=== PATIENT | female | born 1960 | race Caucasian/White ===

== ENCOUNTER → 2018-09-23 06:48 | Outpatient (CLI) | payer OTHER, SELFPAY ==
[2018-09-11 17:25] VITALS: BMI 29.0
[2018-09-23 09:00] LABS: Color, Urine Yellow (Yellow); Glucose, Dipstick Normal (Normal); Ketone-Dipstick Negative (Negative); Leukocyte Esterase-Dipstick 500 /ul (Negative); Nitrite-Dipstick Negative (Negative); Occult Blood-Urine 50 /ul (Negative); Protein-Dipstick Negative (Negative); Specific Gravity, Urine 1.015 (1.002-1.030); Urine Bilirubin Dipstick Negative (Negative); Urine Clarity Sl. Cloudy (Clear); Urine Urobilinogen Normal (Normal)
[2018-09-23 09:04] LABS: Absolute Lymphocyte Count 2.35 X10^3/ul (0.83-4.51); Basophil# 0.03 X10^3/uL; Basophil% 0.5 % (0-1); Eosinophil# 0.17 X10^3/uL; Eosinophils% 2.8 % (0-5); Hematocrit 39.7 % (37-47); Hemoglobin 12.9 g/dl (12.0-15.0); Lymphocyte # 2.35 X10^3/ul (4.0); Mean Corp Hgb Conc 32.5 g/gl (32-36); Mean Corpuscular Hgb 29.5 pg (27.0-32.0); Mean Corpuscular Volume 90.8 fL (81-99); Mean Platelet Vol. 10.6 fl (6.2-12.0); Monocyte# 0.49 X10^3/uL; Monocyte% 8.1 % (0-10); Neutrophil # 2.99 X10^3/uL (2.7-7.7); Neutrophil % 49.6 % (47-70); Platelet Count 258 K/mm3 (150-450); RBC Distribution Width CV 12.7 % (11.6-14.6); RBC Distribution Width SD 42.5 fl (35.1-43.9); Red Blood Count 4.37 M/mm3 (4.2-5.4)
[2018-09-23 09:06] LABS: POSITIVE COUNT NO; POSITIVE DIFFERENTIAL NO; POSITIVE MORPHOLOGY NO
[2018-09-23 09:12] LABS: White Blood Cells 10-25 SEEN /hpf (0-5)
[2018-09-23 09:13] LABS: Red Blood Cells-Urine 0-5 SEEN /hpf (0-5)
[2018-09-23 09:14] LABS: Bacteria 2+ /hpf (None Seen); Mucous, Urine RARE /hpf (<or=2+); Squamous Epithelial Cells - UA 0-5 SEEN /hpf (5-10)
[2018-09-23 09:25] LABS: Anion Gap 9 (5-15); BUN 15 mg/dL (7-18); BUN/Creat Ratio 17.6 RATIO (10-20); Calcium,Total 8.8 mg/dL (8.5-10.1); Chloride 106 mmol/L (98-107); Cholesterol 164 mg/dL (200); Creatinine, Serum 0.85 mg/dL (0.55-1.02); EST Glomerular Filtration Rate 73 mL/min (>60); Est Glom Filt Rate - Afr Amer 89 mL/min (>60); Glucose 83 mg/dL (74-106); High Density Lipoprotein 67 mg/dL; Potassium 4.4 mmol/L (3.5-5.1); Sodium Level 143 mmol/L (136-145); Triglycerides 64 mg/dL; Very Low Density Lipoprotein 13 mg/dL (5-40)
[2018-09-27 11:22] LABS: HPV APTIMA, High Risk Negative (Negative)
== END ==
PROVIDERS: Family Provider Internal Medicine; PCP Internal Medicine; Referring Provider Internal Medicine; Visit Provider Internal Medicine
DX: Z00.00 Encounter for general adult medical examination without abnormal findings (principal); Z12.4 Encounter for screening for malignant neoplasm of cervix; R31.9 Hematuria, unspecified
CPT/HCPCS: 36415; 80048; 80061; 81001; 85025; 87086; 87088; 87186; 87624; 88175; G0145

== ENCOUNTER → 2018-10-11 16:12 | Outpatient (CLI) | payer OTHER, SELFPAY ==
[2018-09-23 08:03] VITALS: BMI 29.2
[2018-10-11 16:16] LABS: Bacteria 0 SEEN /hpf (None Seen); Mucous, Urine 0 SEEN /hpf (<or=2+)
[2018-10-11 17:23] LABS: Color, Urine Yellow (Yellow); Glucose, Dipstick Normal (Normal); Ketone-Dipstick Negative (Negative); Leukocyte Esterase-Dipstick 100 /ul (Negative); Nitrite-Dipstick Negative (Negative); Occult Blood-Urine 25 /ul (Negative); Protein-Dipstick Negative (Negative); Urine Bilirubin Dipstick Negative (Negative); Urine Urobilinogen Normal (Normal)
[2018-10-11 17:36] LABS: Red Blood Cells-Urine 0-5 SEEN /hpf (0-5); Squamous Epithelial Cells - UA 0-5 SEEN /hpf (5-10); Urine Clarity Sl Cldy (Clear); White Blood Cells 5-10 SEEN /hpf (0-5)
== END ==
PROVIDERS: Family Provider Internal Medicine; PCP Internal Medicine; Referring Provider Internal Medicine; Visit Provider Internal Medicine
DX: N39.0 Urinary tract infection, site not specified (principal)
CPT/HCPCS: 81001

== ENCOUNTER → 2018-11-15 13:07 | Outpatient (CLI) | payer OTHER, SELFPAY ==
[2018-09-23 08:03] VITALS: BMI 29.2
[2018-11-15 13:17] LABS: Bacteria 0 SEEN /hpf (None Seen); Mucous, Urine 0 SEEN /hpf (<or=2+); Red Blood Cells-Urine 0 SEEN /hpf (0-5); Squamous Epithelial Cells - UA 0 SEEN /hpf (5-10); White Blood Cells 0 SEEN /hpf (0-5)
[2018-11-15 16:00] LABS: Color, Urine Yellow (Yellow); Glucose, Dipstick Normal (Normal); Ketone-Dipstick Negative (Negative); Leukocyte Esterase-Dipstick 25 /ul (Negative); Nitrite-Dipstick Negative (Negative); Occult Blood-Urine 10 /ul (Negative); Protein-Dipstick Negative (Negative); Specific Gravity, Urine 1.005 (1.002-1.030); Urine Bilirubin Dipstick Negative (Negative); Urine Clarity Clear (Clear); Urine Urobilinogen Normal (Normal)
== END ==
PROVIDERS: Family Provider Internal Medicine; PCP Internal Medicine; Referring Provider Internal Medicine; Visit Provider Internal Medicine
DX: R31.9 Hematuria, unspecified (principal)
CPT/HCPCS: 81001

== ENCOUNTER → 2019-04-12 07:51 | Outpatient (CLI) | payer OTHER, SELFPAY ==
[2018-11-21 17:20] VITALS: BMI 29.2
--- NOTE | 2019-04-12 08:01 | BI_ITS ---
MAMMOGRAPHY - BILATERAL SCREENING REASON FOR EXAM: Female, 58 years old. Routine annual screening examination. PERTINENT HISTORY: Personal history of breast cancer. History of prior left mastectomy with TRAM flap reconstructive surgery. TECHNIQUE: Digital bilateral breast chelle (3D mammographic acquisition) in the CC and MLO projections. 2-D mediolateral oblique (MLO) and craniocaudad (CC) views of both breasts were obtained. CAD: Full Field Digital Mammography with Computer Added Detection was performed. COMPARISON: Comparison is made with prior examination dated March 29, 2018. FINDINGS: Breast Composition: There are scattered areas of fibroglandular density. There are no dominant masses or suspicious calcifications. Surgical clips are seen in the axillary region of the left breast. No other significant abnormalities are identified. There has been no significant change since the prior study. BI/SCREENING MAMM (CAD), BILAT IMPRESSION: Stable bilateral screening mammogram. Yearly follow-up mammogram recommended. (A) ASSESSMENT CATEGORY: BIRADS Category 2: Benign. A letter regarding these results will be sent to the patient by the facility within 30 days. Approximately 10% of breast cancers are not detected by mammography. A normal mammogram should not delay biopsy of a clinically suspicious abnormality. [id number] Electronically Signed: Aba Moralez, at 10:42 EDT , Service support ,
== END ==
PROVIDERS: Family Provider Internal Medicine; PCP Internal Medicine; Referring Provider Obstetrics & Gynecology; Visit Provider Obstetrics & Gynecology
DX: Z12.31 Encounter for screening mammogram for malignant neoplasm of breast (principal)
CPT/HCPCS: 77067

== ENCOUNTER → 2019-05-23 12:25 | Outpatient (CLI) | payer OTHER, SELFPAY ==
[2019-02-28 12:54] VITALS: BMI 29.2
[2019-05-23 12:34] LABS: Mucous, Urine 0 SEEN /hpf (<or=2+); White Blood Cells 0 SEEN /hpf (0-5)
[2019-05-23 13:08] LABS: Color, Urine Yellow (Yellow); Glucose, Dipstick Normal (Normal); Ketone-Dipstick Negative (Negative); Leukocyte Esterase-Dipstick Negative /ul (Negative); Nitrite-Dipstick Negative (Negative); Occult Blood-Urine 25 /ul (Negative); Protein-Dipstick Negative (Negative); Urine Bilirubin Dipstick Negative (Negative); Urine Clarity Sl. Cloudy (Clear); Urine Urobilinogen Normal (Normal)
[2019-05-23 13:18] LABS: Bacteria RARE /hpf (None Seen); Red Blood Cells-Urine 0-5 SEEN /hpf (0-5); Squamous Epithelial Cells - UA 0-5 SEEN /hpf (5-10)
== END ==
PROVIDERS: Family Provider Internal Medicine; PCP Internal Medicine; Referring Provider Internal Medicine; Visit Provider Internal Medicine
DX: N39.0 Urinary tract infection, site not specified (principal)
CPT/HCPCS: 81001

== ENCOUNTER → 2019-12-02 08:54 | Outpatient (CLI) | payer OTHER, SELFPAY ==
[2019-12-02 08:25] VITALS: BMI 27.3
[2019-12-02 12:26] LABS: Absolute Lymphocyte Count 2.08 X10^3/uL (0.83-4.51); Absolute Neutrophil Count 2.9 X10^3/uL (2.0-7.7); Basophil# 0.05 X10^3/uL; Basophil% 0.9 % (0-1); Eosinophil# 0.19 X10^3/uL; Eosinophils% 3.3 % (0-5); Hematocrit 42.4 % (37-47); Hemoglobin 13.6 g/dL (12.0-15.0); Lymphocyte # 2.08 X10^3/ul (4.0); Lymphocyte % 36.5 % (19-41); Mean Corp Hgb Conc 32.1 g/dL (32-36); Mean Corpuscular Hgb 29.8 pg (27.0-32.0); Mean Platelet Vol. 10.8 fl (6.2-12.0); Monocyte# 0.48 X10^3/uL; Monocyte% 8.4 % (0-10); NRBC Flagged by Analyzer 0 % (0-5); Neutrophil # 2.89 X10^3/uL (2.7-7.7); Neutrophil % 50.7 % (47-70); Platelet Count 275 K/mm3 (150-450); RBC Distribution Width CV 12.6 % (11.6-14.6); Red Blood Count 4.56 M/mm3 (4.2-5.4); White Blood Count 5.7 K/mm3 (4.4-11.0)
[2019-12-02 12:42] LABS: ALB/GLOB Ratio 1.2 RATIO (0.9-2.4); AST(SGOT) 24 U/L (15-37); Alanine Aminotransfer ALT/SGPT 32 U/L (13-56); Albumin, Serum 4.1 g/dL (3.2-5.0); Alkaline Phosphatase 98 U/L (45-117); Anion Gap 5 (5-15); BUN 12 mg/dL (7-18); BUN/Creat Ratio 14.5 RATIO (10-20); Calcium,Total 9.5 mg/dL (8.5-10.1); Chloride 107 mmol/L (98-107); Cholesterol 183 mg/dL (200); Creatinine, Serum 0.82 mg/dL (0.55-1.02); EST Glomerular Filtration Rate 76 mL/min (>60); Est Glom Filt Rate - Afr Amer 92 mL/min (>60); Globulin 3.5 g/dL (2.2-4.2); Glucose 87 mg/dL (74-106); High Density Lipoprotein 74 mg/dL; Potassium 4.1 mmol/L (3.5-5.1); Protein, Total 7.6 g/dL (6.4-8.2); Sodium Level 141 mmol/L (136-145); Triglycerides 74 mg/dL; Very Low Density Lipoprotein 15 mg/dL (5-40)
== END ==
PROVIDERS: PCP Internal Medicine; Visit Provider Internal Medicine
DX: Z00.00 Encounter for general adult medical examination without abnormal findings (principal)
CPT/HCPCS: 36415; 80053; 80061; 85025

== ENCOUNTER → 2020-05-06 17:00 | Outpatient (CLI) | payer OTHER, SELFPAY ==
[2019-10-01 09:26] VITALS: BMI 29.2
[2020-03-29 17:12] VITALS: BMI 29.2
--- NOTE | 2020-05-06 16:55 | BI_ITS ---
MAMMOGRAPHY - UNILATERAL SCREENING: RIGHT BREAST REASON FOR EXAM: Female, 59 years old. Routine annual screening examination (unilateral). PERTINENT HISTORY: Personal history of breast cancer with previous left mastectomy. TECHNIQUE: Digital examination. Mediolateral oblique (MLO) and craniocaudad (CC) views of the breast were obtained, along with 3-D tomosynthesis. CAD: CAD was performed on this study. COMPARISON: 04/12/2019 FINDINGS: Breast Composition: There are scattered areas of fibroglandular density. There are no dominant masses or suspicious calcifications. No other significant abnormalities are identified. BI/SCREEN MAMM (CAD) W/JAIMEE UNI R IMPRESSION: Stable bilateral screening mammogram. ASSESSMENT CATEGORY: BIRADS Category 2: Benign. A letter regarding these results will be sent to the patient by the facility within 30 days. FOLLOW UP RECOMMENDATION: Yearly follow up mammogram recommended. (A) [id number] Approximately 10% of breast cancers are not detected by mammography. A normal mammogram should not delay biopsy of a clinically suspicious abnormality. [id number] Electronically Signed: Bradford Henson MD at 8:16 EDT , Service support ,
== END ==
PROVIDERS: Family Provider Internal Medicine; PCP Internal Medicine; Referring Provider Obstetrics & Gynecology; Visit Provider Obstetrics & Gynecology
DX: Z12.31 Encounter for screening mammogram for malignant neoplasm of breast (principal); Z85.3 Personal history of malignant neoplasm of breast; Z90.12 Acquired absence of left breast and nipple
CPT/HCPCS: 77063; 77067

== ENCOUNTER → 2020-07-06 | Outpatient (CLI) | payer OTHER, SELFPAY ==
[2020-07-06 06:21] VITALS: BMI 29.2
[2020-07-06 10:22] LABS: Mucous, Urine 0 SEEN /hpf (<or=2+); Squamous Epithelial Cells - UA 0 SEEN /hpf (5-10)
[2020-07-06 10:27] LABS: Color, Urine Brown (Yellow); Glucose, Dipstick Normal (Normal); Ketone-Dipstick Negative (Negative); Leukocyte Esterase-Dipstick 500 /ul (Negative); Nitrite-Dipstick Positive (Negative); Occult Blood-Urine 250 /ul (Negative); Protein-Dipstick 100 mg/dl (Negative); Specific Gravity, Urine 1.015 (1.002-1.030); Urine Bilirubin Dipstick Negative (Negative); Urine Clarity Cloudy (Clear); Urine Urobilinogen Normal (Normal)
[2020-07-06 10:39] LABS: White Blood Cells >100 SEEN /hpf (0-5)
[2020-07-06 10:40] LABS: Bacteria 4+ /hpf (None Seen); Red Blood Cells-Urine > 100 SEEN /hpf (0-5); Renal Epithelial Cells 0-5 SEEN /hpf (0-5)
== END | disposition home or self-care (01) ==
LOC: LABSPEC 10:14
PROVIDERS: PCP Internal Medicine; Referring Provider Physician Assistant Surgical; Visit Provider Physician Assistant Surgical
DX: R30.0 Dysuria (principal)
CPT/HCPCS: 81001; 87077; 87086; 87088; 87186

== ENCOUNTER → 2020-12-14 08:43 | Outpatient (CLI) | payer OTHER, SELFPAY ==
[2020-12-14 08:17] VITALS: BMI 28.5
[2020-12-14 12:15] LABS: Absolute Lymphocyte Count 1.94 X10^3/uL (0.83-4.51); Absolute Neutrophil Count 2.8 X10^3/uL (2.0-7.7); Basophil# 0.06 X10^3/uL; Basophil% 1.1 % (0-1); Eosinophil# 0.24 X10^3/uL; Eosinophils% 4.4 % (0-5); Hematocrit 42.8 % (37-47); Hemoglobin 13.7 g/dL (12.0-15.0); Lymphocyte # 1.94 X10^3/ul (4.0); Lymphocyte % 35.6 % (19-41); Mean Corpuscular Hgb 29.8 pg (27.0-32.0); Mean Platelet Vol. 10.5 fl (6.2-12.0); Monocyte# 0.45 X10^3/uL; Monocyte% 8.3 % (0-10); NRBC Flagged by Analyzer 0 % (0-5); Neutrophil # 2.75 X10^3/uL (2.7-7.7); Neutrophil % 50.4 % (47-70); Platelet Count 297 K/mm3 (150-450); RBC Distribution Width CV 12.5 % (11.6-14.6); RBC Distribution Width SD 42.7 fl (35.1-43.9); White Blood Count 5.5 K/mm3 (4.4-11.0)
[2020-12-14 12:44] LABS: ALB/GLOB Ratio 1.3 RATIO (0.9-2.4); AST(SGOT) 24 U/L (15-37); Alanine Aminotransfer ALT/SGPT 29 U/L (13-56); Albumin, Serum 4.2 g/dL (3.2-5.0); Alkaline Phosphatase 108 U/L (45-117); Anion Gap 6 (5-15); BUN 13 mg/dL (7-18); Calcium,Total 9.2 mg/dL (8.5-10.1); Chloride 106 mmol/L (98-107); Cholesterol 183 mg/dL (200); Creatinine, Serum 0.81 mg/dL (0.55-1.02); EST Glomerular Filtration Rate 77 mL/min (>60); Est Glom Filt Rate - Afr Amer 93 mL/min (>60); Globulin 3.3 g/dL (2.2-4.2); Glucose 86 mg/dL (74-106); High Density Lipoprotein 82 mg/dL; Potassium 4.1 mmol/L (3.5-5.1); Protein, Total 7.5 g/dL (6.4-8.2); Sodium Level 139 mmol/L (136-145); Triglycerides 48 mg/dL; Very Low Density Lipoprotein 10 mg/dL (5-40)
== END ==
PROVIDERS: PCP Internal Medicine; Visit Provider Internal Medicine
DX: Z00.00 Encounter for general adult medical examination without abnormal findings (principal)
CPT/HCPCS: 36415; 80053; 80061; 85025

== ENCOUNTER → 2021-03-08 12:33 | Outpatient (CLI) | payer OTHER, SELFPAY ==
[2020-12-14 08:17] VITALS: BMI 28.5
--- NOTE | 2021-03-08 12:35 | US_ITS ---
STUDY: ULTRASOUND BREAST - RIGHT REASON FOR EXAM: Female, 60 years old. Palpable lump in the right breast. Prior right breast lift. TECHNIQUE: Axial and longitudinal images of the RIGHT breast were performed with a high resolution ultrasound transducer. # OF IMAGES: 38 COMPARISON: Comparison is made with prior mammogram done earlier today. FINDINGS: RIGHT Breast: The palpable abnormality corresponds to a 4 mm x 4 mm x 3 mm cyst in the retroareolar region of the breast. There is a 6 mm x 5 mm x 14 mm area of shadowing deep to the surgical scar. US/Breast Limited Unilateral IMPRESSION: 4 mm x 4 mm x 3 mm cyst in the retroareolar region of the breast corresponding to the palpable abnormality. 6 mm x 5 mm x 14 mm area of shadowing deep to the surgical scar. ASSESSMENT CATEGORY: BIRADS Category 2: Benign. A letter regarding these results will be sent to the patient by the facility within 30 days. Electronically Signed: Aba Moralez MD at 15:29 EDT , Service support ,
--- NOTE | 2021-03-08 12:36 | BI_ITS ---
MAMMOGRAPHY - UNILATERAL DIAGNOSTIC: RIGHT BREAST REASON FOR EXAM: Female, 60 years old. Right breast lump at the breast lift site. PERTINENT HISTORY: Personal history of breast cancer. Prior left mastectomy and TRAM flap reconstruction. TECHNIQUE: Digital unilateral breast chelle (3D mammographic acquisition) in the CC and MLO projections. 2-D mediolateral oblique (MLO) and craniocaudad (CC) views of both breasts were obtained. CAD: Full Field Digital Mammography with Computer Added Detection was performed. COMPARISON: Comparison is made with prior study dated 05/06/2020 and 04/12/2019. FINDINGS: Breast Composition: There are scattered areas of fibroglandular density. There are no dominant masses or suspicious calcifications. No other significant abnormalities are identified. BI/DIAG MAMM W/CAD, UNILAT IMPRESSION: Stable unilateral diagnostic mammogram. With the patient''s history of a palpable left in the right breast, correlation with ultrasound is recommended. ASSESSMENT CATEGORY: BIRADS Category 0: Incomplete. Need additional imaging evaluation. A letter regarding these results will be sent to the patient by the facility within 30 days. Approximately 10% of breast cancers are not detected by mammography. A normal mammogram should not delay biopsy of a clinically suspicious abnormality. Electronically Signed: Aba Moralez MD at 13:50 EDT , Service support ,
== END ==
PROVIDERS: PCP Internal Medicine; Referring Provider Nurse Practitioner Women's Health; Visit Provider Nurse Practitioner Women's Health
DX: N60.01 Solitary cyst of right breast (principal); Z90.12 Acquired absence of left breast and nipple; Z85.3 Personal history of malignant neoplasm of breast
CPT/HCPCS: 76642; 77061; 77065; G0279

== ENCOUNTER → 2021-09-23 07:55 | Outpatient (CLI) | payer OTHER, SELFPAY ==
--- NOTE | 2021-09-23 07:59 | US_ITS ---
STUDY: ULTRASOUND BREAST - RIGHT REASON FOR EXAM: Female, 61 years old. Palpable lump in the right breast. TECHNIQUE: Axial and longitudinal images of the RIGHT breast were performed with a high resolution ultrasound transducer. # OF IMAGES: 23 COMPARISON: Comparison is made with prior ultrasound of the right breast dated 03/08/2021 as well as the mammogram the same date. FINDINGS: RIGHT Breast: There is a 4 mm x 4 mm x 3 mm cyst at 11 o''clock position of the breast just deep to the areola. US/Breast Limited Unilateral IMPRESSION: 4 mm x 4 mm x 3 mm cyst at the 11 o''clock position of the breast just deep to the skin surface. ASSESSMENT CATEGORY: BIRADS Category 2: Benign. A letter regarding these results will be sent to the patient by the facility within 30 days. Electronically Signed: Aba Moralez MD at 9:49 EST , Service support ,
== END ==
PROVIDERS: PCP Internal Medicine; Visit Provider Surgery
DX: N60.01 Solitary cyst of right breast (principal)
CPT/HCPCS: 76642

== ENCOUNTER 2022-01-02 08:52 | Outpatient (CLI) | payer OTHER, SELFPAY ==
[2022-01-02 12:09] LABS: ALB/GLOB Ratio 1.2 RATIO (0.9-2.4); AST(SGOT) 21 U/L (15-37); Alanine Aminotransfer ALT/SGPT 27 U/L (13-56); Albumin, Serum 3.8 g/dL (3.2-5.0); Alkaline Phosphatase 87 U/L (45-117); Anion Gap 3 (5-15); BUN 11 mg/dL (7-18); BUN/Creat Ratio 13.6 RATIO (10-20); Calcium,Total 8.5 mg/dL (8.5-10.1); Chloride 106 mmol/L (98-107); Cholesterol 171 mg/dL (200); Creatinine, Serum 0.81 mg/dL (0.55-1.02); EST Glomerular Filtration Rate 77 mL/min (>60); Est Glom Filt Rate - Afr Amer 93 mL/min (>60); Globulin 3.2 g/dL (2.2-4.2); Glucose 89 mg/dL (74-106); High Density Lipoprotein 67 mg/dL; Sodium Level 139 mmol/L (136-145); Triglycerides 64 mg/dL; Very Low Density Lipoprotein 13 mg/dL (5-40)
[2022-01-02 12:10] LABS: Absolute Lymphocyte Count 1.72 X10^3/uL (0.83-4.51); Absolute Neutrophil Count 1.7 X10^3/uL (2.0-7.7); Basophil# 0.05 X10^3/uL; Basophil% 1.2 % (0-1); Eosinophil# 0.28 X10^3/uL; Eosinophils% 6.6 % (0-5); Hematocrit 38.4 % (37-47); Hemoglobin 12.7 g/dL (12.0-15.0); Lymphocyte # 1.72 X10^3/ul (0.83-4.51); Lymphocyte % 40.7 % (19-41); Mean Corp Hgb Conc 33.1 g/dL (32-36); Mean Corpuscular Hgb 30.5 pg (27.0-32.0); Mean Corpuscular Volume 92.3 fL (81-99); Mean Platelet Vol. 10.5 fl (6.2-12.0); Monocyte# 0.44 X10^3/uL; Monocyte% 10.4 % (0-10); NRBC Flagged by Analyzer 0 % (0-5); Neutrophil # 1.73 X10^3/uL (2.7-7.7); Neutrophil % 40.9 % (47-70); Platelet Count 258 K/mm3 (150-450); RBC Distribution Width SD 44.2 fl (35.1-43.9); Red Blood Count 4.16 M/mm3 (4.2-5.4); White Blood Count 4.2 K/mm3 (4.4-11.0)
== END 2022-01-02 23:59 | disposition home or self-care (01) ==
LOC: BIMLAB 08:53
PROVIDERS: PCP Internal Medicine; Referring Provider Physician Assistant; Visit Provider Physician Assistant
DX: Z00.00 Encounter for general adult medical examination without abnormal findings (principal); Z13.220 Encounter for screening for lipoid disorders
CPT/HCPCS: 36415; 80053; 80061; 85025

== ENCOUNTER → 2022-03-15 | Outpatient (CLI) | payer OTHER, SELFPAY ==
--- NOTE | 2022-03-15 07:15 | BI_ITS ---
MAMMOGRAPHY - UNILATERAL SCREENING: RIGHT BREAST REASON FOR EXAM: Female, 61 years old. Routine annual screening examination (unilateral). PERTINENT HISTORY: Personal history of breast cancer. Prior left mastectomy with TRAM flap reconstruction. TECHNIQUE: Digital unilateral breast jaimee (3D mammographic acquisition) in the CC and MLO projections. 2-D mediolateral oblique (MLO) and craniocaudad (CC) views of both breasts were obtained. CAD: Full Field Digital Mammography with Computer Added Detection was performed. COMPARISON: Comparison is made with prior study dated 03/08/2021. FINDINGS: Breast Composition: There are scattered areas of fibroglandular density. There are no dominant masses or suspicious calcifications. No other significant abnormalities are identified. There has been no significant change since the prior study. BI/SCREEN MAMM (CAD) W/JAIMEE UNI R IMPRESSION: Stable unilateral screening mammogram. Yearly follow-up mammogram recommended. (A) ASSESSMENT CATEGORY: BIRADS Category 1: Negative. A letter regarding these results will be sent to the patient by the facility within 30 days. Approximately 10% of breast cancers are not detected by mammography. A normal mammogram should not delay biopsy of a clinically suspicious abnormality. [id number] Electronically Signed: Aba Moralez MD at 9:36 EDT ,
== END | disposition home or self-care (01) ==
LOC: OPBI 07:13
PROVIDERS: PCP Internal Medicine; Visit Provider Surgery
DX: Z12.31 Encounter for screening mammogram for malignant neoplasm of breast (principal); Z90.12 Acquired absence of left breast and nipple; Z85.3 Personal history of malignant neoplasm of breast
CPT/HCPCS: 77063; 77067

== ENCOUNTER → 2022-07-19 | Outpatient (CLI) | payer OTHER, SELFPAY ==
--- NOTE | 2022-07-19 | BRBX_PTH ---
PATIENT: PATSY VASQUEZ LOC: [facility] U#:[id number] AGE/SX: 61/F ROOM: RE07/19/[address]: Dr. Med Cole MD : 1960 BED: DIS: 07/19/2022 SPEC #: [id number] RECD: 07/19/22 16:02 STATUS: BRAYAN SEPULVEDA #: [id number] ANGELY: 07/19/22 00:[address]: Med Cole DEPT: SURGICAL PATHOLOGY RECD BY: Vicente Santana ENTERED: 07/20/22 08:52 SP TYPE: BREAST BX OTHR DR: Dr. Tiana Raymundo MD Tissues: Right breast, NOS Procedures: Surgery Specimen Level IV HEADER OPERATION: Right breast excision PRE-OP DIAGNOSIS: Right breast granuloma TISSUE SUBMITTED: Right breast tissue MICROSCOPIC DIAGNOSIS Right breast lesion, excision: Consistent hidrocystoma. Negative for atypia or malignancy. See comment. SJ:ravi 07/21/2022 COMMENT The specimen consists of pieces of skin with underlying adipose tissue containing eccrine and apocrine sweat glands. Breast glandular or ductal tissue are not identified. Case has been reviewed in consultation with Dr. Appiah who concurs with the above diagnosis. IDC:AM MICROSCOPIC DESCRIPTION Slides are reviewed. GROSS DESCRIPTION Received in fixative is one container labeled with the patient's name and designated right breast tissue. The specimen consists of a piece of skin with underlying tissue and three pieces of adipose tissue. The entire specimen measures in aggregate 1.5 x 1.5 x 0.2 cm. The entire specimen is submitted in one cassette. / RAZ:ravi 07/20/2022 TC:5 [facility]: [id number]
== END | disposition home or self-care (01) ==
LOC: LABSPEC 16:07
PROVIDERS: PCP Internal Medicine; Referring Provider Surgery; Visit Provider Surgery
DX: L92.8 Other granulomatous disorders of the skin and subcutaneous tissue (principal)
CPT/HCPCS: 88305

== ENCOUNTER → 2022-11-24 | Outpatient (CLI) | payer OTHER, SELFPAY ==
[2022-12-03 22:04] LABS: HPV APTIMA, High Risk Negative (Negative)
== END | disposition home or self-care (01) ==
PROVIDERS: PCP Internal Medicine; Visit Provider Obstetrics & Gynecology
DX: Z12.4 Encounter for screening for malignant neoplasm of cervix (principal)
CPT/HCPCS: 87624; 88175; G0145

== ENCOUNTER → 2023-01-03 | Outpatient (CLI) | payer OTHER, SELFPAY ==
[2023-01-03 12:26] LABS: Absolute Neutrophil Count 1.8 X10^3/uL (2.0-7.7); Basophil# 0.06 X10^3/uL; Basophil% 1.2 % (0-1); Eosinophil# 0.31 X10^3/uL; Eosinophils% 6.2 % (0-5); Hematocrit 41.4 % (37-47); Hemoglobin 13.4 g/dL (12.0-15.0); Lymphocyte % 46.3 % (19-41); Mean Corp Hgb Conc 32.4 g/dL (32-36); Mean Corpuscular Hgb 29.8 pg (27.0-32.0); Mean Corpuscular Volume 92.2 fL (81-99); Mean Platelet Vol. 10.4 fl (6.2-12.0); Monocyte# 0.51 X10^3/uL; Monocyte% 10.3 % (0-10); NRBC Flagged by Analyzer 0 % (0-5); Neutrophil # 1.78 X10^3/uL (2.7-7.7); Neutrophil % 35.8 % (47-70); Platelet Count 253 K/mm3 (150-450); RBC Distribution Width CV 12.6 % (11.6-14.6); RBC Distribution Width SD 42.9 fl (35.1-43.9); Red Blood Count 4.49 M/mm3 (4.2-5.4)
[2023-01-03 13:11] LABS: ALB/GLOB Ratio 1.3 RATIO (0.9-2.4); AST(SGOT) 25 U/L (15-37); Alanine Aminotransfer ALT/SGPT 32 U/L (13-56); Albumin, Serum 4.2 g/dL (3.2-5.0); Alkaline Phosphatase 84 U/L (45-117); Anion Gap 5 (5-15); BUN 12 mg/dL (7-18); BUN/Creat Ratio 15.9 RATIO (10-20); Calcium,Total 9.6 mg/dL (8.5-10.1); Chloride 107 mmol/L (98-107); Cholesterol 164 mg/dL (200); Creatinine, Serum 0.76 mg/dL (0.55-1.02); EST Glomerular Filtration Rate 83 mL/min (>60); Est Glom Filt Rate - Afr Amer 100 mL/min (>60); Globulin 3.2 g/dL (2.2-4.2); Glucose 95 mg/dL (74-106); High Density Lipoprotein 69 mg/dL; Potassium 4.3 mmol/L (3.5-5.1); Protein, Total 7.4 g/dL (6.4-8.2); Sodium Level 140 mmol/L (136-145); Thyroid Stim Hormone (TSH) 4.56 uIU/mL (0.358-3.74); Triglycerides 60 mg/dL; Very Low Density Lipoprotein 12 mg/dL (5-40)
[2023-01-03 14:29] LABS: T4 Free Direct 0.88 ng/dL (0.76-1.46)
== END | disposition home or self-care (01) ==
LOC: BIMLAB 08:46
PROVIDERS: PCP Internal Medicine; Referring Provider Nurse Practitioner Family; Visit Provider Nurse Practitioner Family
DX: Z00.00 Encounter for general adult medical examination without abnormal findings (principal)
CPT/HCPCS: 36415; 80053; 80061; 84439; 84443; 85025

== ENCOUNTER → 2023-03-23 | Outpatient (CLI) | payer OTHER, SELFPAY ==
--- NOTE | 2023-03-23 13:49 | BI_ITS ---
MAMMOGRAPHY - UNILATERAL SCREENING: RIGHT BREAST REASON FOR EXAM: Female, 62 years old. Routine annual screening examination (unilateral). PERTINENT HISTORY: Personal history of breast cancer. History of left mastectomy with TRAM flap reconstruction. TECHNIQUE: Digital unilateral breast jaimee (3D mammographic acquisition) in the CC and MLO projections. 2-D mediolateral oblique (MLO) and craniocaudad (CC) views of both breasts were obtained. CAD: Full Field Digital Mammography with Computer Added Detection was performed. COMPARISON: Comparison is made with prior study dated March 15, 2022 and March 08, 2021. FINDINGS: Breast Composition: There are scattered areas of fibroglandular density. There are no dominant masses or suspicious calcifications. No other significant abnormalities are identified. There has been no significant change since the prior study. BI/SCREEN MAMM (CAD) W/JAIMEE UNI R IMPRESSION: Stable unilateral screening mammogram. Yearly follow-up mammogram recommended. (A) ASSESSMENT CATEGORY: BIRADS Category 1: Negative. A letter regarding these results will be sent to the patient by the facility within 30 days. Approximately 10% of breast cancers are not detected by mammography. A normal mammogram should not delay biopsy of a clinically suspicious abnormality. [id number] Electronically Signed: Aba Moralez MD at 8:36 EDT ,
== END | disposition home or self-care (01) ==
LOC: OPBI 13:48
PROVIDERS: PCP Internal Medicine; Referring Provider Obstetrics & Gynecology; Visit Provider Obstetrics & Gynecology
DX: Z12.31 Encounter for screening mammogram for malignant neoplasm of breast (principal); Z85.3 Personal history of malignant neoplasm of breast; Z90.12 Acquired absence of left breast and nipple
CPT/HCPCS: 77063; 77067

== ENCOUNTER → 2023-11-30 | Outpatient (CLI) | payer OTHER, SELFPAY ==
--- NOTE | 2023-11-30 | LES_PTH ---
PATHOLOGY RESULTS PATIENT: PATSY VASQUEZ LOC: [facility] U#:[id number] AGE/SX: 63/F ROOM: RE11/30/[address]: Dr. Cheryl Rivera MD : 1960 BED: DIS: 11/30/2023 SPEC #: [id number] RECD: 11/30/23 16:42 STATUS: BRAYAN SEPULVEDA #: [id number] ANGELY: 11/30/23 00:[address]: Cheryl Rivera DEPT: SURGICAL PATHOLOGY RECD BY: Vicente Santana ENTERED: 12/03/23 08:14 SP TYPE: Lesion OTHR DR: Dr. Tiana Raymundo MD Tissues: Skin appendage, NOS Procedures: Surgery Specimen Level IV HEADER OPERATION: Umbilical lesion removal PRE-OP DIAGNOSIS: Umbilical lesion TISSUE SUBMITTED: Umbilical lesion MICROSCOPIC DIAGNOSIS Umbilical lesion, biopsy: Cutaneous horn with extensive hyperkeratosis and superficial bacterial colonization. Negative for malignancy. See comment. SJ:ravi 12/04/2023 COMMENT The specimen consists of only superficial portion of the lesion. If there is high suspicion of malignancy, rebiopsy is suggested if clinically indicated. Clinical correlation and appropriate follow up are necessary. Case has been reviewed in consultation with Dr. Appiah who concurs with the above diagnosis. IDC:AM MICROSCOPIC DESCRIPTION Slides are reviewed. GROSS DESCRIPTION Received is one container labeled with the patient's name and not further designated. The specimen consists of a polypoid piece of eli-brown skin measuring 1.5 x 0.5 x 0.4 cm. The specimen is inked, bisected and submitted entirely in one cassette. / RAZ:ravi 12/03/2023 TC:5 CPT: 73944
== END | disposition home or self-care (01) ==
LOC: LABSPEC 16:47
PROVIDERS: PCP Internal Medicine; Referring Provider Obstetrics & Gynecology; Visit Provider Obstetrics & Gynecology
DX: L85.8 Other specified epidermal thickening (principal); L57.0 Actinic keratosis
CPT/HCPCS: 88305

== ENCOUNTER → 2024-01-15 | Outpatient (CLI) | payer OTHER, SELFPAY ==
[2024-01-15 10:03] LABS: Absolute Lymphocyte Count 2.12 X10^3/uL (0.83-4.51); Absolute Neutrophil Count 1.6 X10^3/uL (2.0-7.7); Basophil# 0.05 X10^3/uL; Basophil% 1.1 % (0-1); Eosinophil# 0.25 X10^3/uL; Eosinophils% 5.5 % (0-5); Hematocrit 40.9 % (37-47); Hemoglobin 13.5 g/dL (12.0-15.0); Lymphocyte # 2.12 X10^3/ul (0.83-4.51); Lymphocyte % 46.7 % (19-41); Mean Corpuscular Volume 90.9 fL (81-99); Mean Platelet Vol. 10.4 fl (6.2-12.0); Monocyte# 0.53 X10^3/uL; Monocyte% 11.7 % (0-10); NRBC Flagged by Analyzer 0 % (0-5); Neutrophil # 1.59 X10^3/uL (2.7-7.7); Platelet Count 267 K/mm3 (150-450); RBC Distribution Width CV 12.2 % (11.6-14.6); RBC Distribution Width SD 40.5 fl (35.1-43.9); White Blood Count 4.5 K/mm3 (4.4-11.0)
[2024-01-15 10:47] LABS: ALB/GLOB Ratio 1.2 RATIO (0.9-2.4); AST(SGOT) 25 U/L (15-37); Alanine Aminotransfer ALT/SGPT 32 U/L (13-56); Alkaline Phosphatase 101 U/L (45-117); Anion Gap 5 (5-15); BUN 13 mg/dL (7-18); BUN/Creat Ratio 15.7 RATIO (10-20); Calcium,Total 9.4 mg/dL (8.5-10.1); Chloride 106 mmol/L (98-107); Cholesterol 175 mg/dL (200); Creatinine, Serum 0.83 mg/dL (0.55-1.02); EST Glomerular Filtration Rate 75 mL/min (>60); Est Glom Filt Rate - Afr Amer 90 mL/min (>60); Globulin 3.4 g/dL (2.2-4.2); Glucose 87 mg/dL (74-106); High Density Lipoprotein 68 mg/dL; Magnesium 2.5 mg/dL (1.6-2.6); Protein, Total 7.4 g/dL (6.4-8.2); Sodium Level 139 mmol/L (136-145); Triglycerides 73 mg/dL; Very Low Density Lipoprotein 15 mg/dL (5-40)
[2024-01-15 11:03] LABS: Vitamin B12 674 pg/mL (211-911); Vitamin D,25 Hydroxy 46.6 ng/mL
[2024-01-15 12:17] LABS: Hemoglobin A1c 5.3 % (3.8-5.6)
== END | disposition home or self-care (01) ==
LOC: MTLAB 07:04
PROVIDERS: PCP Family Medicine; Referring Provider Family Medicine; Visit Provider Family Medicine
DX: Z13.0 Encounter for screening for diseases of the blood and blood-forming organs and certain disorders involving the immune mechanism (principal); Z13.220 Encounter for screening for lipoid disorders; Z13.228 Encounter for screening for other metabolic disorders; Z13.29 Encounter for screening for other suspected endocrine disorder; R25.2 Cramp and spasm
CPT/HCPCS: 36415; 80053; 80061; 82306; 82607; 83036; 83735; 84443; 85025

== ENCOUNTER → 2024-01-18 | Outpatient (CLI) | payer OTHER, SELFPAY ==
--- NOTE | 2024-01-18 13:47 | US_ITS ---
STUDY: ULTRASOUND OF THE FEMALE PELVIS - COMPLETE REASON FOR EXAM: Female, 63 years old. Pelvic bloating LMP: Unknown. TECHNIQUE: Transabdominal and Transvaginal TECHNICAL QUALITY: Adequate. COMPARISON: None. FINDINGS: The uterus is anteverted and is in a midline position. The uterus measures 6.2 x 4.9 x 3.3 cm. There is a Nabothian cyst of the cervix. The endometrium measures 4 mm in thickness, and is hyperechoic. There is no demonstrated endometrial mass. There is 1.3 cm hypoechoic mass compatible with fibroid. I.U.D. - The patient does not have an I.U.D. The right ovary is non-visualized. The left ovary is visualized. The left ovary measures 2.7 x 1.7 x 1.0 cm. There is no left ovarian cyst or ovarian mass. There is no visualized left adnexal mass or complex lesion. There is normal arterial and normal venous vascularity. There is no fluid in the cul-de-sac. The visualized bladder is unremarkable. US/Pelvic (Non ) IMPRESSION: Small uterine fibroid. Nonvisualized right ovary. Electronically Signed: George Oliveira MD at 20:09 EDT ,
== END | disposition home or self-care (01) ==
PROVIDERS: PCP Family Medicine; Referring Provider Obstetrics & Gynecology; Visit Provider Obstetrics & Gynecology
DX: R14.0 Abdominal distension (gaseous) (principal)
CPT/HCPCS: 76830; 76856

== ENCOUNTER → 2024-01-25 | Outpatient (CLI) | payer OTHER, SELFPAY ==
[2024-01-25 15:43] LABS: Absolute Lymphocyte Count 2.32 X10^3/uL (0.83-4.51); Absolute Neutrophil Count 2.2 X10^3/uL (2.0-7.7); Basophil# 0.06 X10^3/uL; Basophil% 1.1 % (0-1); Eosinophil# 0.26 X10^3/uL; Eosinophils% 4.8 % (0-5); Hematocrit 37.6 % (37-47); Hemoglobin 12.1 g/dL (12.0-15.0); Lymphocyte # 2.32 X10^3/ul (0.83-4.51); Lymphocyte % 42.8 % (19-41); Mean Corp Hgb Conc 32.2 g/dL (32-36); Mean Corpuscular Hgb 29.3 pg (27.0-32.0); Mean Platelet Vol. 10.7 fl (6.2-12.0); Monocyte% 11.1 % (0-10); NRBC Flagged by Analyzer 0 % (0-5); Neutrophil # 2.17 X10^3/uL (2.7-7.7); Platelet Count 291 K/mm3 (150-450); RBC Distribution Width CV 12.5 % (11.6-14.6); RBC Distribution Width SD 41.3 fl (35.1-43.9); Red Blood Count 4.13 M/mm3 (4.2-5.4); White Blood Count 5.4 K/mm3 (4.4-11.0)
[2024-01-25 17:31] LABS: Free T3 2.4 pg/mL (2.18-3.98); T4 Free Direct 0.89 ng/dL (0.76-1.46); Thyroid Stim Hormone (TSH) 4.88 uIU/mL (0.358-3.74)
[2024-01-29 17:07] LABS: Anti-Thyroglobulin AB < 1.0 IU/mL (0.0-0.9); Thyroglobulin, Serum Qt. 10.4 ng/mL (1.5-38.5); Thyroid Peroxidase AB 62 IU/mL (0-34); Thyroid Stim Immunoglob <0.10 IU/L (0.00-0.55)
== END | disposition home or self-care (01) ==
LOC: MTLAB 11:31
PROVIDERS: PCP Family Medicine; Referring Provider Nurse Practitioner Family; Visit Provider Nurse Practitioner Family
DX: Z00.00 Encounter for general adult medical examination without abnormal findings (principal)
CPT/HCPCS: 36415; 84432; 84439; 84443; 84445; 84481; 85025; 86376; 86800

== ENCOUNTER → 2024-01-31 | Outpatient (CLI) | payer OTHER, SELFPAY ==
--- NOTE | 2024-01-31 16:19 | US_ITS ---
STUDY: THYROID ULTRASOUND REASON FOR EXAM: Female, 63 years old. ENLARGED THYROID TECHNIQUE: Ultrasound evaluation of the thyroid was performed with real-time and static parmar-scale imaging. COMPARISON: None. FINDINGS: RIGHT LOBE: The right lobe of the thyroid gland measures 4.1 x 1.3 x 1.4 cm. There is a heterogeneous echotexture. There are no demonstrated solid, cystic or complex lesions. LEFT LOBE: The left lobe of the thyroid gland measures 3.5 x 1.0 x 1.1 cm. There is a heterogeneous echotexture. There are no demonstrated solid, cystic or complex lesions. ISTHMUS: The isthmus measures 2 mm thick. . The regional lymph nodes are normal. US/Head/Neck Soft Tissue IMPRESSION: Thyroiditis but no dominant nodule. Electronically Signed: Yehuda Weaver MD at 23:54 EDT ,
== END | disposition home or self-care (01) ==
LOC: US 16:16
PROVIDERS: PCP Nurse Practitioner Family; Referring Provider Nurse Practitioner Family; Visit Provider Nurse Practitioner Family
DX: E04.9 Nontoxic goiter, unspecified (principal)
CPT/HCPCS: 76536

== ENCOUNTER → 2024-02-28 | Outpatient (CLI) | payer OTHER, SELFPAY ==
--- NOTE | 2024-02-28 09:19 | RAD_ITS ---
STUDY: X-RAY - ESOPHAGUS (BARIUM SWALLOW) WITH FLUOROSCOPY REASON FOR EXAM: Female, 63 years old. Dysphasia. TECHNIQUE: 17 view(s) of the esophagus were obtained following swallowing of barium. FLUOROSCOPY TIME (if supplied): (34 seconds) minutes/seconds. 6.51 mGy. COMPARISON: None. FINDINGS: There is no demonstrated esophageal foreign body. There is no demonstrated stricture or mucosal abnormality. Normal gastroesophageal junction, without a demonstrated hiatal hernia. The patient ingested a 12 mm tablet of barium. The tablet is trapped at the gastroesophageal junction. Normal visualized aortic arch and descending thoracic aorta. Normal visualized pulmonary parenchyma. Normal visualized osseous structures of the thorax. RAD/Esophagus Dual Contrast IMPRESSION: The 12 mm tablet of barium is trapped at the gastroesophageal junction. Endoscopic correlation recommended. Electronically Signed: Aba Moralez MD at 9:49 EDT ,
== END | disposition home or self-care (01) ==
LOC: RAD 09:05
PROVIDERS: PCP Nurse Practitioner Family; Referring Provider Nurse Practitioner Family; Visit Provider Nurse Practitioner Family
DX: R13.10 Dysphagia, unspecified (principal)
CPT/HCPCS: 74221

== ENCOUNTER → 2024-03-24 | Outpatient (CLI) | payer OTHER, SELFPAY ==
--- NOTE | 2024-03-24 07:07 | BI_ITS ---
MAMMOGRAPHY - UNILATERAL SCREENING: RIGHT BREAST REASON FOR EXAM: Female, 63 years old. Routine annual screening examination (unilateral). PERTINENT HISTORY: Personal history of breast cancer. Prior left mastectomy with a TRAM flap reconstructive surgery. Right breast reduction. TECHNIQUE: Digital unilateral breast jaimee (3D mammographic acquisition) in the CC and MLO projections. 2-D mediolateral oblique (MLO) and craniocaudad (CC) views of both breasts were obtained. CAD: Full Field Digital Mammography with Computer Added Detection was performed. COMPARISON: Comparison is made with prior study dated March 23, 2023 and March 15, 2020. FINDINGS: Breast Composition: There are scattered areas of fibroglandular density. There are no dominant masses or suspicious calcifications. No other significant abnormalities are identified. There has been no significant change since the prior study. BI/SCREEN MAMM (CAD) W/JAIMEE UNI R IMPRESSION: Stable unilateral screening mammogram. Yearly follow-up mammogram recommended. (A) ASSESSMENT CATEGORY: BIRADS Category 1: Negative. A letter regarding these results will be sent to the patient by the facility within 30 days. Approximately 10% of breast cancers are not detected by mammography. A normal mammogram should not delay biopsy of a clinically suspicious abnormality. [id number] Electronically Signed: Aba Moralez MD at 8:23 EDT ,
== END | disposition home or self-care (01) ==
LOC: OPBI 07:07
PROVIDERS: PCP Nurse Practitioner Family; Referring Provider Obstetrics & Gynecology; Visit Provider Obstetrics & Gynecology
DX: Z12.31 Encounter for screening mammogram for malignant neoplasm of breast (principal); Z85.3 Personal history of malignant neoplasm of breast; Z90.12 Acquired absence of left breast and nipple
CPT/HCPCS: 77063; 77067

== ENCOUNTER → 2024-05-08 | Outpatient (CLI) | payer OTHER, SELFPAY ==
[2024-05-08 18:24] LABS: T4 Free Direct 0.86 ng/dL (0.76-1.46)
[2024-05-11 16:07] LABS: Thyroid Stim Immunoglob <0.10 IU/L (0.00-0.55)
== END | disposition home or self-care (01) ==
PROVIDERS: PCP Nurse Practitioner Family; Referring Provider Nurse Practitioner Family; Visit Provider Nurse Practitioner Family
DX: R79.89 Other specified abnormal findings of blood chemistry (principal); E06.3 Autoimmune thyroiditis
CPT/HCPCS: 36415; 84439; 84443; 84445

== ENCOUNTER → 2024-10-23 | Outpatient (CLI) | payer OTHER, SELFPAY ==
--- NOTE | 2024-10-23 13:41 | SP.MBSS_ITS ---
Modified Barium Swallow Patient Information Study Date: 10/23/24 Study Time: 13:00 Direct Billable Minutes: 73 Total Minutes procedure & reportin Diagnosis: Dysphagia R13.10; GERD K21.9 Referring Physician: Deven Noel Reason for Referral: Objectively assess swallow function, assess risk for aspiration, and determine recommendations for least restrictive diet textures and compensatory strategies to improve safety of swallow. 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 Pt follows w/ tool and cutter grinder, Dr. Noel, for management of dysphagia and GERD. Currently, she is not having difficulty swallowing foods/drinks; however, pills have been feeling in her throat. Dr. Noel referred her for MBSS. Current Diet Ordered: Regular textures / Thin liquids Dentition: WNL and Natural Teeth Mental Status: WNL Respiratory Status: Oxygenating on Room Air Penetration-Aspiration Scale Penetration-Aspiration Scale: OBJECTIVE ASSESSMENT OF SWALLOW FUNCTION (QUANTITATIVE ? PER TRIAL): PENETRATION / ASPIRATION SCALE (CHANEL): 1 = does not enter airway 2 = enters airway/above vocal folds/ejected 3 = enters airway/above vocal folds/not ejected 4 = enters airway/contacts vocal folds/ejected 5 = enters airway/contacts vocal folds/not ejected 6 = enters airway/below vocal folds/ejected 7 = enters airway/below vocal folds/not ejected despite effort 8 = enters airway/below vocal folds/no effort VIDEOFLOROSCOPIC SCALE SCORE (CHANEL): Grade I = aspiration of material that has penetrated into the laryngeal vestibule, intact cough reflex Grade II = aspiration < 10 % of the bolus, intact cough reflex Grade III = aspiration of < 10 % of the bolus, reduced cough reflex or aspiration of > 10 % of the bolus, intact cough reflex Grade IV = aspiration of > 10 % of the bolus, reduced cough reflex Penetration-Aspiration Scale Score Thin Liquid via teaspoon: Result: 1= does not enter airway Thin Liquid via teaspoon Trial 2: Result: 1= does not enter airway Thin Liquid via small single sip: cup: Result: 1= does not enter airway [place] Thick Liquid via small single sip: cup: Result: 1= does not enter airway Pudding via teaspoon: Result: 1= does not enter airway Comment: Esophageal screen - Retention in the middle and lower esophagus. Thin Liquid via single sip: straw: Result: 1= does not enter airway Comment: Esophageal screen - Liquid wash mostly cleared retention of pudding in the lower esophagus. Persistent mild retention of barium in middle esophagus. Minimal retention of barium liquid in the lower esophagus w/ min retrograde flow. 1/2 Cookie: Result: 1= does not enter airway Comment: Esophageal screen - Minimal retention in upper esophagus, mild retention in middle esophagus, majority of cookie remained in lower esophagus. Liquid wash was provided, which mostly cleared cookie residues from the esophagus; however, pt had remaining retention of thin liquid barium in the lower esophagus w retrograde flow. Oral Phase Labial Seal: No Labial Escape Tongue Control During Bolus Hold: Posterior escape of less than half of bolus Bolus Preparation/Mastication: Timely and efficient chewing and mashing Bolus Transport/Lingual Motion: Brisk tongue motion Oral Residue: Trace residue lining oral structures Pharyngeal Phase Initiation of Pharyngeal Swallow: Bolus head at posterior laryngeal surgace of epiglottis Soft Palate Elevation: Trace column of contrast/air between soft palate and ph aryngeal wall Laryngeal Elevation: Comp. Superior move thyroid cart w/comp. apprx arytenoid cart-epig pet Anterior Hyoid Excursion: Partial anterior movement Epiglottic Movement: Complete inversion Laryngeal Vestibule Closure at Height of Swallow: Complete; no air/contrast in laryngeal vestibule Pharyngeal Stripping Wave: Present - complete Pharyngoesophageal Segment Opening: Complete distension and complete duration; no obstruction of flow Tongue Base Retraction: Narrow column of contrast between tongue base & post. pharyngeal wall (cookie) Pharyngeal Residue: Collection of residue within or on pharyngeal structures (cookie) Esophageal Phase Esophageal Clearance: Esophageal retention w/ retrograde flow below pharyngoesophageal seg. Treatment Strategies Effects of treatment strategies attemped:: Liquid wash = effective. Diagnosis/Impression Diagnosis: Oropharyngeal swallow function grossly WNL; Esophageal dysphagia R13.14 Impression: Oropharyngeal swallow function is grossly WNL. The patient did have mildly decreased TB retraction and minimal pharyngeal residue w/ cookie; however, this minimal residue fully cleared w/ liquid wash. Otherwise, trace pharyngeal residues. The patient has good airway closure during the swallow and demonstrated no laryngeal penetration or aspiration during the MBSS. Noteworthy, pt sensed pharyngeal retention after consuming barium tablet w/ water. Barium tablet had fully cleared through the pharynx and esophagus. AIRPORT OPERATIONS COORDINATOR suspects pt may be experiencing globus sensation. The esophageal phase is marked by... -Retention of pudding and cookie in the middle and lower esophagus, as well as minimal retention of cookie in the upper esophagus. Liquid washes mostly cleared esophageal retention; however, mild retention of liquids remained in the lower esophagus w/ min retrograde flow. Recommendations Diet: Regular Textures and Thin Liquids Compensatory Strategies: Small Bites, Small Sips, Slow Rate, Alternate bites/solids and sips/liquids, Sitting upright and Remain sitting upright for 30 minutes after PO intake Recommend Repeat Modified Barium Swallow: No Need for Skilled Speech Therapy Services: No Recommended Referrals: GI Consult (Continue to follow w/ Dr. Noel for management of dysphagia) Education Completed: 1. Described result of evaluation. Status Active ST Patient: Active Contact Information [facility] Speech Therapy:: Shannon Erickson M.A. [facility] OPERATIONS COORDINATOR? Speech-Language Pathologist?? [facility] [address] [place] [address]? [email or web address]?? [phone]
== END | disposition home or self-care (01) ==
PROVIDERS: PCP Family Medicine; Referring Provider Internal Medicine Gastroenterology; Visit Provider Internal Medicine Gastroenterology
DX: R13.10 Dysphagia, unspecified (principal)
CPT/HCPCS: 74230; 92611

== ENCOUNTER → 2024-10-24 | Outpatient (CLI) | payer OTHER, SELFPAY ==
[2024-10-24 17:58] LABS: Free T3 2.4 pg/mL (2.18-3.98); T4 Free Direct 0.86 ng/dL (0.76-1.46)
== END | disposition home or self-care (01) ==
PROVIDERS: PCP Family Medicine; Referring Provider Family Medicine; Visit Provider Family Medicine
DX: E04.9 Nontoxic goiter, unspecified (principal)
CPT/HCPCS: 36415; 84439; 84443; 84481

== ENCOUNTER → 2025-01-15 | Outpatient (CLI) | payer OTHER, SELFPAY ==
[2025-01-15 11:37] LABS: Cholesterol 150 mg/dL (<=200); High Density Lipoprotein 54 mg/dL; Low Density Lipoprotein Calc. 85 mg/dL; Triglycerides 56 mg/dL; Very Low Density Lipoprotein 11 mg/dL (5-40)
[2025-01-15 16:22] LABS: Hemoglobin A1c 5.7 % (<=5.6)
== END | disposition home or self-care (01) ==
LOC: MTLAB 08:48
PROVIDERS: PCP Family Medicine; Referring Provider Nurse Practitioner Family; Visit Provider Nurse Practitioner Family
DX: Z13.1 Encounter for screening for diabetes mellitus (principal); Z13.220 Encounter for screening for lipoid disorders
CPT/HCPCS: 36415; 80061; 83036

== ENCOUNTER → 2025-01-16 | Outpatient (CLI) | payer OTHER, SELFPAY ==
--- NOTE | 2025-01-16 14:30 | BI_ITS ---
PROCEDURE: DIAG MAMM W/CAD, UNILAT; RT BRST UNILAT JAIMEE ADD-ON; BREAST LIMITED UNILATERAL REASON FOR EXAM: F, Age 64 y/o , BREAST PAIN, LUMP OF RIGHT BREAST; LUMP; RIGHT BREAST PAIN Personal history of left breast cancer in 2012 status post mastectomy with trans flap reconstruction. COMPARISON: 03/24/2024, 03/23/2023. TECHNIQUE: Right diagnostic digital breast tomosynthesis with 2D and 3D images. Computer aided detection. Also, targeted right breast ultrasound was performed. FINDINGS: TISSUE DENSITY: There are scattered areas of fibroglandular density. MAMMOGRAM: The patient presents with area of concern in the lateral right breast. There are no suspicious mammographic findings in the lateral right breast. There are no suspicious masses, grouped calcifications or architectural distortions. ULTRASOUND: Targeted right breast ultrasound performed as the area of interest in the lateral right breast. The ultrasound demonstrates no suspicious masses, abnormal cystic elements or other suspicious findings in the lateral right breast. BI/Rt Brst Unilat Jaimee Add-On IMPRESSION: There are no suspicious mammographic or sonographic findings in the area of pat ient's concern in the lateral right breast. There is no evidence of malignancy in the right breast. BI-RADS 1: NEGATIVE. RECOMMEND ANNUAL MAMMOGRAPHIC SCREENING. Reading Location: [id number]
--- NOTE | 2025-01-16 14:30 | BI_ITS ---
PROCEDURE: DIAG MAMM W/CAD, UNILAT; RT BRST UNILAT JAIMEE ADD-ON; BREAST LIMITED UNILATERAL REASON FOR EXAM: F, Age 64 y/o , BREAST PAIN, LUMP OF RIGHT BREAST; LUMP; RIGHT BREAST PAIN Personal history of left breast cancer in 2012 status post mastectomy with trans flap reconstruction. COMPARISON: 03/24/2024, 03/23/2023. TECHNIQUE: Right diagnostic digital breast tomosynthesis with 2D and 3D images. Computer aided detection. Also, targeted right breast ultrasound was performed. FINDINGS: TISSUE DENSITY: There are scattered areas of fibroglandular density. MAMMOGRAM: The patient presents with area of concern in the lateral right breast. There are no suspicious mammographic findings in the lateral right breast. There are no suspicious masses, grouped calcifications or architectural distortions. ULTRASOUND: Targeted right breast ultrasound performed as the area of interest in the lateral right breast. The ultrasound demonstrates no suspicious masses, abnormal cystic elements or other suspicious findings in the lateral right breast. BI/DIAG MAMM W/CAD, UNILAT IMPRESSION: There are no suspicious mammographic or sonographic findings in the area of pat ient's concern in the lateral right breast. There is no evidence of malignancy in the right breast. BI-RADS 1: NEGATIVE. RECOMMEND ANNUAL MAMMOGRAPHIC SCREENING. Reading Location: [id number]
--- NOTE | 2025-01-16 15:40 | US_ITS ---
PROCEDURE: DIAG MAMM W/CAD, UNILAT; RT BRST UNILAT JAIMEE ADD-ON; BREAST LIMITED UNILATERAL REASON FOR EXAM: F, Age 64 y/o , BREAST PAIN, LUMP OF RIGHT BREAST; LUMP; RIGHT BREAST PAIN Personal history of left breast cancer in 2011 status post mastectomy with trans flap reconstruction. COMPARISON: 03/24/2024, 03/23/2023. TECHNIQUE: Right diagnostic digital breast tomosynthesis with 2D and 3D images. Computer aided detection. Also, targeted right breast ultrasound was performed. FINDINGS: TISSUE DENSITY: There are scattered areas of fibroglandular density. MAMMOGRAM: The patient presents with area of concern in the lateral right breast. There are no suspicious mammographic findings in the lateral right breast. There are no suspicious masses, grouped calcifications or architectural distortions. ULTRASOUND: Targeted right breast ultrasound performed as the area of interest in the lateral right breast. The ultrasound demonstrates no suspicious masses, abnormal cystic elements or other suspicious findings in the lateral right breast. US/Breast Limited Unilateral IMPRESSION: There are no suspicious mammographic or sonographic findings in the area of pat ient's concern in the lateral right breast. There is no evidence of malignancy in the right breast. BI-RADS 1: NEGATIVE. RECOMMEND ANNUAL MAMMOGRAPHIC SCREENING. Reading Location: [id number]
== END | disposition home or self-care (01) ==
LOC: OPBI 14:25
PROVIDERS: PCP Family Medicine; Referring Provider Obstetrics & Gynecology; Visit Provider Obstetrics & Gynecology
DX: N63.10 Unspecified lump in the right breast, unspecified quadrant (principal); N64.4 Mastodynia
CPT/HCPCS: 76642; 77061; 77065; G0279

== ENCOUNTER → 2025-04-06 | Outpatient (CLI) | payer OTHER, SELFPAY ==
--- NOTE | 2025-04-06 16:56 | US_ITS ---
PROCEDURE: THYROID 04/06/2025 REASON FOR EXAM: NONTOXIC GOITER, UNSPECIFIED TECHNIQUE: THYROID COMPARISON: Thyroid ultrasound on 01/31/2024 FINDINGS: Right thyroid lobe size: 3.9 x 1.1 x 1.4 cm Left thyroid lobe size: 3.5 x 1.0 x 1.2 cm Isthmus: 0.1 cm Background parenchymal echotexture is heterogeneous Nodules: 1. Lobe: Left, Location: Mid, Size: 0.6 x 0.3 x 0.4 cm, Stability: New Composition: Solid or almost completely solid (+2) Echogenicity: Very hypoechoic (+3) Margin: Smooth (+0) Shape: Wider than tall (+0) Echogenic Foci: None (+0) TI-RADS: 4 US/Thyroid IMPRESSION: 1. Solitary nodule in the left thyroid lobe, which does not require follow-up or FNA per ACR TI-RADS guidelines. 2. Heterogeneous thyroid parenchyma, suggestive of underlying thyroid disease. Reading Location: [id number]
== END | disposition home or self-care (01) ==
PROVIDERS: PCP Family Medicine; Referring Provider Family Medicine; Visit Provider Family Medicine
DX: E04.9 Nontoxic goiter, unspecified (principal)
CPT/HCPCS: 76536

== ENCOUNTER → 2025-05-01 | Outpatient (CLI) | payer OTHER, SELFPAY ==
--- OUTSIDE RECORDS SUMMARY | 2025-05-01 09:20 | XMS RPT_ITS | CCD ---
Author Organization [facility] Care Team Providers Care Global Project Manager Name Role Phone Deanne Alvarez PA-C Unavailable Tiana Raymundo MD Unavailable [phone] Cheryl Rivera MD Unavailable [phone] Julieth Townsend Unavailable Julieth Townsend Unavailable Kinsey Darling Unavailable Unavailab Leda Quesada Unavailable Unavailable Leda Navarro Unavailable Unavailable Kinsey Darling Unavailable Unavailab Kinsey Bradley Unavailable Unavailab Deanne Staples PA-C Unavailable [phone] EBONIE NAVARRO Admitting Unavailable [place] Consulting Unavailable EBONIE NAVARRO Attending Unavailable EBONIE NAVARRO Primary Care Unavailable PROVIDER, UNKNOWN Consulting Unavailable PROVIDER, UNKNOWN Consulting Unavailable Dr. Tiana Raymundo Primary Care Provider [phone] Dr. Tiana Raymundo Referring Provider [phone] Dr. Med Cole Attending Provider [phone] Dr. Cheryl Rivera Attending Provider [phone] GAEL Demarco Attending Provider Unavailab Dr. Tiana Do Primary Care Provider [phone] Dr. Tiana Raymundo Referring Provider [phone] GAEL Demarco Attending Provider Unavailab Dr. Tiana Do Primary Care Provider [phone] Dr. Tiana Raymundo Referring Provider [phone] Dr. Med Cole Attending Provider Tiana Raymundo MD Primary Care Provider [phone] Breanne, Dr. Montiel Primary Care Provider [phone] Breanne, Dr. Montiel Referring Provider [phone] Douglas MARKETING TECHNOLOGIST, MARKETING TECHNOLOGIST-C Steve Attending Provider [phone] Breanne, Dr. Montiel Primary Care Provider [phone] Breanne, Dr. Montiel Referring Provider [phone] Dr. Cheryl Rivera Attending Provider [phone] Breanne, Dr. Montiel Primary Care Provider [phone] Breanne, Dr. Montiel Referring Provider [phone] Dr. Cheryl Rivera Attending Provider [phone] Galen PIERSON, Dr. Kenney Primary Care Provider Galen PIERSON, Dr. Kenney Referring Provider Sadie ALRKIN, Dr. Carvalho Attending Provider Sadie LARKIN, Dr. Carvalho Referring Provider Galen PIERSON, Dr. Kenney Attending Provider Referred, Self Attending Provider Unavailable Referred, Self Referring Provider Unavailable Nicole PIERSON, Dr. Luna Attending Provider Yajaira MARKETING TECHNOLOGIST-CMeme Attending Provider Claritza MARKETING TECHNOLOGIST-C, Latricia Attending Provider Claritza MARKETING TECHNOLOGIST-C, Latricia Referring Provider Dr. Cheryl Rivera MD Referring Provider Galen PIERSON, Dr. Kenney Primary Care Provider Galen PIERSON, Dr. Kenney Referring Provider Galen PIERSON, Dr. Kenney Attending Provider Pablito Aaron Primary Care Unavailable Galen, Pablito Referring Unavailable Aaron, Pablito Attending Unavailable Aaron, Pablito Primary Care Unavailable Aaron, Pablito Attending Unavailable Aaron, Pablito Referring Unavailable Friend, Deven Attending Unavailable Aaron, Pablito Primary Care Unavailable Referred, Self Referring Unavailable Referred, Self Attending Unavailable Aaron, Pablito Primary Care Unavailable Marcanthony, Cheryl Referring Unavailable Marcanthony, Cheryl Attending Unavailable Aaron, Pablito Primary Care Unavailable Friend, Deven Attending Unavailable Aaron, Pablito Primary Care Unavailable Aaron, Pablito Referring Unavailable Cheryl Rivera Attending Unavailable Aaron, Pablito Primary Care Unavailable Aaron, Pablito Referring Unavailable Aaron, Pablito Primary Care Unavailable Aaron, Pablito Referring Unavailable Meme Gates Attending Unavailable Steph, Ben Attending Unavailable Aaron, Pablito Primary Care Unavailable Aaron, Pablito Referring Unavailable Claritza MARKETING TECHNOLOGIST, Latricia Referring Unavailable Yuriy Flores Attending Unavailable Claritza MARKETING TECHNOLOGIST, Latricia Primary Care Unavailable Claritza MARKETING TECHNOLOGIST, Latricia Primary Care Unavailable Claritza MARKETING TECHNOLOGIST, Latricia Referring Unavailable Krystal Huynh Attending Unavailable Claritza MARKETING TECHNOLOGIST, Latricia Referring Unavailable Claritza MARKETING TECHNOLOGIST, Latricia Attending Unavailable Aaron, Pablito Primary Care Unavailable Claritza MARKETING TECHNOLOGIST, Latricia Referring Unavailable Claritza MARKETING TECHNOLOGIST, Latricia Attending Unavailable Claritza MARKETING TECHNOLOGIST, Latricia Primary Care Unavailable Aaron, Pablito Primary Care Unavailable Aaron, Pablito Attending Unavailable Aaron, Pablito Referring Unavailable Friend, Deven Referring Unavailable Friend, Deven Attending Unavailable Aaron, Pablito Primary Care Unavailable Allergies Allergy Classification Reported Allergen(s) Allergy Type Date of Onset Reaction(s) Facility (14 sources) EQL ADHESIVE 1X5YDS drug allergy 7 [facility] Work Phone: (2 sources) Adhesive Tape Propensity to adverse reactions to substance 2 Rash [facility] Medications Current Medications Medication Drug Class(es) Dates Sig (Normalized) Sig (Original) ascorbic acid 500 mg oral capsule (11 sources) Vitamin C Start: 01-03-2023 take 1 capsule by mouth twice daily Ascorbic Acid (Vitamin C) 500 mg capsule Active 500 mg PO TWICE A DAY January 03, 2023 12:00am take 1 tablet by mouth once aminta y Ascorbic Acid (VITAMIN C) 100 mg tablet Take 100 mg by mouth once daily. 0 Active Comment on above: Take 100 mg by mouth once daily. B-Complex With Vitamin C (5 sources) Start: 11-30-2023 take 1 tablet by mouth once daily B-Complex With Vitamin C Active 1 TABLET PO DAILY November 30, 2023 1:00am Start: 11-30-2023 take 1 tablet by hayden th once daily B-Complex With Vitamin C Active 1 TABLET PO DAILY November 30, 2023 12:00am B-Complex With Vitamin C tablet (3 sources) Start: 11-30-2023 B-Complex With Vitamin C tablet Active 1 {tbl} PO DAILY November 30, 2023 1:00am calcium carbonate 1500 mg oral tablet (9 sources) Start: 01-03-2023 take 1 tablet by mouth twice daily Calcium Carbonate (Calcium 600) 600 mg calcium (1,500 mg) tablet Active 600 mg PO TWICE A DAY January 03, 2023 12:00am cholecalciferol 0.05 mg oral capsule (9 sources) Vitamin D Start: 01-03-2023 take 1 capsule by mouth once daily Cholecalciferol (Vitamin D3) 50 mcg (2,000 unit) capsule Active 50 ug PO DAILY January 03, 2023 12:00am magnesium oxide 500 mg oral tablet (8 sources) Start: 11-30-2023 take 1 tablet by mouth once daily Magnesium Oxide 500 mg magnesium tablet Active 500 mg PO DAILY November 30, 2023 1:00am zinc acetate 50 mg oral capsule (9 sources) Start: 01-03-2023 take 1 capsule by mouth once daily Zinc Acetate 50 mg (zinc) capsule Active 50 mg PO DAILY January 03, 2023 12:00am Completed/Discontinued Medications Medication Drug Class(es) Dates Sig (Normalized) Sig (Original) amoxicillin 875 mg / clavulanate 125 mg oral tablet (15 sources) Penicillin-class Antibacterial Start: 10-19-2017 End: 10-29-2017 Amoxicillin-Pot Clavulanate (Augmentin) 875-125 mg tablet Discontinued 1 {tbl} PO Q12H 20 10 October 19, 2017 1:00am October 28, 2017 1:00am October 29, 2017 1:06am Start: 09-10-2017 AUGMENTIN 875- 125 MG TABS 1 tab Q12 AMOXICILLIN- POT CLAVULANATE [id number] Tiana Raymundo MD aspirin 81 mg delayed release oral tablet (12 sources) Platelet Aggregation Inhibitor, Nonsteroidal Anti-inflammatory Drug Start: 12-02-2019 End: 12-14-2020 Aspirin (Adult Low Dose Aspirin) 81 mg tablet,delayed release (DR/EC) Discontinued 81 mg PO DAILY December 02, 2019 1:00am December 14, 2020 9:16am Calcium Carbonate / vitamin D3 (2 sources) CALCIUM CARBONATE/VITAMIN D3 (CALCIUM 500 WITH VITAMIN D ORAL) Calcium 600mg/ Vitamin D3 500mg: Take one(1) tablet two(2) times daily. . 0 Active Comment on above: Calcium 600mg/ Vitam in D3 500mg: Take one(1) tablet two(2) times daily. . ciprofloxacin 500 mg oral tablet (12 sources) Quinolone Antimicrobial Start: 09-27-2018 End: 11-21-2018 take 1 tablet by mouth twice daily Ciprofloxacin Hcl 500 mg tablet Discontinued 500 mg PO TWICE A DAY September 27, 2018 1:00am November 21, 2018 6:19pm clobetasol propionate 0.0005 mg/mg topical ointment (20 sources) Corticosteroid Start: 10-11-2021 End: 01-02-2025 Clobetasol 0.05 % ointment Discontinued 1 g TOPICAL AT BEDTIME December 14, 2023 11:15am January 02, 2025 6:01pm apply thin layer; massage gently into affected area nightly x 6 weeks then 1-2x weekly Start: 10-11-2021 End: 12-14-2023 Clobetasol Discontinued 1 GM TOPICAL AT BEDTIME November 24, 2022 4:00pm December 14, 2023 11:15am apply thin layer; massage gently into affected area nightly x 6 weeks then 1-2x weekly Start: 11-03-2020 End: 11-24-2022 Clobetasol 0.05 % cream Disc ontinued 1 NMA TOPICAL .COMPLEX as needed for itching November 03, 2020 1:00am November 24, 2022 3:36pm 1 applic topical PRN; Start: 11-03-2020 End: 11-24-2022 Clobetasol Discontinued 1 AP PLIC TOPICAL .COMPLEX November 03, 2020 1:00am November 24, 2022 3:36pm 1 applic topical PRN; Start: 03-29-2020 End: 04-12-2020 Clobetasol 0.05 % cream Disc ontinued 1 NMA TOPICAL TWICE A DAY 15 March 29, 2020 12:00am April 11, 2020 12:00am April 12, 2020 12:02am Start: 10-01-2019 End: 12-02-2019 Clobetasol 0.05 % ointment D iscontinued 1 NMA TOPICAL AT BEDTIME October 01, 2019 1:00am December 02, 2019 9:24am apply thin layer; massage gently into affected area nightly x 6 weeks then 1-2x weekly cyclobenzaprine hydrochloride 10 mg oral tablet (15 sources) Muscle Relaxant Start: 06-13-2024 End: 06-18-2024 take 1 tablet by mouth three times daily as needed for muscle spasms Cyclobenzaprine 10 mg tablet Discontinued 10 mg PO THREE TIMES A DAY as needed for muscle spasm 03 03June 13, 2024 12:00am June 17, 2024 12:00am June 18, 2024 12:03am Start: 10-24-2021 End: 01-02-2022 take 1 tablet by mouth three times daily as needed for muscle spasms Cyclobenzaprine 5 mg tablet Discontinued 5 mg PO THREE TIMES A DAY as needed for muscle spasm October 24, 2021 1:00am January 02, 2022 8:29am ELDERBERRY FRUIT (2 sources) elderberry fruit (ELDERBERRY ORAL) Take by mouth once daily. 0 Active Comment on above: Take by mouth once d aily. Obwlcmoh-Xxivckffkpt-Zkp ro, Wh (CETAPHIL) cream (2 sources) Glycerin-Dimethi cone-Pe tro, Wh (CETAPHIL) cream Apply 1 application to affected area twice daily. 0 Active Comment on above: Apply 1 application to affected area twice daily. methylPREDNISolone 4 mg oral tablet (20 sources) Corticosteroid Start: 2023 End: 2023 take 1 tablet by mouth once Methylprednisolone (Medrol (Benito)) 4 mg tablets,dose pack Discontinued 4 mg PO per package directions 04 04June 13, 2024 12:00am June 18, 2024 12:00am June 19, 2024 12:04am Start: 10-17-2021 End: 10-24-2021 take 1 tablet by mouth once Methylprednisolone (Medrol (Benito)) 4 mg tablets,dose pack Discontinued 0 PO per package directions October 17, 2021 1:00am October 24, 2021 9:17am PO PER PKG DIR Start: 10-19-2017 End: 10-24-2017 take 1 tablet by mouth once Methylprednisolone (Medrol (Benito)) 4 mg tablets,dose pack Discontinued 4 mg PO per package directions 04 03October 19, 2017 1:00am October 23, 2017 1:00am October 24, 2017 1:05am MULTIPLE VITAMINS-MINERALS (1 source) Start: 06-14-2017 take 1 tablet by mouth once daily DAILY MULTIVITAMIN CAPS One tablet by mouth daily MULTIPLE VITAMINS-MINERALS [id number] Deanne Alvarez PA-C MULTIPLE VITAMINS-MINERALS (13 sources) Start: 06-14-2017 take 1 tablet by mouth once daily DAILY MULTIVITAMIN CAPS One tablet by mouth daily MULTIPLE VITAMINS-MINERALS [id number] Deanne Alvarez PA-C Start: 06-14-2017 take 1 tablet by hayden th once daily DAILY MULTIVITAMIN CAPS One tablet by mouth daily MULTIPLE VITAMINS-MINERALS [id number] Deanne Alvarez PA-C multivitamin capsule (9 sources) Start: 10-19-2017 End: 10-11-2021 take 1 capsule by mouth once daily in the morning multivitamin capsule Discontinued 1 CAP PO EVERY MORNING October 19, 2017 2:44pm October 11, 2021 2:02pm Start: 10-19-2017 End: 10-11-2021 take 1 capsule by mouth once daily in the morning multivitamin capsule Discontinued 1 CAP PO EVERY MORNING October 19, 2017 12:00am October 11, 2021 1:02pm Start: 10-19-2017 End: 10-11-2021 take 1 capsule by mouth once daily in the morning multivitamin capsule Discontinued 1 CAP PO EVERY MORNING October 19, 2017 1:00am October 11, 2021 2:02pm Multivitamin capsule (3 sources) Start: 10-19-2017 End: 10-11-2021 Multivitamin capsule Discontinued 1 NMA PO EVERY MORNING October 19, 2017 1:00am October 11, 2021 2:02pm nitrofurantoin, macrocrystals 100 mg oral capsule (12 sources) Nitrofuran Antibacterial Start: 09-04-2021 End: 10-11-2021 take 1 capsule by mouth twice daily at mealtime Nitrofurantoin Macrocrystal 100 mg capsule Discontinued 100 mg PO TWICE A DAY 14 September 04, 2021 1:00am October 11, 2021 2:02pm must administer with a meal/food nitrofurantoin, macrocrystals 25 mg / nitrofurantoin, monohydrate 75 mg oral capsule (20 sources) Nitrofuran Antibacterial Start: 11-24-2022 End: 12-01-2022 take 1 capsule by mouth every twelve hours at mealtime Nitrofurantoin Monohyd/M-Cryst (Macrobid) 100 mg capsule Discontinued 100 mg PO Q12H 14 November 24, 2022 1:00am November 30, 2022 1:00am December 01, 2022 1:05am administer with a meal/food; swallow whole; do not open, crush, dissolve , or chew Start: 10-11-2021 End: 10-18-2021 take 1 capsule by mouth every twelve hours at mealtime Nitrofurantoin Monohyd/M-Cryst (Macrobid) 100 mg capsule Discontinued 100 mg PO Q12H 14 October 11, 2021 1:00am October 17, 2021 1:00am October 18, 2021 1:01am administer with a meal/food; swallow whole; do not open, crush, dissolve , or chew Start: 07-06-2020 End: 07-13-2020 take 1 capsule by mouth every twelve hours at mealtime Nitrofurantoin Monohyd/M-Cryst 100 mg capsule Discontinued 1 NMA PO Q12H 14 July 06, 2020 12:00am July 12, 2020 12:00am July 13, 2020 12:02am administer with a meal/food; swallow whole; do not open, crush, dissolve , or chew predniSONE 10 mg oral tablet (20 sources) Start: 03-29-2020 End: 04-10-2020 Prednisone 10 mg tablet Discontinued 10 mg PO daily 30 March 29, 2020 12:00am April 09, 2020 12:00am April 10, 2020 12:02am Take 4 tabs once daily days 1-3 3 tabs once daily days 4-6 2 tabs once daily days 7-9 and 1 tab once daily days 10-12. RABEprazole sodium 20 mg delayed release oral tablet (9 sources) Proton Pump Inhibitor Start: 08-04-2024 End: 10-03-2024 take 1 tablet by mouth once daily as needed Rabeprazole 20 mg tablet,delayed release (DR/EC) Discontinued 20 mg PO daily as needed September 26, 2024 11:07am October 03, 2024 6:45pm Zinc (12 sources) Start: 12-02-2019 End: 10-11-2021 take 1 tablet by mouth once daily Zinc (Chelated Zinc) 50 mg tablet Discontinued 50 MG PO DAILY December 02, 2019 9:24am October 11, 2021 2:02pm Start: 12-02-2019 End: 10-11-2021 take 1 tablet by mouth once daily Zinc (Chelated Zinc) 50 mg tablet Discontinued 50 mg PO DAILY December 02, 2019 1:00am October 11, 2021 2:02pm Start: 12-02-2019 End: 10-11-2021 take 1 tablet by mouth once daily Zinc (Chelated Zinc) 50 mg tablet Discontinued 50 MG PO DAILY December 02, 2019 12:00am October 11, 2021 1:02pm Start: 12-02-2019 End: 10-11-2021 take 1 tablet by mouth once daily Zinc (Chelated Zinc) 50 mg tablet Discontinued 50 MG PO DAILY December 02, 2019 1:00am October 11, 2021 2:02pm Zinc Sulfate (2 sources) zinc sulfate (ZI NC-15 ORAL) Take by mouth. 0 Active Comment on above: Take by mouth. Problems Active Problems Problem Classification Problem Date Documented Da te Episodic/Chronic Allergic reactions (12 sources) Irritant contact dermatitis due to plant; Translations: [Irritant contact dermatitis due to plants, except food] 10-11-2021 Episodic Cancer of breast (15 sources) Malignant tumor of breast ; Translations: [Malignant neoplasm of unspecified site of unspecified female breast] Onset: 2 12-14-2011 Chronic Comment on above: 2011 left mastectomy . NO radiation or chemo. 5 years of tamoxifen. neg BRCA screen. Esophageal disorders (5 sources) Gastroesophageal reflux disease; Translations: [Gastro-esophageal reflux disease without esophagitis] 08-07-2024 Chronic Menopausal disorders (2 sources) Atrophic vaginitis; Translations: [Postmenopausal atrophic vaginitis] Onset: 2 03-01-2012 Chronic Nonmalignant breast conditions (20 sources) Breast lump; Translations: [Unspecified lump in the right breast, unspecified quadrant] Onset: Episodic Comment on above: likely post reductio n pain, recommend further evaluation due to history and persistence, recommend imaging and surgery consult after calabret[place] Other and unspecified benign neoplasm (1 source) Multiple benign melanocytic nevi ; Translations: [Melanocytic nevi, unspecified] Episodic Other and unspecified benign neoplasm (1 source) Senile angioma; Translations: [Hemangioma of skin and subcutaneous tissue] Episodic Other gastrointestinal disorders (8 sources) Abdominal bloating; Translations: [Abdominal distension (gaseous)] 11-30-2023 Episodic Comment on above: pelvic ultrasound Other gastrointestinal disorders (5 sources) Abdominal distension (gaseous); Translations: [Flatulence, eructation, and gas pain] 11-30-2023 Episodic Other gastrointestinal disorders (5 sources) Dysphagia; Translations: [Dysphagia, unspecified] 08-07-2024 Episodic Other skin disorders (16 sources) Lichen sclerosus et atrophicus; Translations: [Lichen sclerosus et atrophicus] Chronic Comment on above: clobetasol. Other skin disorders (10 sources) Skin lesion; Translations: [Disorder of the skin and subcutaneous tissue, unspecified] 07-25-2022 Episodic Comment on above: Hidrocystoma Other skin disorders (1 source) Disorder of the skin and subcutaneous tissue, unspecified; Translations: [Unspecified disorder of skin and subcutaneous tissue] Episodic Other skin disorders (1 source) Trichilemmal cyst; Translations: [Pilar cyst] Episodic Other skin disorders (1 source) Milia; Translations: [Epidermal cyst] Episodic Other skin disorders (1 source) Seborrheic keratosis; Translations: [Other seborrheic keratosis] Episodic Other upper respiratory disease (6 sources) Nasal discharge; Translations: [Other specified disorders of nose and nasal sinuses] 01-03-2025 Episodic Other upper respiratory disease (6 sources) Nasal congestion; Translations: [Nasal congestion] 01-03-2025 Episodic Other upper respiratory infections (20 sources) Acute sinusitis; Translations: [Acute sinusitis, unspecified] Onset: 7 09-10-2017 Episodic Spondylosis; intervertebral disc disorders; other back problems (13 sources) Sciatica; Translations: [Sciatica, right side] Episodic Thyroid disorders (10 sources) Subclinical hypothyroidism; Translations: [Other specified hypothyroidism] Onset: 5 03-13-2023 Chronic Unclassified (19 sources) Encounter for screening for lipoid disorders; Translations: [Encounter for screening for diseases of the blood and blood-forming organs and certain disorders involving the immune mechanism] Onset: 2 08-02-2017 Episodic Unclassified (4 sources) Gynecologic examination ; Translations: [Encounter for gynecological examination (general) (routine) without abnormal findings] Onset: 7 08-23-2017 Unclassified (11 sources) Screening - health check; Translations: [Encounter for general adult medical examination without abnormal findings] Onset: 7 08-02-2017 Unclassified (13 sources) Breast reconstruction with transverse rectus abdominis myocutaneous flap; Translations: [Acquired absence of unspecified breast and nipple] Onset: 7 06-19-2017 Unclassified (8 sources) Procedure carried out on subject; Translations: [Encounter for screening for lipoid disorders] Onset: 7 08-02-2017 Unclassified (3 sources) N64.4 - Mastodynia,N63.10 - Unspecified lump in the right breast, unspecified quadrant Urinary tract infections (20 sources) Urinary tract infectious disease; Translations: [Urinary tract infection, site not specified] Episodic Comment on above: 2 this year, 1 scrip t given to keep on hand for travel if another UTI recommend urogyn evaluation. Past or Other Problems Problem Classification Problem Date Documented Da te Episodic/Chronic Cancer of breast (2 sources) History of malignant neoplasm of breast; Translations: [Personal history of malignant neoplasm of breast] Onset: 03-22-2015 03-22-2015 Episodic Cardiac dysrhythmias (2 sources) Tachycardia; Translations: [Tachycardia, unspecified] Onset: 09-10-2017 09-10-2017 Episodic Complications of surgical procedures or medical care (2 sources) Skin reaction to suture material; Translations: [Disruption of wound, unspecified, initial encounter] Onset: 04-28-2014 04-28-2014 Episodic Mycoses (2 sources) Steroid-modified tinea infection; Translations: [Other specified superficial mycoses] Onset: 10-22-2015 10-22-2015 Episodic Other gastrointestinal disorders (1 source) Dysphagia, unspecified; Translations: [Dysphagia, unspecified] Onset: 11-12-2024 Episodic Sprains and strains (4 sources) Strain of right trapezius muscle; Translations: [Strain of muscle, fascia and tendon at neck level, initial encounter] Onset: 06-13-2024 06-13-2024 Episodic Unclassified (1 source) Acquired absence of unspecified breast and nipple; Translations: [Acquired absence of unspecified breast and nipple] Onset: 06-14-2017 06-19-2017 Episodic Results Test Name Value Interpretation Reference Range Facility Thyroidon 04-06-2025 Thyroid [facility] [address] [place] [id number] Thyroid MR#: [id number] Acct: [id number] Name: LEAH VASQUEZ Rep #: [id number] : 1960 F 64 From: Jordan Farah MD PCP: Dr. Pablito Aaron MD Status: REG CLI Study: Thyroid Date of Exam: 04/06/25 Exam# [id number] Ordering Dr: Pablito Aaron MD PROCEDURE: THYROID 04/06/2025 REASON FOR EXAM: NONTOXIC GOITER, UNSPECIFIED TECHNIQUE: THYROID COMPARISON: Thyroid ultrasound on 01/31/2024 FINDINGS: Right thyroid lobe size: 3.9 x 1.1 x 1.4 cm Left thyroid lobe size: 3.5 x 1.0 x 1.2 cm Isthmus: 0.1 cm Background parenchymal echotexture is heterogeneous Nodules: 1. Lobe: Left, Location: Mid, Size: 0.6 x 0.3 x 0.4 cm, Stability: New Composition: Solid or almost completely solid (+2) Echogenicity: Very hypoechoic (+3) Margin: Smooth (+0) Shape: Wider than tall (+0) Echogenic Foci: None (+0) TI-RADS: 4 US/Thyroid IMPRESSION: 1. Solitary nodule in the left thyroid lobe, which does not require follow-up or FNA per ACR TI- RADS guidelines. 2. Heterogeneous thyroid parenchyma, suggestive of underlying thyroid disease. Reading Location: [facility] CC: Dr. Pablito Aaron MD Vocational Instructor: Signed Normal [facility] Breast Limited Unilateralon 01-16-2025 Breast Limited Unilateral [facility] [address] [place] [address] Breast Limited Unilateral MR#: [id number] Acct: [id number] Name: LEAH VASQUEZ Rep #: [id number] : 1960 F 64 From: May Bond MD PCP: Dr. Pablito Aaron MD Status: REG CLI Study: Breast Limited Unilateral Date of Exam: Exam# [id number] Ordering Dr: Cheryl Rivera PROCEDURE: DIAG MAMM W/CAD, UNILAT; RT BRST UNILAT TAVON ADD-ON; BREAST LIMITED UNILATERAL REASON FOR EXAM: F, Age 64 y/o , BREAST PAIN, LUMP OF RIGHT BREAST; LUMP; RIGHT BREAST PAIN Personal history of left breast cancer in 2011 status post mastectomy with trans flap reconstruction. COMPARISON: 03/24/2024, 03/23/2023. TECHNIQUE: Right diagnostic digital breast tomosynthesis with 2D and 3D images. Computer aided detection. Also, targeted right breast ultrasound was performed. FINDINGS: TISSUE DENSITY: There are scattered areas of fibroglandular density. MAMMOGRAM: The patient presents with area of concern in the lateral right breast. There are no suspicious mammographic findings in the lateral right breast. There are no suspicious masses, grouped calcifications or architectural distortions. ULTRASOUND: Targeted right breast ultrasound performed as the area of interest in the lateral right breast. The ultrasound demonstrates no suspicious masses, abnormal cystic elements or other suspicious findings in the lateral right breast. US/Breast Limited Unilateral IMPRESSION: There are no suspicious mammographic or sonographic findings in the area of patient's concern in the lateral right breast. There is no evidence of malignancy in the right breast. BI-RADS 1: NEGATIVE. RECOMMEND ANNUAL MAMMOGRAPHIC SCREENING. Reading Location: [id number] CC: Dr. Pablito Aaron MD; Dr. Cheryl Rivera MD Vocational Instructor: Signed Normal [facility] Breast imaging reportOrdered By: May Bond on 01-16-2025 Study report [facility] Imaging Services [address] [place], [place] [address] DIAG MAMM W/CAD, UNILAT MR#: [id number] Acct: [id number] Name: LEAH VASQUEZ Rep #: [id number] : 1960 F 64 From: Holli Bond MD PCP: Dr. Pablito Aaron MD Status: REG C LI Study:DIAG MAMM W/CAD, UNILAT Date of Exam: 01/16/25 Exam# [id number] Ordering Dr: Cheryl Chen MD PROCEDURE: DIAG MAMM W/CAD, UNILAT; RT BRST UNILAT TAVON ADD-ON; BREAST LIMITED UNILATERAL REASON FOR EXAM: F, Age 64 y/o , BREAST PAIN, LUMP OF RIGHT BREAST; LUMP; RIGHT BREAST PAIN Personal history of left breast cancer in 2011 status post mastectomy with transflap reconstruction. COMPARISON: 03/24/2024, 03/23/2023. TECHNIQUE: Right diagnostic digital breast tomosynthesis with 2D and 3D images. Computer aided detection. Also, targeted right breast ultrasound was performed. FINDINGS: TISSUE DENSITY: There are scattered areas of fibroglandular density. MAMMOGRAM: The patient presents with area of concern in the lateral right breast. There are no suspicious mammographic findings in the lateral right breast. There are no suspicious masses, grouped calcifications or architectural distortions. ULTRASOUND: Targeted right breast ultrasound performed as the area of interest in the lateral right breast. The ultrasound demonstrates no suspicious masses, abnormal cystic elements or other suspicious findings in the lateral right breast. BI/DIAG MAMM W/CAD, UNILAT IMPRESSION: There are no suspicious mammographic or sonographic findings in the area of patient's concern in the lateral right breast. There is no evidence of malignancy in the right breast. BI-RADS 1: NEGATIVE. RECOMMEND ANNUAL MAMMOGRAPHIC SCREENING. Reading Location: [facility] CC: Dr. Pablito Aaron MD; Dr. Cheryl Rivera MD ~ Vocational Instructor: Signed [facility] Study report [facility] Imaging Services [address] [place], [place] [id number] Rt Brst Unilat Tavon Add-On MR#: [id number] Acct: [id number] Name: LEAH VASQUEZ Rep #: [id number] : 1960 F 64 From: Holli Bond MD PCP: Dr. Pablito Aaron MD Status: REG C MARTHA Study:Rt Brst Unilat Tavon Add-On Date of Exam : 01/16/25 Exam# [id number] Ordering Dr: Cheryl Chen MD PROCEDURE: DIAG MAMM W/CAD, UNILAT; RT BRST UNILAT TAVON ADD-ON; BREAST LIMITED UNILATERAL REASON FOR EXAM: F, Age 64 y/o , BREAST PAIN, LUMP OF RIGHT BREAST; LUMP; RIGHT BREAST PAIN Personal history of left breast cancer in 2011 status post mastectomy with transflap reconstruction. COMPARISON: 03/24/2024, 03/23/2023. TECHNIQUE: Right diagnostic digital breast tomosynthesis with 2D and 3D images. Computer aided detection. Also, targeted right breast ultrasound was performed. FINDINGS: TISSUE DENSITY: There are scattered areas of fibroglandular density. MAMMOGRAM: The patient presents with area of concern in the lateral right breast. There are no suspicious mammographic findings in the lateral right breast. There are no suspicious masses, grouped calcifications or architectural distortions. ULTRASOUND: Targeted right breast ultrasound performed as the area of interest in the lateral right breast. The ultrasound demonstrates no suspicious masses, abnormal cystic elements or other suspicious findings in the lateral right breast. BI/Rt Brst Unilat Tavon Add-On IMPRESSION: There are no suspicious mammographic or sonographic findings in the area of patient's concern in the lateral right breast. There is no evidence of malignancy in the right breast. BI-RADS 1: NEGATIVE. RECOMMEND ANNUAL MAMMOGRAPHIC SCREENING. Reading Location: [facility] CC: Dr. Pablito Aaron MD; Dr. Cheryl Rivera MD ~ Vocational Instructor: Signed [facility] DIAG MAMM W/CAD, UNILATon DIAG MAMM W/CAD, UNILAT [facility] Imaging Services [address] [place] [address] DIAG MAMM W/CAD, UNILAT MR#: [id number] Acct: [id number] Name: LEAH VASQUEZ Rep #: [id number] : 1960 F 64 From: May Bond MD PCP: Dr. Pablito Aaron MD Status: REG CLI Study: DIAG MAMM W/CAD, UNILAT Date of Exam: 01/16/25 Exam# [id number] Ordering Dr: Cheryl Rivera PROCEDURE: DIAG MAMM W/CAD, UNILAT; RT BRST UNILAT TAVON ADD-ON; BREAST LIMITED UNILATERAL REASON FOR EXAM: F, Age 64 y/o , BREAST PAIN, LUMP OF RIGHT BREAST; LUMP; RIGHT BREAST PAIN Personal history of left breast cancer in 2011 status post mastectomy with trans flap reconstruction. COMPARISON: 03/24/2024, 03/23/2023. TECHNIQUE: Right diagnostic digital breast tomosynthesis with 2D and 3D images. Computer aided detection. Also, targeted right breast ultrasound was performed. FINDINGS: TISSUE DENSITY: There are scattered areas of fibroglandular density. MAMMOGRAM: The patient presents with area of concern in the lateral right breast. There are no suspicious mammographic findings in the lateral right breast. There are no suspicious masses, grouped calcifications or architectural distortions. ULTRASOUND: Targeted right breast ultrasound performed as the area of interest in the lateral right breast. The ultrasound demonstrates no suspicious masses, abnormal cystic elements or other suspicious findings in the lateral right breast. BI/DIAG MAMM W/CAD, UNILAT IMPRESSION: There are no suspicious mammographic or sonographic findings in the area of patient's concern in the lateral right breast. There is no evidence of malignancy in the right breast. BI-RADS 1: NEGATIVE. RECOMMEND ANNUAL MAMMOGRAPHIC SCREENING. Reading Location: [facility] CC: Dr. Pablito Aaron MD; Dr. Cheryl Rivera MD Vocational Instructor: Signed Normal [facility] Rt Brst Unilat Tavon Add-Onon 01-16-2025 Rt Brst Unilat Tavon Add-On [facility] Imaging Services [address] [place] [address] Rt Brst Unilat Tavon Add-On MR#: [id number] Acct: [id number] Name: LEAH VASQUEZ Rep #: [id number] : 1960 F 64 From: May Bond MD PCP: Dr. Pablito Aaron MD Status: REG CLI Study: Rt Brst Unilat Tavon Add-On Date of Exam: 01/16 Exam# [id number] Ordering Dr: Cheryl Rivera PROCEDURE: DIAG MAMM W/CAD, UNILAT; RT BRST UNILAT TAVON ADD-ON; BREAST LIMITED UNILATERAL REASON FOR EXAM: F, Age 64 y/o , BREAST PAIN, LUMP OF RIGHT BREAST; LUMP; RIGHT BREAST PAIN Personal history of left breast cancer in 2011 status post mastectomy with trans flap reconstruction. COMPARISON: 03/24/2024, 03/23/2023. TECHNIQUE: Right diagnostic digital breast tomosynthesis with 2D and 3D images. Computer aided detection. Also, targeted right breast ultrasound was performed. FINDINGS: TISSUE DENSITY: There are scattered areas of fibroglandular density. MAMMOGRAM: The patient presents with area of concern in the lateral right breast. There are no suspicious mammographic findings in the lateral right breast. There are no suspicious masses, grouped calcifications or architectural distortions. ULTRASOUND: Targeted right breast ultrasound performed as the area of interest in the lateral right breast. The ultrasound demonstrates no suspicious masses, abnormal cystic elements or other suspicious findings in the lateral right breast. BI/Rt Brst Unilat Tavon Add-On IMPRESSION: There are no suspicious mammographic or sonographic findings in the area of patient's concern in the lateral right breast. There is no evidence of malignancy in the right breast. BI-RADS 1: NEGATIVE. RECOMMEND ANNUAL MAMMOGRAPHIC SCREENING. Reading Location: [id number] CC: Dr. Pablito Aaron MD; Dr. Cheryl Rivera MD Vocational Instructor: Signed Normal [facility] Calculated very low density lipoprotein (VLDL) cholesterol measurementOrdered By: Latricia Jerry on 01-15-2025 Calculated very low density lipoprotein (VLDL) cholesterol measurement 11 mg/dL 5-40 [facility] VLDL Cholesterol 11 mg/dL 5-40 [facility] Hemoglobin A1con 01-15-2025 HbA1c (Bld) [Mass fraction] 5.7 % Normal <=5.6 [facility] Comment on above: Order Comment: Order Date: 11/19/24Order Info: [id number] - A1C Performed By: #### L 501.9985, L500.4100 ####[facility] [address] [facility], [address] Hemoglobin A1c percentageOrd ered By: Latricia Jerry on 01-15-2025 HbA1c (Bld) [Mass fraction] 5.7 % >5.7 [facility] LDL calc ser/plasOrdered By: Latricia Jerry on 01-15-2025 Cholesterol in LDL [Mass/Vol] 85 mg/dL [facility] Comment on above: Qbnsemnddz=050-344 m g/dL & Higher Wmcf=665 mg/dL or greater LDL Cholesterol, Calculated 85 mg/dL [facility] Comment on above: Ywkfvmnwof=624-109 m g/dL & Higher Lowl=122 mg/dL or greater Lipid Profileon 01-15-2025 CHOL:HDL 2.80 Normal [facility] Comment on above: Order Comment: Order Date: 11/19/24Order Info: [id number] - LIPID Performed By: #### L 501.9985, L500.4100 ####[facility] [address] [place], [address] Cholesterol [Mass/Vol] 150 mg/dL Normal <=200 [facility] Comment on above: Order Comment: Order Date: 11/19/24Order Info: [id number] - LIPID Result Comment: Chol esterol level, Desirable <200 mg/dL Borderline high cholesterol 200-239 mg/dL High cholesterol >=240 mg/dL Recommendations of the NCEP Adult Treatment Panel for the following risk-cutoff thresholds for the [place] population. Performed By: #### L 501.9985, L500.4100 ####[facility] [address] [place], [address] Cholesterol in HDL [Mass/Vol] 54 mg/dL Normal [facility] Comment on above: Order Comment: Order Date: 11/19/24Order Info: [id number] - LIPID Result Comment: Evelia onal Cholesterol Education Program (NCEP) guidelines: <40 mg/dL: Low HDL-cholesterol (major risk factor for CHD) >= 60 mg/dL: High HDL-cholesterol (negative risk factor for CHD) HDL-cholesterol is affected by a number of factors, e.g. smoking, exercise, hormones, sex and age. Performed By: #### L 501.9985, L500.4100 ####[facility] [address] [place], [address] Cholesterol in LDL [Mass/Vol] 85 mg/dL Normal [facility] Comment on above: Order Comment: Order Date: 11/19/24Order Info: [id number] - LIPID Result Comment: Bord ezbcpj=071-946 mg/dL Higher Fsgk=672 mg/dL or greater Performed By: #### L 501.9985, L500.4100 ####[facility] [address] [place], [address] Cholesterol in VLDL [Mass/Vol] 11 mg/dL Normal 5-40 [facility] Comment on above: Order Comment: Order Date: 11/19/24Order Info: [id number] - LIPID Performed By: #### L 501.9985, L500.4100 ####[facility] [address] [place], [address] Triglyceride [Mass/Vol] 56 mg/dL Normal [facility] Comment on above: Order Comment: Order Date: 11/19/24Order Info: [id number] - LIPID Result Comment: The drugs N-Acetylcysteine and Metamizole may falsely depress this assay. Normal range: <150 mg/dL Borderline High: 150-199 mg/dL High: 200-499 mg/dL Very High: >500 mg/dL Performed By: #### L 501.9985, L500.4100 ####[facility] [address] [place], [address] Screening total cholesterol/ high density lipoprotein (HDL) cholesterol ratioOrdered By: Latricia Jerry on 01-15-2025 Cholesterol.total/Ch olesterol in HDL [Mass ratio] 2.80 {ratio} [facility] Serum or plasma cholesterol in HDL measurement (mass/volume)Ordered By: Latricia Jerry on 01-15-2025 Cholesterol in HDL [Mass/Vol] 54 mg/dL >40 [facility] Comment on above: National Cholesterol Education Program (NCEP) guidelines:<40 mg/dL: Low HDL-cholesterol (major risk factor for CHD)>= 60 mg/dL: High HDL-cholesterol (negative risk factor for CHD)HDL-cholesterol is affected by a number of factors, e.g. smoking, exercise, hormones, sex and age. Serum or plasma cholesterol measurement (mass/volume)Ordered By: Latricia Jerry on 01-15-2025 Cholesterol [Mass/Vol] 150 mg/dL <201 [facility] Comment on above: Cholesterol level, D esirable <200 mg/dLBorderline high cholesterol 200-239 mg/dLHigh cholesterol >=240 mg/dLRecommendations of the NCEP Adult Treatment Panel for the following risk-cutoff thresholds for the [place] population. Triglycerides measurementOrd ered By: Latricia Jerry on 01-15-2025 Triglyceride [Mass/Vol] 56 mg/dL <199 [facility] Comment on above: The drugs N-Acetylcy steine and Metamizole may falsely depress this assay. Normal range: <150 mg/dLBorderline High: 150-199 mg/dLHigh: 200-499 mg/dLVery High: >500 mg/dL Urgent Care Visit Reporton 0 01-03-2025 Urgent Care Visit Report [facility] [address] , [address] [place], [place] [address] OFFICE VISIT Date of Service: 01/03/25 MR#: [id number] Acct: [id number] Name: LEAH VASQUEZ Rep #: [id number] : 1960 Provider: KEVEN Gates Age/Sex: 64/F Location: [facility] Status: Signed Intake Vital Signs 12/26/24 11:09 01/03/25 09:45 Height 5 ft 6 in Weight: 176 lb 2 oz BMI 28.4 BP 121/78 H 122/72 H Position Sitting Pulse 111 H Temp 98.5 F Temp Source Oral Pulse Oximetry (%) 96 Oxygen Delivery Method room air Intake Visit Reasons: cough Accompanied by: Self Allergies No Known Allergies Allergy (Verified 01/03/25 10:20) Medications ???Medication ???Instructions ???Recorded ???Confirmed ???Type ascorbic acid (vitamin C) 500 mg 500 mg PO BID 01/03/23 12/26/24 Hi story capsule calcium carbonate (Calcium 600) 600 mg PO BID 01/03/23 12/26/24 Hi story cholecalciferol (vitamin D3) 50 50 mcg PO DAILY 01/03/23 12/26/24 History mcg (2,000 unit) capsule zinc acetate 50 mg (zinc) capsule 50 mg PO DAILY 01/03/23 12/26/24 History B-complex with vitamin C 1 tab PO DAILY 11/30/23 12/26/24 H istory magnesium oxide 500 mg PO DAILY 11/30/23 12/26/24 History rabeprazole 20 mg tablet,delayed 20 mg PO QDAY 3 months #90 tabs 12/26/24 Rx release clobetasol 0.05 % topical ointment 1 g topical QHS #30 grams Rx Nurse's Note: 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 Patient states this has been going on for 5 days. Patient chest hurts from coughing. PFSH Medical History GERD (gastroesophageal reflux disease) Dysphagia Subclinical hypothyroidism Encounter for preventative adult health care examination Hx of headache Breast cancer Surgical History History of breast reconstruction H/O LEEP H/O mastectomy H/O elbow surgery Hx of section Family History Mother Cancer lyphoma Father Hypertension Cancer lung COPD (chronic obstructive pulmonary disease) Uncle Heart disease Grandmother Diabetes Social History number of children: 2 Smoking Status: Never smoker alcohol intake: never substance use type: does not use caffeine: Yes what type of physical activity do you participate in: none seatbelt use: always do you feel safe at home: Yes additional social history: Iv[place] 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 [facility] HPI Details: LEAH VASQUEZ, is a 64 F who presents to the office today for cold sx -sx started on Sunday -sx cough- hurts to cough- wet- sputum is clear -+ runny nose and congestion -no fever or chills, denies ST, ear pain -+ headache no facial pain -+ myalgias no sob -no hx of asthma, copd or smoking -tried so far NyQuil, Excedrin migraine, cough drops ROS Const Constitutional: Positive for other (ROS negative x6 except what was placed in HPI) Exam Const General: cooperative, comfortable and no acute distress Orientation: alert, awake and oriented x3 HENMT Head: normal to inspection and normocephalic Ears: hearing grossly normal bilaterally, external ears normal and TM's normal bilaterally Nose: external nose normal and other (+ congestion and rhinorrhea-moderate- no swelling or redness ) Face and sinus: normal facial exam, sinuses nontender and face symmetric Mouth: oral mucosae normal, lip normal, tongue normal, oropharynx normal and moist mucous membranes Throat: posterior oropharynx normal, tonsils normal, uvula midline and postnasal drainage Neck Neck: normal visual inspection, full ROM and no lymphadenopathy Resp Effort Inspection: normal respiratory effort, able to speak in complete sentences and symmetric chest movement Auscultation: Bilateral: Clear to Auscultation, Left: Clear to Auscultation and Right: Clear to Auscultation Cardio Rate: regular rate Rhythm: regular rhythm Heart Sounds: S1 normal and S2 normal GI Auscultation: normal bowel sounds Palpation: soft Skin General: no rashes or lesions noted and turgor normal Neuro General: patient alert, patient awake and patient oriented x3 Cognition: normal cognition Speech: speech normal Psych Appearance: grossly normal Mental Status: mental status grossly normal Attitude: cooperative Thought Process: normal Thought Content: normal Coding Level of Care Code Off vis,est,level 3 Diagnoses Viral URI with cough J06.9 Rhinorrhea J34.89 Nasal congestion R09.81 Assessment and Plan Assessment and Plan (1) Viral URI with cough: Status: Acute Plan: -Mucinex twice a day. Warm salt water gargles, warm tea with honey, increase fluids, yuly (more content not included)... Normal [facility] Pressure Controller Office Visit Reporton 12-26-2024 Pressure Controller Office Visit Report [facility] [address], [address] [place] [address] OFFICE VISIT Date of Service: 12/26/24 MR#: [id number] Acct: [id number] Name: LEAH VASQUEZ Rep #: [id number] : 1960 Provider: Dr. 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 Required: No Is patient in pain?: No Feel stressed/tense/nervous/an xious/difficulty sleeping: not at all Allergies No Known Allergies Allergy (Verified 12/26/24 11:10) Medications ???Medication ???Instructions ???Recorded ???Confirmed ???Type ascorbic acid (vitamin C) 500 mg 500 mg PO BID 01/03/23 12/26/24 Hi story capsule calcium carbonate (Calcium 600) 600 mg PO BID 01/03/23 12/26/24 Hi story cholecalciferol (vitamin D3) 50 50 mcg PO DAILY 01/03/23 12/26/24 History mcg (2,000 unit) capsule zinc acetate 50 mg (zinc) capsule 50 mg PO DAILY 01/03/23 12/26/24 History B-complex with vitamin C 1 tab PO DAILY 11/30/23 12/26/24 H istory magnesium oxide 500 mg PO DAILY 11/30/23 12/26/24 History clobetasol 0.05 % topical ointment 1 g topical QHS #30 grams 12/26/24 Rx rabeprazole 20 mg tablet,delayed 20 mg PO QDAY 3 months #90 tabs 12/26/24 Rx release Is last menstrual period known: No Post menopausal: Yes Patient : No : No PFSH Medical History GERD (gastroesophageal reflux disease) Dysphagia Subclinical hypothyroidism Encounter for preventative adult health care examination Hx of headache Breast cancer Surgical History History of breast reconstruction H/O LEEP H/O mastectomy H/O elbow surgery Hx of section Family History Mother Cancer lyphoma Father Hypertension Cancer lung COPD (chronic obstructive pulmonary disease) Uncle Heart disease Grandmother Diabetes Social History number of children: 2 Smoking Status: Never smoker alcohol intake: never substance use type: does not use caffeine: Yes what type of physical activity do you participate in: none seatbelt use: always do you feel safe at home: Yes additional social history: [employer] Techn[employer] 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 Date Name GA/Weeks Outcome Route Bth Weight Infant Gen Labor Lgth Anesthesia Del [facility] Provider FOB Unknown 1982 Porsche Unknown 1986 Jose Luis HPI Encounter for routine gynecological examination Details: LEAH VASQUEZ is a 64 year old who presents for annual exam. Last PAP: 11/24/2022 - normal History of abnormal PAP: no severe Last mammogram: 03/24/2024 - normal History of abnormal mammogram: yes CA 2011 Colon cancer screening: last year Other preventative health care screenings: PCP [place] - PCP does routine labs Female Reproductive History Menopausal Symptoms: No hot flashes, No night sweats, No difficulty concentrating and No change in libido ROS Const Constitutional: Reports as per HPI and weight gain; Denies fatigue, increased appetite, poor appetite, night sweats or weight loss Cardio Card: Denies chest pain Resp Resp: Denies cough or dyspnea GI GI: Reports as per HPI and bloating; Denies abdominal pain, constipation, nausea or vomiting : Reports as per HPI and other; Denies difficulty voiding, dysuria, hematuria, hot flashes, nipple discharge, pelvic pain, prolapse symptoms, urinary frequency, urinary incontinence, urinary urgency, vaginal discharge, vaginal dryness, vaginal odor or vaginal pruritus Skin Skin/Breast: Reports changing lesions (right tenderness over denisty of lower breast) and breast pain (change in sensation); Denies breast mass, breast skin changes or nipple discharge Psych Psych: Denies anxiety, change in libido, depression or difficulty concentrating Exam Const General: cooperative, healthy appearing, comfortable, no acute distress, well developed and well groomed HENPA Head: normal to inspection and normocephalic Ears: hearing grossly normal bilaterally and external ears normal Nose: external nose normal Face and sinus: normal facial exam Neck Neck: normal visual inspection, full ROM and no lymphadenopathy Thyroid: thyroid normal Chest Chest palpation inspection: normal inspection of the chest (more content not included)... Normal [facility] Direct serum free thyroxine (FT4) measurementOrdered By: Pablito Aaron on 10-24-2024 Free T4 [Mass/Vol] 0.86 ng/dL 0.76-1.46 [facility] Free T3on 10-24-2024 Free T3 [Mass/Vol] 2.4 pg/mL Normal 2.18-3.98 [facility] Comment on above: Order Comment: N Performed By: #### L 506.0400, L501.9520, L501.14630 #### [facility] [address] [place], [address] Free [id number] By: Pablito argueta on 10-24-2024 Free Triiodothyronine (T3) pg/dL 2.4 pg/mL 2.18-3.98 [facility] T4 Free Directon 10-24-2024 T4 FREE DIRECT 0.86 ng/dL Normal 0.76-1.46 [facility] Comment on above: Order Comment: N Performed By: #### L 506.0400, L501.9520, L501.28133 #### [facility] [address] [facility] [place], [address] TSH QnOrdered By: Pablito alexandre on 10-24-2024 Thyroid Stimulating Hormone (TSH) 5.910 uIU/mL High 0.358-3.740 [facility] Thyroid Stim Hormone (TSH)on 10-24-2024 TSH 5.910 uIU/mL High 0.358-3.740 [facility] Comment on above: Order Comment: N Performed By: #### L 506.0400, L501.9520, L501.17507 #### [facility] [address] [facility] [address] [place], [place], [address] Modified Barium Swallow Stud yon 10-23-2024 Modified Barium Swallow Study [facility] Speech Pathology [address] [place] [address] Modified Barium Swallow Study MR#: [id number] Acct: [id number] Name: LEAH VASQUEZ Rep #: [id number] : 1960 64 From: Shannon Erickson M.A., [facility] UTILIZATION MANAGEMENT [facility] Modified Barium Swallow Patient Information Study Date: 10/23/24 Study Time: 13:00 Direct Billable Minutes: 73 Total Minutes procedure reportin Diagnosis: Dysphagia R13.10; GERD K21.9 Referring Physician: Deven Noel Reason for Referral: Objectively assess swallow function, assess risk for aspiration, and determine recommendations for least restrictive diet textures and compensatory strategies to improve safety of swallow. 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 Pt follows w/ radio station manager, Dr. Noel, for management of dysphagia and GERD. Currently, she is not having difficulty swallowing foods/drinks; however, pills have been feeling in her throat. Dr. Noel referred her for MBSS. Current Diet Ordered: Regular textures / Thin liquids Dentition: WNL and Natural Teeth Mental Status: WNL Respiratory Status: Oxygenating on Room Air Penetration-Aspiration Scale Penetration-Aspiration Scale: OBJECTIVE ASSESSMENT OF SWALLOW FUNCTION (QUANTITATIVE ??? PER TRIAL): PENETRATION / ASPIRATION SCALE (CHANEL): 1 = does not enter airway 2 = enters airway/above vocal folds/ejected 3 = enters airway/above vocal folds/not ejected 4 = enters airway/contacts vocal folds/ejected 5 = enters airway/contacts vocal folds/not ejected 6 = enters airway/below vocal folds/ejected 7 = enters airway/below vocal folds/not ejected despite effort 8 = enters airway/below vocal folds/no effort VIDEOFLOROSCOPIC SCALE SCORE (CHANEL): Grade I = aspiration of material that has penetrated into the laryngeal vestibule, intact cough reflex Grade II = aspiration < 10 % of the bolus, intact cough reflex Grade III = aspiration of < 10 % of the bolus, reduced cough reflex or aspiration of > 10 % of the bolus, intact cough reflex Grade IV = aspiration of > 10 % of the bolus, reduced cough reflex Penetration-Aspiration Scale Score Thin Liquid via teaspoon: Result: 1= does not enter airway Thin Liquid via teaspoon Trial 2: Result: 1= does not enter airway Thin Liquid via small single sip: cup: Result: 1= does not enter airway [place] Thick Liquid via small single sip: cup: Result: 1= does not enter airway Pudding via teaspoon: Result: 1= does not enter airway Comment: Esophageal screen - Retention in the middle and lower esophagus. Thin Liquid via single sip: straw: Result: 1= does not enter airway Comment: Esophageal screen - Liquid wash mostly cleared retention of pudding in the lower esophagus. Persistent mild retention of barium in middle esophagus. Minimal retention of barium liquid in the lower esophagus w/ min retrograde flow. 1/2 Cookie: Result: 1= does not enter airway Comment: Esophageal screen - Minimal retention in upper esophagus, mild retention in middle esophagus, majority of cookie remained in lower esophagus. Liquid wash was provided, which mostly cleared cookie residues from the esophagus; however, pt had remaining retention of thin liquid barium in the lower esophagus w retrograde flow. Oral Phase Labial Seal: No Labial Escape Tongue Control During Bolus Hold: Posterior escape of less than half of bolus Bolus Preparation/Mastication: Timely and efficient chewing and mashing Bolus Transport/Lingual Motion: Brisk tongue motion Oral Residue: Trace residue lining oral structures Pharyngeal Phase Initiation of Pharyngeal Swallow: Bolus head at posterior laryngeal surgace of epiglottis Soft Palate Elevation: Trace column of contrast/air between soft palate and pharyngeal wall Laryngeal Elevation: Comp. Superior move thyroid cart w/comp. apprx arytenoid cart-epig pet Anterior Hyoid Excursion: Partial anterior movement Epiglottic Movement: Complete inversion Laryngeal Vestibule Closure at Height of Swallow: Complete; no air/contrast in laryngeal vestibule Pharyngeal Stripping Wave: Present - complete Pharyngoesophageal Segment Opening: Complete distension and complete duration; no obstruction of flow Tongue Base Retraction: Narrow column of contrast between tongue base post. pharyngeal wall (cookie) Pharyngeal Residue: Collection of residue within or on pharyngeal structures (cookie) Esophageal Phase Esophageal Clearance: Esophageal retention w/ retrograde flow below pharyngoesophageal seg. Treatment Strategies Effects of treatment strategies attemped:: Liquid wash = effective. Diagnosis/Impression Diagnosis: Oropharyngeal swallow function grossly WNL; Esophageal dysphagia R13.14 Impression: Oropharyngeal swallow function is gross (more content not included)... Normal [facility] Gastroenterology Visit Repor ton 09-26-2024 Gastroenterology Visit Report [facility] [address] [place] [address] OFFICE VISIT Date of Service: 09/26/24 MR#: [id number] Acct: [id number] Name: LEAH VASQUEZ Rep #: [id number] : 1960 Provider: Deven Noel DO Age/Sex: 64/F [place] [facility] [place]: [place] Intake Vital Signs 11/30/23 13:48 Height 5 ft 6 in Intake Visit Reasons: Test Result Allergies No Known Allergies Allergy (Verified 08/07/24 07:46) Medications ???Medication ???Instructions ???Recorded ???Confirmed ???Type ascorbic acid (vitamin C) 500 mg 500 mg PO BID 01/03/23 09/26/24 History capsule calcium carbonate (Calcium 600) 600 mg PO BID 01/03/23 09/26/24 History cholecalciferol (vitamin D3) 50 50 mcg PO DAILY 01/03/23 09/26/24 History mcg (2,000 unit) capsule zinc acetate 50 mg (zinc) capsule 50 mg PO DAILY 01/03/23 09/26/24 History B-complex with vitamin C 1 tab PO DAILY 11/30/23 09/26/24 History magnesium oxide 500 mg PO DAILY 11/30/23 09/26/24 History clobetasol 0.05 % topical ointment 1 g topical QHS #30 grams 12/14/23 09/26/24 Rx rabeprazole 20 mg tablet,delayed 20 mg PO QDAY PRN 09/26/24 09/26/24 History release PFSH Medical History (Updated 08/07/24 @ 08:27 by GAEL Khan) GERD (gastroesophageal reflux disease) Dysphagia Subclinical hypothyroidism Encounter for preventative adult health care examination Hx of headache Breast cancer Surgical History History of breast reconstruction H/O LEEP H/O mastectomy H/O elbow surgery Hx of section Family History Mother Cancer lyphoma Father Hypertension Cancer lung COPD (chronic obstructive pulmonary disease) Uncle Heart disease Grandmother Diabetes Social History (Updated 11/30/23 @ 13:52 by Marsha Nguyen) Smoking Status: Never smoker alcohol intake: never substance use type: does not use caffeine: Yes what type of physical activity do you participate in: none seatbelt use: always do you feel safe at home: Yes additional social history: [employer] 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 Barium Swallow X-Ray 02.28.24 The 12 mm tablet of barium is trapped at the gastroesophageal junction. Endoscopic correlation recommended. EGD w/ dilation with Dr Whitley 04.29.24 Small fixed hiatal hernia. No definitive stricture noted. Biopsy with no pathologic changes. *BGI established 08.07.24 About five months ago pt developed difficulty swallowing her pills with feelings of it getting stuck in her esophagus. She had an esophagram which showed the capsule getting stuck at the gastroesophageal junction. She underwent EGD in April 2024 with dilation although no stricture was appreciated during the procedure. She has had no improvements in her swallowing since then. OV 09.26.24 pt reports that she is here to discuss whether or not it is necessary to have and EGD w/ dilation again since she just recently had it done and reported it was not effective Pt reports that she does not have difficulty swallowing foods or liquids, she just feels like pills are getting stuck in her throat. Pt reports she has high thyroid levels and wonders if this could be causing the difficulty with pills. ROS Const Constitutional: No fatigue, fever(s) or weight change ENT ENT: No difficulty swallowing Gastro GI: No abdominal pain, belching, bloating, change in bowel habits, change in stool character, coffee ground emesis, constipation, cramping, diarrhea, heartburn, difficulty swallowing, feeling full early, excessive flatus, incontinent of stools, Vomiting blood/hematemesis, Blood in stool, loose stools, Black,tarry stools, nausea/dyspepsia, pain with swallowing, vomiting or other Musc Musculoskeletal: No joint pain Skin Skin: No yellowing of the eye or itchy eyes Psych Psychiatric: No anxiety and No depression Endo Endocrine: No fatigue or weight change Aller/Imm Allergy/Immunologic: No itchy eyes Steven/Lymp Hematologic/Lymphatic: No easy bleeding or easy bruising Exam Const General: cooperative and comfortable Nutritional Appearance: average body habitus and well nourished GI Inspection: normal to inspection Palpation: no hepatosplenomegaly Skin General: no rashes or lesions noted Neuro General: patient alert Psych Affect: normal affect Assessment and Plan Assessment and Plan (1) Dysphagia: Status: Acute Plan: This is a new pt here today for establishment with [facility]. She has been having issues with swallowing her pills for 5 months now. She had an esophagram which showed the tablet getting stuck at GEJ. SHe underwent EGD with dilation in April 2024, w (more content not included)... Normal [facility] Gastroenterology Visit Repor ton 08-07-2024 Gastroenterology Visit Report [facility] [address] [place] [address] OFFICE VISIT Date of Service: 08/07/24 MR#: [id number] Acct: [id number] Name: LEAH VASQUEZ Rep #: [id number] : 1960 Provider: GAEL Khan Age/Sex: 63/F [place] [facility] [place] Status: Signed Intake Vital Signs 11/30/23 13:48 Height 5 ft 6 in Intake Visit Reasons: EST CARE Chief Complaint: dysphagia to pills [employer] Member Required: No Accompanied by: Self Allergies No Known Allergies Allergy (Verified 08/07/24 07:46) Medications ???Medication ???Instructions ???Recorded ???Confirmed ???Type ascorbic acid (vitamin C) 500 mg 500 mg PO BID 01/03/23 08/07/24 History capsule calcium carbonate (Calcium 600) 600 mg PO BID 01/03/23 08/07/24 History cholecalciferol (vitamin D3) 50 50 mcg PO DAILY 01/03/23 08/07/24 History mcg (2,000 unit) capsule zinc acetate 50 mg (zinc) capsule 50 mg PO DAILY 01/03/23 08/07/24 History B-complex with vitamin C 1 tab PO DAILY 11/30/23 08/07/24 History magnesium oxide 500 mg PO DAILY 11/30/23 08/07/24 History clobetasol 0.05 % topical ointment 1 g topical QHS #30 grams 12/14/23 08/07/24 Rx rabeprazole 20 mg tablet,delayed 20 mg PO QDAY 08/04/24 08/04/24 History release Have you fallen in the past year?: No Nurse's Note: Dr. Fletcher stretched her esophagus April 29, 2024 and it didn't help at all. Barium swallow in February of this year. [facility] Medical History (Updated 08/07/24 @ 08:27 by GAEL Khan) GERD (gastroesophageal reflux disease) Dysphagia Subclinical hypothyroidism Encounter for preventative adult health care examination Hx of headache Breast cancer Surgical History History of breast reconstruction H/O LEEP H/O mastectomy H/O elbow surgery Hx of section Family History Mother Cancer lyphoma Father Hypertension Cancer lung COPD (chronic obstructive pulmonary disease) Uncle Heart disease Grandmother Diabetes Social History (Updated 11/30/23 @ 13:52 by Marsha Nguyen) Smoking Status: Never smoker alcohol intake: never substance use type: does not use caffeine: Yes what type of physical activity do you participate in: none seatbelt use: always do you feel safe at home: Yes additional social history: [employer] 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 About five months ago pt developed difficulty swallowing her pills with feelings of it getting stuck in her esophagus. She had an esophagram which showed the capsule getting stuck at the gastroesophageal junction. She underwent EGD in April 2024 with dilation although no stricture was appreciated during the procedure. She has had no improvements in her swallowing since then. EGD w/ dilation 7.6.24; Small fixed hiatal hernia. No definitive stricture noted. Biopsy with no pathologic changes. ROS Const Constitutional: No anorexia, fatigue, fever(s), weight change or sleep problems Eyes Eyes: No change in vision ENT ENT: Positive for difficulty swallowing; No abnormal hearing, mouth lesions, tongue swelling or throat swelling Resp Respiratory: No cough or shortness of breath Cardio Cardiology: No chest pain at rest, chest pain with exertion, shortness of breath or dyspnea on exertion Gastro GI: Positive for difficulty swallowing Genitourinary-Female: No difficulty urinating or burning urination Musc Musculoskeletal: No joint pain, joint swelling, muscle weakness or decreased muscle mass Skin Skin: No hair loss in leg, yellowing of the eye, itchy eyes, rash, skin ulcer or skin swelling Neuro Neurology: No abnormal hearing, abnormal movements, confusion, unsteady gait/balance or memory loss Psych Psychiatric: No anxiety, No confusion and No memory loss Endo Endocrine: No fatigue or weight change Aller/Imm Allergy/Immunologic: No itchy eyes, throat swelling or tongue swelling Steven/Lymp Hematologic/Lymphatic: No easy bleeding, easy bruising or enlarged lymph nodes Exam Const General: cooperative and comfortable Nutritional Appearance: average body habitus and well nourished [facility] Head: normal to inspection Ears: hearing grossly normal bilaterally Nose: external nose normal Face and sinus: normal facial exam Eyes General: appearance normal, both eyes and all related structures Neck Neck: normal visual inspection Chest Chest palpation inspection: normal inspection of the chest Resp Effort Inspection: normal respiratory effort GI Inspection: normal to inspection Palpation: no hepatosplenomegaly Skin General: no rashes or lesions not (more content not included)... Normal [facility] Urgent Care Visit Reporton 0 06-13-2024 Urgent Care Visit Report [facility] [address] , [address] [place] [address] OFFICE VISIT Date of Service: 06/13/24 MR#: [id number] Acct: [id number] Name: LEAH VASQUEZ Rep #: [id number] : 1960 Provider: GAEL Bhagat Age/Sex: 63/F Location[place] [facility] [place] Status: Signed Intake Vital Signs 11/30/23 13:48 06/13/24 12:59 Height 5 ft 6 in BP 118/76 Blood Pressure Location Lt brachial Position Sitting Respiration 12 Pulse 112 H Pulse Source Monitor Temp 97.8 F Temp Source Temporal Pulse Oximetry (%) 98 Oxygen Delivery Method room air Intake Visit Reasons: NECK SHOULDER PAIN Chief Complaint: Right-sided neck and shoulder pain Allergies No Known Allergies Allergy (Verified 06/13/24 13:00) PFSH Medical History Breast cancer Encounter for preventative adult health care examination Hx of headache Subclinical hypothyroidism Surgical History H/O elbow surgery H/O LEEP H/O mastectomy History of breast reconstruction Hx of section Family History Mother Cancer lyphoma Father Hypertension Cancer lung COPD (chronic obstructive pulmonary disease) Uncle Heart disease Grandmother Diabetes Social History (Updated 11/30/23 @ 13:52 by Marsha Nguyen) Smoking Status: Never smoker alcohol intake: never substance use type: does not use caffeine: Yes what type of physical activity do you participate in: none seatbelt use: always do you feel safe at home: Yes additional social history: [employer] 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 Patient states she awoke 1 morning about 1 month ago with right- sided neck discomfort and states that now travels down to her right upper arm at times. She does state trying multiple home remedies including heat, ice and a TENS unit along with ibuprofen and Tylenol with no relief. Patient denies any previous injuries to the neck with no known incident that could have caused this pain other than sleeping on her neck wrong 1 month ago. She denies numbness, tingling or loss of range of motion. No other associated symptoms or alleviating/aggravating factors. ROS Const Constitutional: No other (6 system ROS completed with pertinent findings in the HPI otherwise normal.) Exam Const General: cooperative and healthy appearing [facility] Head: normocephalic and atraumatic Ears: hearing grossly normal bilaterally Nose: external nose normal Face and sinus: normal facial exam and face symmetric Mouth: oral mucosae normal Throat: posterior oropharynx normal Musc Cervical Spine: pain with cervical ROM and cervical ROM abnormal; No step off deformity Skin General: no rashes or lesions noted Neuro General: patient alert and CN's II-XI intact bilaterally Psych Appearance: grossly normal Mental Status: mental status grossly normal Coding Level of Care Code Off vis,new,level 3 Diagnoses Strain of cervical portion of right trapezius muscle S16.1XXA Assessment and Plan Assessment and Plan (1) Strain of cervical portion of right trapezius muscle: Status: Acute Orders: Referrals PT Referral S16.1XXA - Strain of muscle, fascia and tendon at neck level, initial encounter Medications: New methylprednisolone (Medrol ([place])) 4 mg PO PER PKG DIR 21 tabs 0RF 6 days cyclobenzaprine 10 mg PO TID PRN 20 tabs 0RF muscle spasm 5 days Plan Medrol Dosepak and cyclobenzaprine as prescribed today. Patient also given referral to PT. Encouraged to get plenty of rest, drink lots of clear liquids, and use Tylenol or Ibuprofen (unless contraindicated) for comfort. Patient also educated on other symptomatic management techniques. To be seen in 7-10 days if no improvement; sooner if worsening of symptoms. Patient advised of potential red flags and when appropriate to report to the ED. Patient verbalized understanding and agreement with all the above. 06/13/24 1423 Date Yuriy MAYO Cosignyong Signature: Date (if applicable) CC: Normal [facility] Thyroid Stim Immunoglobon THY STIM IMMUNO <0.10 Normal 0.00-0.55 [facility] Comment on above: Result Comment: Perf ormed at: BN - [facility] [address] [id number] Refrigerator Car Icer: Lonnie Thorpe MD, Phone: [phone] Performed By: #### L [id number] #### [facility] [address] [place], [address] T4 Free Directon 05-08-2024 T4 FREE DIRECT 0.86 ng/dL Normal 0.76-1.46 [facility] Comment on above: Order Comment: Order Date: 02/05/24 Order Info: 3016-3 - TSH Order Info: 3024-7 - T4F Performed By: #### L [id number], [id number] #### [facility] [address] [place], [address] Thyroid Stim Hormone (TSH)on 05-08-2024 TSH 5.60 uIU/mL High 0.358-3.74 [facility] Comment on above: Order Comment: Order Date: 02/05/24 Order Info: [id number] - TSH Order Info: [id number] - T4F Performed By: #### L [id number], [id number] #### [facility] [address] [place], [address] Absolute lymphocyte countOrd ered By: Latricia Jerry on 01-25-2024 Lymphocytes Auto (Unsp spec) [#/Vol] 2.32 10*3/uL 0.83-4.51 [facility] Automated lymphocyte count a s percentage of total leukocytesOrdered By: Latricia Jerry on 01-25-2024 Lymphocytes/100 WBC Auto (Unsp spec) 42.8 % 19-41 [facility] Basophil percentageOrdered B y: Latricia Jerry on 01-25-2024 Basophils/100 WBC (Bld) 1.1 % 0-1 [facility] Eosinophils/100 WBC (Bld) 4.8 % 0-5 [facility] Hemoglobin (Bld) [Mass/Vol] 12.1 g/dL 12.0-15.0 [facility] Monocytes/100 WBC (Bld) 11.1 % 0-10 [facility] Neutrophils (Bld) [#/Vol] 2.2 10*3/uL 2.0-7.7 [facility] Neutrophils/100 WBC (Bld) 40.0 % 47-70 [facility] WBC (Bld) [#/Vol] 5.4 10*3/uL 4.4-11.0 [facility] Determination of erythrocyte mean corpuscular volume (MCV)Ordered By: Latricia Jerry on 01-25-2024 MCV (RBC) [Entitic vol] 91.0 fL 81-99 [facility] Erythrocyte distribution wid th ratioOrdered By: [facility] on 01-25-2024 Erythrocyte distribution width (RBC) [Ratio] 12.5 % 11.6-14.6 [facility] Erythrocyte distribution wid th standard deviationOrdered By: [facility] on 01-25-2024 Erythrocyte distribution width (RBC) [Entitic vol] 41.3 fL 35.1-43.9 [facility] Hematocrit Auto (Bld) [Volum e fraction]Ordered By: Latriciasvetlana Jerry on 01-25-2024 Hematocrit (Bld) [Volume fraction] 37.6 % 37-47 [facility] Immature granulocytes/100 WB C Auto (Bld)Ordered By: Latriciasvetlana Jerry on 01-25-2024 Immature granulocytes/100 WBC (Bld) 0.200 % 0.0-0.9 [facility] Comment on above: IG% - Immature Granu locytes (promyelocytes, myelocytes and metamyelocytes) > 1% indicates that a LEFT SHIFT is Present. Laboratory - Hematology and Cell countsOrdered By: Latriciasvetlana Jerry on 01-25-2024 MCH (RBC) [Entitic mass] 29.3 pg 27.0-32.0 [facility] MCHC (RBC) [Mass/Vol] 32.2 g/dL 32-36 [facility] Nucleated RBC/100 WBC (Bld) [Ratio] 0 % 0-5 [facility] Platelet mean volume (Bld) [Entitic vol] 10.7 fL 6.2-12.0 [facility] Platelets (Bld) [#/Vol] 291 10*3/uL 150-450 [facility] No Panel InformationOrdered By: Latricia Jerry on 01-25-2024 Free Triiodothyronine (T3) pg/dL 2.4 pg/mL 2.18-3.98 [facility] Thyroglobulin Antibody < 1.0 IU/mL 0.0-0.9 [facility] Comment on above: Thyroglobulin Antibo dy measured by Jasper CoulterMethodologyIt should be noted that the presence of thyroglobulinantibodies may not be pathogenic nor diagnostic, especiallyat very low levels. The assay marine tower operator has found thatfour percent of individuals without evidence of thyroiddisease or autoimmunity will have positive TgAb levels upto 4 IU/mL. Thyroglobulin Level 10.4 ng/mL 1.5-38.5 [facility] Comment on above: According to the [facility] [employer],the reference interval for Thyroglobulin (TG) should berelated to euthyroid patients and not for patients whounderwent thyroidectomy. TG reference intervals for thesepatients depend on the residual mass of the thyroid tissueleft after surgery. Establishing a post-operative baselineis recommended. The assay limit of quantitation is 0.1ng/mLThyroglobulin measured by Jasper [place] ImmunometricAssay RBC Auto (Bld) [#/Vol]Ordere d By: Latricia Jerry on 01-25-2024 RBC (Bld) [#/Vol] 4.13 10*6/uL 4.2-5.4 [facility] Serum or plasma thyroid stim ulating hormone (TSH) measurement (units/volume)Ordered By: Latricia Jerry on 01-25-2024 TSH Qn 4.88 uIU/mL 0.358-3.74 [facility] Serum or plasma thyroperoxid ase antibody assay (units/volume)Ordered By: Latricia Jerry on 01-25-2024 TPO Ab Qn 62 [IU]/mL 0-34 [facility] Comment on above: Performed at: [address] [id number] Director: Lonnie Thorpe MD, Phone: [phone] at: - [facility] [id number] [place], [place] [id number] Director: Dejan Velazquez PhD, Phone: [phone] Thin prep Papanicolaou smear with manual screeningOrdered By: Latricia Jerry on 01-25-2024 Thin prep Papanicolaou smear with manual screening 0.89 ng/dL 0.76-1.46 [facility] Thyroid stimulating immunogl obulins detectionOrdered By: Latricia Jerry on 01-25-2024 Thyroid stimulating immunoglobulins Ql (S) <0.10 IU/L 0.00-0.55 [facility] Absolute lymphocyte countOrd ered By: Tiff López on 01-15-2024 Lymphocytes Auto (Unsp spec) [#/Vol] 2.12 10*3/uL 0.83-4.51 [facility] Automated lymphocyte count a s percentage of total leukocytesOrdered By: Tiff López on 01-15-2024 Lymphocytes/100 WBC Auto (Unsp spec) 46.7 % 19-41 [facility] Basophil percentageOrdered B y: Tiff López on 01-15-2024 Basophils/100 WBC (Bld) 1.1 % 0-1 [facility] Bilirubin [Mass/Vol] 0.40 mg/dL 0.20-1.00 [facility] Comment on above: For patients on eltr ombopag therapy, use of Dimension [place] TBIL is not recommended. Chloride [Moles/Vol] 106 mmol/L 98-107 [facility] Cholesterol [Mass/Vol] 175 mg/dL <200 [facility] Comment on above: <200 mg/dL Desirable 200-240 mg/dL Borderline >240 mg/dL High Risk Eosinophils/100 WBC (Bld) 5.5 % 0-5 [facility] Glucose [Mass/Vol] 87 mg/dL 74-106 [facility] Hemoglobin (Bld) [Mass/Vol] 13.5 g/dL 12.0-15.0 [facility] Monocytes/100 WBC (Bld) 11.7 % 0-10 [facility] Neutrophils (Bld) [#/Vol] 1.6 10*3/uL 2.0-7.7 [facility] Neutrophils/100 WBC (Bld) 35.0 % 47-70 [facility] Potassium [Moles/Vol] 4.0 mmol/L 3.5-5.1 [facility] Protein [Mass/Vol] 7.4 g/dL 6.4-8.2 [facility] Sodium [Moles/Vol] 139 mmol/L 136-145 [facility] Triglyceride [Mass/Vol] 73 mg/dL <199 [facility] Comment on above: The drugs N-Acetylcy steine and Metamizole may falsely depress this assay.Serum Triglycerides Reference Interval Normal <150 mg/dL Borderline high 150 - 199 mg/dL High 200 - 499 mg/dL Very High > or = 500 mg/dL WBC (Bld) [#/Vol] 4.5 10*3/uL 4.4-11.0 [facility] Determination of erythrocyte mean corpuscular volume (MCV)Ordered By: Tiff López on 01-15-2024 MCV (RBC) [Entitic vol] 90.9 fL 81-99 [facility] Erythrocyte distribution wid th ratioOrdered By: Tiff López on 01-15-2024 Erythrocyte distribution width (RBC) [Ratio] 12.2 % 11.6-14.6 [facility] Erythrocyte distribution wid th standard deviationOrdered By: Tiff López on 01-15-2024 Erythrocyte distribution width (RBC) [Entitic vol] 40.5 fL 35.1-43.9 [facility] Hematocrit Auto (Bld) [Volum e fraction]Ordered By: Tiff López on 01-15-2024 Hematocrit (Bld) [Volume fraction] 40.9 % 37-47 [facility] Immature granulocytes/100 WB C Auto (Bld)Ordered By: Tiff López on 01-15-2024 Immature granulocytes/100 WBC (Bld) 0.000 % 0.0-0.9 [facility] Comment on above: IG% - Immature Granu locytes (promyelocytes, myelocytes and metamyelocytes) > 1% indicates that a LEFT SHIFT is Present. Laboratory - Chemistry and C hemistry - challengeOrdered By: Tiff López on 01-15-2024 Albumin/Globulin [Mass ratio] 1.2 {ratio} 0.9-2.4 [facility] ALP [Catalytic activity/Vol] 101 U/L 45-117 [facility] ALT [Catalytic activity/Vol] 32 U/L 13-56 [facility] Cholesterol in HDL [Mass/Vol] 68 mg/dL >40 [facility] Comment on above: The drugs N-Acetylcy steine and Metamizole may falsely depress this assay. Reference Range HDL <40 mg/dL Low HDL Cholesterol HDL >or= 60 mg/dL High HDL Cholesterol Cholesterol in LDL [Mass/Vol] 92 mg/dL 0-130 [facility] CO2 [Moles/Vol] 28.0 mmol/L 21.0-32.0 [facility] Cobalamin (Vitamin B12) [Mass/Vol] 674 pg/mL 211-911 [facility] Globulin (S) [Mass/Vol] 3.4 g/dL 2.2-4.2 [facility] Magnesium [Mass/Vol] 2.5 mg/dL 1.6-2.6 [facility] Urea nitrogen/Creatinine [Mass ratio] 15.7 mg/mg 10-20 [facility] Laboratory - Hematology and Cell countsOrdered By: Tiff López on 01-15-2024 MCH (RBC) [Entitic mass] 30.0 pg 27.0-32.0 [facility] MCHC (RBC) [Mass/Vol] 33.0 g/dL 32-36 [facility] Nucleated RBC/100 WBC (Bld) [Ratio] 0 % 0-5 [facility] Platelet mean volume (Bld) [Entitic vol] 10.4 fL 6.2-12.0 [facility] Platelets (Bld) [#/Vol] 267 10*3/uL 150-450 [facility] No Panel InformationOrdered By: Tiff López on 01-15-2024 Estimated GFR (MDRD) Amer 90 mL/min >60 [facility] Comment on above: GFR Calc Estimated GFR (MDRD) Non-Af Amer 75 mL/min >60 [facility] Comment on above: Non- GFR Calc Vitamin D 25-Hydroxy 46.6 ng/mL [facility] Comment on above: Vitamin D 25(OH) Sta tus Range Deficiency <20 ng/mL (50nmol/L) Insufficiency 20 - 30 ng/mL (50 - 75 nmol/L) Sufficiency 30 - 100 ng/mL (75 - 250 nmol/L) Toxicity >100 ng/mL (>250 nmol/L) VLDL Cholesterol 15 mg/dL 5-40 [facility] RBC Auto (Bld) [#/Vol]Ordere d By: Tiff López on 01-15-2024 RBC (Bld) [#/Vol] 4.50 10*6/uL 4.2-5.4 [facility] Serum or plasma calcium giacomo urement (mass/volume)Ordered By: Tiff López on 01-15-2024 Calcium [Mass/Vol] 9.4 mg/dL 8.5-10.1 [facility] Serum or plasma creatinine m easurement (mass/volume)Ordered By: Tiff López on 01-15-2024 Creatinine [Mass/Vol] 0.83 mg/dL 0.55-1.02 [facility] Comment on above: The validity of the calculated GFR & GFRAA in patients over 70 years has not been determined. Clinical correlation is essential. Serum or plasma thyroid stim ulating hormone (TSH) measurement (units/volume)Ordered By: Tiff López on 01-15-2024 TSH Qn 11.30 uIU/mL 0.358-3.74 [facility] Serum or plasma urea nitroge n measurement (mass/volume)Ordered By: Tfif López on 01-15-2024 Urea nitrogen [Mass/Vol] 13 mg/dL 7-18 [facility] Thin prep Papanicolaou smear with manual screeningOrdered By: Tiff López on 01-15-2024 Thin prep Papanicolaou smear with manual screening 4.0 g/dL 3.2-5.0 [facility] Thin prep Papanicolaou smear with manual screening 25 U/L 15-37 [facility] Thin prep Papanicolaou smear with manual screening 5 5-15 [facility] Whole blood hemoglobin A1c/t otal hemoglobin ratio (mass fraction)Ordered By: Tiff López on 01-15-2024 HbA1c (Bld) [Mass fraction] 5.3 % 3.8-5.6 [facility] Comment on above: Normal < 5.7 % Predi abetic 5.7 - 6.4 % Diabetic >or= 6.5 % Please note range changes. Obdulia 12-05-2023 DOUGLAS Telephone (DERMST) ----- PEDROLEAH Cedillo ([id number]) 1960 F Date Time Provider Department 12/05/23 LILIAM CONTRERAS During your visit today, we recorded the following information about you: Mary Albert RN 12/05/2023 11:18 AM Signed [facility]. Records placed on Liliam Contreras CNP desk for review. Liliam Contreras APRN.JOSE 12/06/2023 11:03 AM Signed Records reviewed. Of note, pathology report from 11/30/2023 shows she had a cutaneous horn removed from the umbilicus, negative for malignancy. Please scan into EMR. Handed to nursing staff. Liliam Contreras APRN.Mary Hunter RN 12/06/2023 11:59 AM Signed Records sent to medical records for scanning. Allergies As of Date: 12/05/2023 Noted Allergy Reaction TAPE (ADHESIVE TAPE (ROSINS)) 09/02/2012 2 - Rash Comments: Paper tape Date Reviewed: 12/04/2022 Reviewed by: Yvonne Peterson LPN - Fully Assessed Reason for Visit: Received Outside Medical Records [[id number]] Prescriptions as of 12/06/2023 - zinc sulfate (ZINC-15 ORAL) Take by mouth. - Ascorbic Acid (VITAMIN C) 100 mg tablet Take 100 mg by mouth once daily. - elderberry fruit (ELDERBERRY ORAL) Take by mouth once daily. - Ebhjlwuv-Ilftvfhymqq-Bojf o, Wh (CETAPHIL) cream Apply 1 application to affected area twice daily. - CALCIUM CARBONATE/VITAMIN D3 (CALCIUM 500 WITH VITAMIN D ORAL) Calcium 600mg/ Vitamin D3 500mg: Take one(1) tablet two(2) times daily. . Problem List As Of Date 12/05/2023 Noted Resolved Abnormal mammogram, unspecified [R92.8] 07/23/2006 11/22/2011 Abnormal mammogram, unspecified [R92.8] 12/05/2011 Breast cancer [C50.919] 12/14/2011 Atrophic vaginitis [N95.2] 03/01/2012 Spitting suture (HCC) [T81.30XA] 04/28/2014 Personal history of malignant neoplasm of breas*03/22/2015 Tinea incognito [B36.8] 10/22/2015 Encounter Status:Closed by MARY ALBERT on 12/06/23 Normal [facility] Absolute lymphocyte countOrd ered By: Steve Douglas on 01-03-2023 Lymphocytes Auto (Unsp spec) [#/Vol] 2.30 10*3/uL 0.83-4.51 [facility] Basophil percentageOrdered B y: Steve Maxder on 01-03-2023 Basophils/100 WBC (Bld) 1.2 % 0-1 [facility] Bilirubin [Mass/Vol] 0.40 mg/dL 0.20-1.00 [facility] Comment on above: For patients on eltr ombopag therapy, use of Dimension [place] TBIL is not recommended. Chloride [Moles/Vol] 107 mmol/L 98-107 [facility] Cholesterol [Mass/Vol] 164 mg/dL <200 [facility] Comment on above: <200 mg/dL Desirable 200-240 mg/dL Borderline >240 mg/dL High Risk Eosinophils/100 WBC (Bld) 6.2 % 0-5 [facility] Glucose [Mass/Vol] 95 mg/dL 74-106 [facility] Neutrophils (Bld) [#/Vol] 1.8 10*3/uL 2.0-7.7 [facility] Neutrophils/100 WBC (Bld) 35.8 % 47-70 [facility] Potassium [Moles/Vol] 4.3 mmol/L 3.5-5.1 [facility] Protein [Mass/Vol] 7.4 g/dL 6.4-8.2 [facility] Sodium [Moles/Vol] 140 mmol/L 136-145 [facility] Triglyceride [Mass/Vol] 60 mg/dL <199 [facility] Comment on above: The drugs N-Acetylcy steine and Metamizole may falsely depress this assay.Serum Triglycerides Reference Interval Normal <150 mg/dL Borderline high 150 - 199 mg/dL High 200 - 499 mg/dL Very High > or = 500 mg/dL WBC (Bld) [#/Vol] 5.0 10*3/uL 4.4-11.0 [facility] Blood erythrocytes count (nu mber/volume)Ordered By: Steve Cole on 01-03-2023 RBC (Bld) [#/Vol] 4.49 10*6/uL 4.2-5.4 [facility] Blood hemoglobin measurement (mass/volume)Ordered By: Steve Cole on 01-03-2023 Hemoglobin (Bld) [Mass/Vol] 13.4 g/dL 12.0-15.0 [facility] Blood lymphocytes/100 leukoc ytesOrdered By: Steve Cole on 01-03-2023 Lymphocytes/100 WBC (Bld) 46.3 % 19-41 [facility] Blood monocytes/100 leukocyt esOrdered By: Steve Cole on 01-03-2023 Monocytes/100 WBC (Bld) 10.3 % 0-10 [facility] Blood platelet mean volumeOr dered By: Steve Cole on 01-03-2023 Platelet mean volume (Bld) [Entitic vol] 10.4 fL 6.2-12.0 [facility] Determination of erythrocyte mean corpuscular volume (MCV)Ordered By: Steve Cole on 01-03-2023 MCV (RBC) [Entitic vol] 92.2 fL 81-99 [facility] Hematocrit Auto (Bld) [Volum e fraction]Ordered By: Steve Cole on 01-03-2023 Hematocrit (Bld) [Volume fraction] 41.4 % 37-47 [facility] Laboratory - Chemistry and C hemistry - challengeOrdered By: Steve Cole on 01-03-2023 Free T4 [Mass/Vol] 0.88 ng/dL 0.76-1.46 [facility] ALP [Catalytic activity/Vol] 84 U/L 45-117 [facility] ALT [Catalytic activity/Vol] 32 U/L 13-56 [facility] CO2 [Moles/Vol] 28.0 mmol/L 21.0-32.0 [facility] Globulin (S) [Mass/Vol] 3.2 g/dL 2.2-4.2 [facility] Urea nitrogen/Creatinine [Mass ratio] 15.9 mg/mg 10-20 [facility] Laboratory - Hematology and Cell countsOrdered By: Steve Cole on 01-03-2023 Erythrocyte distribution width (RBC) [Entitic vol] 42.9 fL 35.1-43.9 [facility] Erythrocyte distribution width (RBC) [Ratio] 12.6 % 11.6-14.6 [facility] Immature granulocytes/100 WBC (Bld) 0.200 % 0.0-0.9 [facility] Comment on above: IG% - Immature Granu locytes (promyelocytes, myelocytes and metamyelocytes) > 1% indicates that a LEFT SHIFT is Present. MCH (RBC) [Entitic mass] 29.8 pg 27.0-32.0 [facility] Nucleated RBC/100 WBC (Bld) [Ratio] 0 % 0-5 [facility] MCHC Auto (RBC) [Mass/Vol]Or dered By: Steve Cole on 01-03-2023 MCHC (RBC) [Mass/Vol] 32.4 g/dL 32-36 [facility] No Panel InformationOrdered By: Steve Cole on 01-03-2023 Estimated GFR (MDRD) Amer 100 mL/min >60 [facility] Comment on above: GFR Calc Estimated GFR (MDRD) Non-Af Amer 83 mL/min >60 [facility] Comment on above: Non- GFR Calc Thyroid Stimulating Hormone (TSH) 4.56 uIU/mL 0.358-3.74 [facility] Platelets bldOrdered By: Lisa Cole on 01-03-2023 Platelets (Bld) [#/Vol] 253 10*3/uL 150-450 [facility] Serum or plasma albumin giacomo urement (mass/volume)Ordered By: Steve Cloe on 01-03-2023 Albumin [Mass/Vol] 4.2 g/dL 3.2-5.0 [facility] Serum or plasma albumin/glob ulin mass ratioOrdered By: Steve Cole on 01-03-2023 Albumin/Globulin [Mass ratio] 1.3 {ratio} 0.9-2.4 [facility] Serum or plasma calcium giacomo urement (mass/volume)Ordered By: Steve Cole on 01-03-2023 Calcium [Mass/Vol] 9.6 mg/dL 8.5-10.1 [facility] Serum or plasma cholesterol in HDL measurement (mass/volume)Ordered By: Steve Cole on 01-03-2023 Cholesterol in HDL [Mass/Vol] 69 mg/dL >40 [facility] Comment on above: The drugs N-Acetylcy steine and Metamizole may falsely depress this assay. Reference Range HDL <40 mg/dL Low HDL Cholesterol HDL >or= 60 mg/dL High HDL Cholesterol Serum or plasma cholesterol in VLDL measurement (mass/volume)Ordered By: Steve Cole on 01-03-2023 Cholesterol in VLDL [Mass/Vol] 12 mg/dL 5-40 [facility] Serum or plasma creatinine m easurement (mass/volume)Ordered By: Steve Cole on 01-03-2023 Creatinine [Mass/Vol] 0.76 mg/dL 0.55-1.02 [facility] Comment on above: The validity of the calculated GFR & GFRAA in patients over 70 years has not been determined. Clinical correlation is essential. Serum or plasma low density lipoprotein (LDL) cholesterol measurement (mass/volume)Ordered By: Steve Cole on 01-03-2023 Cholesterol in LDL [Mass/Vol] 83 mg/dL 0-130 [facility] Serum or plasma urea nitroge n measurement (mass/volume)Ordered By: Steve Cole on 01-03-2023 Urea nitrogen [Mass/Vol] 12 mg/dL 7-18 [facility] Thin prep Papanicolaou smear with manual screeningOrdered By: Steve Cole on 01-03-2023 Thin prep Papanicolaou smear with manual screening 25 U/L 15-37 [facility] Thin prep Papanicolaou smear with manual screening 5 5-15 [facility] Absolute lymphocyte counton 01-02-2022 Lymphocytes Auto (Unsp spec) [#/Vol] 1.72 10*3/uL 0.83-4.51 [facility] Work Phone: [phone] Basophil percentageon 2021 Basophils/100 WBC (Bld) 1.2 % 0-1 [facility] Work Phone: [phone] Bilirubin [Mass/Vol] 0.30 mg/dL 0.20-1.00 [facility] Work Phone: Comment on above: For patients on eltr ombopag therapy, use of Dimension [place] TBIL is not recommended. Chloride [Moles/Vol] 106 mmol/L 98-107 [facility] Work Phone: Cholesterol [Mass/Vol] 171 mg/dL <200 [facility] Work Phone: Comment on above: <200 mg/dL Desirable 200-240 mg/dL Borderline >240 mg/dL High Risk Eosinophils/100 WBC (Bld) 6.6 % 0-5 [facility] Work Phone: Glucose [Mass/Vol] 89 mg/dL 74-106 [facility] Work Phone: Neutrophils (Bld) [#/Vol] 1.7 10*3/uL 2.0-7.7 [facility] Work Phone: Neutrophils/100 WBC (Bld) 40.9 % 47-70 [facility] Work Phone: Potassium [Moles/Vol] 4.0 mmol/L 3.5-5.1 [facility] Work Phone: Protein [Mass/Vol] 7.0 g/dL 6.4-8.2 [facility] Work Phone: [phone] Sodium [Moles/Vol] 139 mmol/L 136-145 [facility] Work Phone: [phone] Triglyceride [Mass/Vol] 64 mg/dL [facility] Work Phone: [phone] Comment on above: The drugs N-Acetylcy steine and Metamizole may falsely depress this assay.Serum Triglycerides Reference Interval Normal <150 mg/dL Borderline high 150 - 199 mg/dL High 200 - 499 mg/dL Very High > or = 500 mg/dL WBC (Bld) [#/Vol] 4.2 10*3/uL 4.4-11.0 [facility] Work Phone: Blood erythrocytes count (nu mber/volume)on 01-02-2022 RBC (Bld) [#/Vol] 4.16 10*6/uL 4.2-5.4 [facility]: Blood hemoglobin measurement (mass/volume)on 01-02-2022 Hemoglobin (Bld) [Mass/Vol] 12.7 g/dL 12.0-15.0 [facility] Work Phone: Blood lymphocytes/100 leukoc yteson 01-02-2022 Lymphocytes/100 WBC (Bld) 40.7 % 19-41 [facility] Work Phone: Blood monocytes/100 leukocyt eson 01-02-2022 Monocytes/100 WBC (Bld) 10.4 % 0-10 [facility] Work Phone: Blood platelet mean volumeon 01-02-2022 Platelet mean volume (Bld) [Entitic vol] 10.5 fL 6.2-12.0 [facility] Work Phone: Determination of erythrocyte mean corpuscular volume (MCV)on 01-02-2022 MCV (RBC) [Entitic vol] 92.3 fL 81-99 [facility] Work Phone: Hematocrit Auto (Bld) [Volum e fraction]on 01-02-2022 Hematocrit (Bld) [Volume fraction] 38.4 % 37-47 [facility] Work Phone: Laboratory - Chemistry and C hemistry - challengeon 01-02-2022 ALP [Catalytic activity/Vol] 87 U/L 45-117 [facility] Work Phone: ALT [Catalytic activity/Vol] 27 U/L 13-56 [facility] Work Phone: CO2 [Moles/Vol] 30.0 mmol/L 21.0-32.0 [facility] Work Phone: Globulin (S) [Mass/Vol] 3.2 g/dL 2.2-4.2 [facility] Work Phone: Urea nitrogen/Creatinine [Mass ratio] 13.6 mg/mg 10-20 [facility] Work Phone: Laboratory - Hematology and Cell countson 01-02-2022 Erythrocyte distribution width (RBC) [Entitic vol] 44.2 fL 35.1-43.9 [facility] Work Phone: Erythrocyte distribution width (RBC) [Ratio] 13.0 % 11.6-14.6 [facility] Work Phone: Immature granulocytes/100 WBC (Bld) 0.200 % 0.0-0.9 [facility] Work Phone: Comment on above: IG% - Immature Granu locytes (promyelocytes, myelocytes and metamyelocytes) > 1% indicates that a LEFT SHIFT is Present. MCH (RBC) [Entitic mass] 30.5 pg 27.0-32.0 [facility] Work Phone: Nucleated RBC/100 WBC (Bld) [Ratio] 0 % 0-5 [facility] Work Phone: MCHC Auto (RBC) [Mass/Vol]on 01-02-2022 MCHC (RBC) [Mass/Vol] 33.1 g/dL 32-36 [facility] Work Phone: No Panel Informationon 01-02 Estimated GFR (MDRD) Amer 93 mL/min >60 [facility] Work Phone: Comment on above: GFR Calc Estimated GFR (MDRD) Non-Af Amer 77 mL/min >60 [facility] Work Phone: Comment on above: Non- GFR Calc Platelets bldon 01-02-2022 Platelets (Bld) [#/Vol] 258 10*3/uL 150-450 [facility] Work Phone: Serum or plasma albumin giacomo urement (mass/volume)on 01-02-2022 Albumin [Mass/Vol] 3.8 g/dL 3.2-5.0 [facility] Work Phone: Serum or plasma albumin/glob ulin mass ratioon 01-02-2022 Albumin/Globulin [Mass ratio] 1.2 {ratio} 0.9-2.4 [facility] Work Phone: Serum or plasma calcium giacomo urement (mass/volume)on 01-02-2022 Calcium [Mass/Vol] 8.5 mg/dL 8.5-10.1 [facility] Work Phone: Serum or plasma cholesterol in HDL measurement (mass/volume)on 01-02-2022 Cholesterol in HDL [Mass/Vol] 67 mg/dL [facility] Work Phone: Comment on above: The drugs N-Acetylcy steine and Metamizole may falsely depress this assay. Reference Range HDL <40 mg/dL Low HDL Cholesterol HDL >or= 60 mg/dL High HDL Cholesterol Serum or plasma cholesterol in VLDL measurement (mass/volume)on 01-02-2022 Cholesterol in VLDL [Mass/Vol] 13 mg/dL 5-40 [facility] Work Phone: Serum or plasma creatinine m easurement (mass/volume)on 01-02-2022 Creatinine [Mass/Vol] 0.81 mg/dL 0.55-1.02 [facility] Work Phone: Comment on above: The validity of the calculated GFR & GFRAA in patients over 70 years has not been determined. Clinical correlation is essential. Serum or plasma low density lipoprotein (LDL) cholesterol measurement (mass/volume)on 01-02-2022 Cholesterol in LDL [Mass/Vol] 91 mg/dL 0-130 [facility] Work Phone: Serum or plasma urea nitroge n measurement (mass/volume)on 01-02-2022 Urea nitrogen [Mass/Vol] 11 mg/dL 7-18 [facility] Work Phone: Thin prep Papanicolaou smear with manual screeningon 01-02-2022 Thin prep Papanicolaou smear with manual screening 21 U/L 15-37 [facility] Work Phone: Thin prep Papanicolaou smear with manual screening 3 5-15 [facility] Work Phone: Office Visit: Acute Visiton 09-10-2017 Documentation of current medications (procedure) Done Invalid Interpretation Code [facility] Work Phone: Tobacco smoking status NHIS Tobacco smoking status NHIS Invalid Interpretation Code [facility] Work Phone: Tobacco smoking status ORIS Never Invalid Interpretation Code [facility] Work Phone: Tobacco use [facility] Never smoker Invalid Interpretation Code [facility] Work Phone: Office Visit: est annualon 1 10-23-2016 Documentation of current medications (procedure) Done Invalid Interpretation Code [facility] Fall risk assessment No Invalid Interpretation Code [facility] External Other: Preferred Me thod of Contacton 08-10-2017 methcontact secmsg Invalid Interpretation Code [facility] [place] [employer] Work Phone: Clinical Lists Update: Prelo vice president biostatistics 08-06-2017 Tobacco smoking status NHIS Never Invalid Interpretation Code [facility] Tobacco smoking status NH Never smoker Invalid Interpretation Code [facility] Tobacco use [facility] Never smoker Invalid Interpretation Code [facility] Lab Report: Basic Metabolic Profile (BMP)on 08-03-2017 Anion gap 7 mmol/L Invalid Interpretation Code 5-15 [facility] Anion gap 4 molar conc 7 Invalid Interpretation Code 15 [facility] Work Phone: Calcium mass conc 9.0 mg/dL Invalid Interpretation Code 8.5-10.1 [facility] Work Phone: Chloride molar conc 107 mmol/L Invalid Interpretation Code 98-107 [facility] Work Phone: CO2 27.0 mmol/L Invalid Interpretation Code 21.0-32.0 [facility] CO2 ppres (BldV) 27.0 mmol/L Invalid Interpretation Code 21.0-32.0 [facility] Work Phone: [phone] Creatinine mass conc 0.72 mg/dL Invalid Interpretation Code 0.55-1.02 [facility] Work Phone: [phone] eGFR (non-black) 109 mL/min/{1.73_m2} Invalid Interpretation Code >60 [facility] EST GFR - AA 109 mL/min Invalid Interpretation Code >60 [facility] Work Phone: [phone] GFR/1.73 sq M predicted among non-blacks MDRD vol rate/area (S/P/Bld) 90 mL/min/{1.73_m2} Invalid Interpretation Code >60 [facility] Work Phone: [phone] Glucose mass conc 89 mg/dL Invalid Interpretation Code 70-110 [facility] Work Phone: [phone] Potassium molar conc 4.2 mmol/L Invalid Interpretation Code 3.5-5.1 [facility] Work Phone: [phone] Sodium molar conc 141 mmol/L Invalid Interpretation Code 136-145 [facility] Work Phone: [phone] Urea nitrogen mass conc 10 mg/dL Invalid Interpretation Code 7-18 [facility] Work Phone: [phone] Urea nitrogen/Creatinine mass ratio 13.9 RATIO Invalid Interpretation Code 08-03 [facility] Work Phone: [phone] Lab Report: CBC W/Diff, Auto matedon 08-03-2017 Absolute Neut 2.1 X10 3/UL Invalid Interpretation Code 2.0-7.7 [facility] Basophils/100 WBC Auto (Bld) 0.6 % Invalid Interpretation Code 0-1 [facility] Work Phone: [phone] Eosinophils/100 WBC Auto (Bld) 3.5 % Invalid Interpretation Code 0-5 [facility] Work Phone: [phone] Erythrocyte distribution width Auto Ratio (RBC) 12.9 % Invalid Interpretation Code 11.6-14.6 [facility] Work Phone: [phone] Erythrocyte distribution width Auto Ratio (RBC) 41.8 fL Invalid Interpretation Code 35.1-43.9 [facility] Work Phone: [phone] Hematocrit Auto Volume Fraction (Bld) 39.6 % Invalid Interpretation Code 37-47 [facility] Work Phone: [phone] Hemoglobin mass conc (Bld) 13.3 g/dL Invalid Interpretation Code 12.0-15.0 [facility] Work Phone: [phone] Immature granulocytes #/vol (Bld) 0.000 % Invalid Interpretation Code 0.0-0.9 [facility] Work Phone: [phone] Immature granulocytes/100 WBC (Bld) 0.000 % Invalid Interpretation Code 0.0-0.9 [facility] Lymphocytes Auto #/vol (Bld) 2.00 X10 3/UL Invalid Interpretation Code 0.83-4.51 [facility] Work Phone: [phone] Lymphocytes/100 WBC Auto (Bld) 41.3 % High 19-41 [facility] Work Phone: [phone] MCH Auto Entitic mass (RBC) 30.0 pg Invalid Interpretation Code 27.0-32.0 [facility] Work Phone: [phone] MCHC Auto mass conc (RBC) 33.6 G/GL Invalid Interpretation Code 32-36 [facility] Work Phone: [phone] MCV Auto Entitic volume (RBC) 89.2 fL Invalid Interpretation Code 81-99 [facility] Work Phone: [phone] Monocytes/100 WBC Auto (Bld) 11.4 % High 0-10 [facility] Work Phone: [phone] Neutrophils Auto #/vol (Bld) 2.1 X10 3/UL Invalid Interpretation Code 2.0-7.7 [facility] Work Phone: [phone] Neutrophils/100 WBC Auto (Bld) 43.2 % Low 47-70 [facility] Work Phone: [phone] Platelet mean volume Presley-Amy Entitic volume (Bld) 10.4 fL Invalid Interpretation Code 6.2-12.0 [facility] Work Phone: [phone] Platelets Auto #/vol (Bld) 276 10*3/mm3 Invalid Interpretation Code 150-450 [facility] Work Phone: RBC Auto #/vol (Bld) 4.44 10*6/uL Invalid Interpretation Code 4.2-5.4 [facility] Work Phone: RDW SD 41.8 fL Invalid Interpretation Code 35.1-43.9 [facility] WBC Auto #/vol (Bld) 4.8 10*3/uL Invalid Interpretation Code 4.4-11.0 [facility] Work Phone: Lab Report: Lipid Profileon 08-03-2017 Cholesterol 155 mg/dL Invalid Interpretation Code 200 [facility] HDL Cholesterol 72 mg/dL Invalid Interpretation Code [facility] LDL Cholesterol 69 mg/dL Invalid Interpretation Code 0-130 [facility] Triglyceride 71 mg/dL Invalid Interpretation Code [facility] very low density lipoproteins 14 mg/dL Invalid Interpretation Code 5-40 [facility] Office Visit: New Pt. Visito n 08-02-2017 Documentation of current medications (procedure) Done Invalid Interpretation Code [facility] Fall risk assessment No Invalid Interpretation Code [facility] Work Phone: Protein mass conc Done Invalid Interpretation Code [facility] Work Phone: Tobacco smoking status NHIS Never Invalid Interpretation Code [facility] Work Phone: Tobacco smoking status ORIS Never smoker Invalid Interpretation Code [facility] Work Phone: Office Visit: leigh ann rousseau tcholelo 06-14-2017 Documentation of current medications (procedure) Done Invalid Interpretation Code [facility] Work Phone: Fall risk assessment No Invalid Interpretation Code [facility] Work Phone: Protein mass conc Done [facility] Work Phone: Tobacco smoking status NHIS Never Invalid Interpretation Code [facility] Work Phone: Tobacco smoking status NHIS Never smoker [facility] Work Phone: Tobacco use CPHS Never smoker Invalid Interpretation Code [facility] Work Phone: Office Visit: est annualon 0 03-15-2017 Breast Mammogram screening Normal Bilateral Invalid Interpretation Code [facility] Office Visit: est annualon 0 05-15-2014 General categories [Interpretation] of Cervical or vaginal smear or scraping by Cyto stain Normal Invalid Interpretation Code [facility] Vital Signs Date Time Vital Sign Value Performing Clinician Faci lity 01-03-2025 09:45-0400 Body temperature 98.5 [degF] Dr. Pablito Aaron MD Work Phone: [facility] 01-03-2025 09:45-0400 Diastolic blood pressure 72 mm[Hg] Dr. Pablito Aaron MD Work Phone: [facility] 01-03-2025 09:45-0400 Heart rate 111 /min Dr. Pablito Aaron MD Work Phone: [facility] 01-03-2025 09:45-0400 SaO2% (BldA) [Mass fraction] 96 % Dr. Pablito Aaron MD Work Phone: [facility] 01-03-2025 09:45-0400 Systolic blood pressure 122 mm[Hg] Dr. Pablito Aaron MD Work Phone: [facility] 12-26-2024 11:09-0400 Body height 167.[address] Pablito Aaron MD Work Phone: [facility] 12-26-2024 11:09-0400 Body mass index (BMI) [Ratio] 28.4 kg/m2 Dr. Pablito Aaron MD Work Phone: [facility] 12-26-2024 11:09-0400 Body weight 79.[address] Pablito Aaron MD Work Phone: [facility] 12-26-2024 11:09-0400 Diastolic blood pressure 78 mm[Hg] Dr. Pablito Aaron MD Work Phone: [facility] 12-26-2024 11:09-0400 Systolic blood pressure 121 mm[Hg] Dr. Pablito Aaron MD Work Phone: [facility] 11-30-2023 13:48-0500 Body height 167.[address] Tiana Raymundo Work Phone: [facility] 11-30-2023 13:46-0500 Body mass index (BMI) [Ratio] 28.8 kg/m2 Dr. Tiana Raymundo Work Phone: [facility] 11-30-2023 13:46-0500 Body weight 80.[address] Tiana Raymundo Work Phone: [facility] 11-30-2023 13:46-0500 Diastolic blood pressure 85 mm[Hg] Dr. Tiana Raymundo Work Phone: [facility] 11-30-2023 13:46-0500 Systolic blood pressure 146 mm[Hg] Dr. Tiana Raymundo Work Phone: [facility] 01-03-2023 08:57-0400 Body height 167.[address] Tiana Raymundo Work Phone: [facility] 01-03-2023 08:57-0400 Body mass index (BMI) [Ratio] 28 kg/m2 Dr. Tiana Raymundo Work Phone: [facility] 01-03-2023 08:57-0400 Body temperature 97.7 [degF] Dr. Tiana Raymundo Work Phone: [facility] 01-03-2023 08:57-0400 Body weight 78.[address] Tiana Raymundo Work Phone: [facility] 01-03-2023 08:57-0400 Diastolic blood pressure 70 mm[Hg] Dr. Tiana Raymundo Work Phone: [facility] 01-03-2023 08:57-0400 Heart rate 71 /min Dr. Tiana Raymundo Work Phone: [facility] 01-03-2023 08:57-0400 Respiratory rate 16 /min Dr. Tiana Raymundo Work Phone: [facility] 01-03-2023 08:57-0400 SaO2% (BldA) [Mass fraction] 99 % Dr. Tiana Raymundo Work Phone: [facility] 01-03-2023 08:57-0400 Systolic blood pressure 116 mm[Hg] Dr. Tiana Raymundo Work Phone: [facility] 07-05-2022 15:19-0400 Body height 167.[address] Tiana Raymundo Work Phone: [facility] Work Phone: 07-05-2022 15:19-0400 Body temperature 97.5 [degF] Dr. Tiana Raymundo Work Phone: [facility] Work Phone: 07-05-2022 15:19-0400 Diastolic blood pressure 84 mm[Hg] Dr. Tiana Raymundo Work Phone: [facility] Work Phone: 07-05-2022 15:19-0400 Heart rate 87 /min Dr. Tiana Raymundo Work Phone: [facility] Work Phone: 07-05-2022 15:19-0400 Respiratory rate 16 /min Dr. Tiana Raymundo Work Phone: [facility] Work Phone: 07-05-2022 15:19-0400 SaO2% (BldA) [Mass fraction] 99 % Dr. Tiana Raymundo Work Phone: [facility] Work Phone: 07-05-2022 15:19-0400 Systolic blood pressure 122 mm[Hg] Dr. Tiana Raymundo Work Phone: [facility] Work Phone: 01-02-2022 08:29-0400 Body height 167.[address] Tinaa Raymundo Work Phone: [facility] Work Phone: 01-02-2022 08:29-0400 Body mass index (BMI) [Ratio] 28.4 kg/m2 Dr. Tiana Raymundo Work Phone: [facility] Work Phone: 01-02-2022 08:29-0400 Body temperature 96.5 [degF] Dr. Tiana Raymundo Work Phone: [facility] Work Phone: 01-02-2022 08:29-0400 Body weight 79.[address] Tiana Raymundo Work Phone: [facility] Work Phone: 01-02-2022 08:29-0400 Diastolic blood pressure 80 mm[Hg] Dr. Tiana Raymundo Work Phone: [facility] Work Phone: 01-02-2022 08:29-0400 Heart rate 69 /min Dr. Tiana Raymundo Work Phone: [facility] Work Phone: 01-02-2022 08:29-0400 Respiratory rate 16 /min Dr. Tiana Raymundo Work Phone: [facility] Work Phone: 01-02-2022 08:29-0400 SaO2% (BldA) [Mass fraction] 99 % Dr. Tiana Raymundo Work Phone: [facility] Work Phone: 01-02-2022 08:29-0400 Systolic blood pressure 120 mm[Hg] Dr. Tiana Raymundo Work Phone: [facility] Work Phone: 11-08-2021 07:08-0500 Body mass index (BMI) [Ratio] 28.7 kg/m2 Dr. Tiana Raymundo Work Phone: [facility] Work Phone: 11-08-2021 07:08-0500 Body temperature 95.9 [degF] Dr. Tiana Raymundo Work Phone: [facility] Work Phone: 11-08-2021 07:08-0500 Body weight 80.[address] Tiana Raymundo Work Phone: [facility] Work Phone: 11-08-2021 07:08-0500 Diastolic blood pressure 70 mm[Hg] Dr. Tiana Raymundo Work Phone: [facility] Work Phone: 11-08-2021 07:08-0500 Heart rate 91 /min Dr. Tiana Raymundo Work Phone: [facility] Work Phone: 11-08-2021 07:08-0500 Respiratory rate 16 /min Dr. Tiana Raymundo Work Phone: [facility] Work Phone: 11-08-2021 07:08-0500 SaO2% (BldA) [Mass fraction] 98 % Dr. Tiana Raymundo Work Phone: [facility] Work Phone: 11-08-2021 07:08-0500 Systolic blood pressure 114 mm[Hg] Dr. Tiana Raymundo Work Phone: [facility] Work Phone: 10-17-2021 07:03-0500 Body mass index (BMI) [Ratio] 28.5 kg/m2 Dr. Tiana Raymundo Work Phone: [facility] Work Phone: 10-17-2021 07:03-0500 Body temperature 97.3 [degF] Dr. Tiana Raymundo Work Phone: [facility] Work Phone: 10-17-2021 07:03-0500 Body weight 80.[address] Tiana Raymundo Work Phone: [facility] Work Phone: 10-17-2021 07:03-0500 Diastolic blood pressure 70 mm[Hg] Dr. Tiana Raymundo Work Phone: [facility] Work Phone: 10-17-2021 07:03-0500 Heart rate 67 /min Dr. Tiana Raymundo Work Phone: [facility] Work Phone: 10-17-2021 07:03-0500 SaO2% (BldA) [Mass fraction] 98 % Dr. Tiana Raymundo Work Phone: [facility] Work Phone: 10-17-2021 07:03-0500 Systolic blood pressure 118 mm[Hg] Dr. Tiana Raymundo Work Phone: [facility] Work Phone: 10-11-2021 12:01-0500 Body mass index (BMI) [Ratio] 29 kg/m2 Dr. Tiana Raymundo Work Phone: [facility] Work Phone: 10-11-2021 12:01-0500 Body weight 81.[address] Tiana Raymundo Work Phone: [facility] Work Phone: 10-11-2021 12:01-0500 Diastolic blood pressure 80 mm[Hg] Dr. Tiana Raymundo Work Phone: [facility] Work Phone: 10-11-2021 12:01-0500 Systolic blood pressure 130 mm[Hg] Dr. Tiana Raymundo Work Phone: [facility] Work Phone: 09-10-2017 08:31-0500 BMI (Body Mass Index) 28.37 kg/m2 Tiana Raymundo MD [facility] Work Phone: 09-10-2017 08:31-0500 Body Temperature 98.8 [degF] Tiana Raymundo MD [facility] Work Phone: 09-10-2017 08:31-0500 BP Diastolic 77 mm[Hg] Tiana Raymundo MD [facility] Work Phone: 09-10-2017 08:31-0500 BP Systolic 120 mm[Hg] Tiana Raymundo MD [facility] Work Phone: 09-10-2017 08:31-0500 Height 167.64 cm Tiana Raymundo MD [facility] Work Phone: 09-10-2017 08:31-0500 Pulse (Heart Rate) 107 /min Tiana Raymundo MD [facility] Work Phone: 09-10-2017 08:31-0500 Respiratory Rate 16 /min Tiana Raymundo MD [facility] Work Phone: 09-10-2017 08:31-0500 Weight 79.74 kg Tiana Raymundo MD [facility] Work Phone: 08-23-2017 16:00-0500 BMI (Body Mass Index) 28.92 kg/m2 Cheryl Rivera MD [facility] 08-23-2017 16:00-0500 BP Diastolic 76 mm[Hg] Cheryl Rivera MD [facility] 08-23-2017 16:00-0500 BP Systolic 118 mm[Hg] Cheryl Rivera MD [facility] 08-23-2017 16:00-0500 Height 167.64 cm Cheryl Rivera MD [facility] 08-23-2017 16:00-0500 Weight 81.28 kg Cheryl Rivera MD [facility] 08-23-2017 16:00-0500 Weight 81.29 kg Cheryl Rivear MD [facility] 08-02-2017 09:08-0400 BMI (Body Mass Index) 28.89 kg/m2 Ledabrien Navarro [facility] Work Phone: 08-02-2017 09:08-0400 Body Temperature 97.8 [degF] Leda Ramon [facility] Work Phone: 08-02-2017 09:08-0400 BP Diastolic 73 mm[Hg] Leda Ramon [facility] Work Phone: 08-02-2017 09:08-0400 BP Systolic 118 mm[Hg] Leda Ramon [facility] Work Phone: 08-02-2017 09:08-0400 Height 167.64 cm Leda Navarro [facility] Work Phone: 08-02-2017 09:08-0400 Pulse (Heart Rate) 85 /min Leda Navarro [facility] Work Phone: 08-02-2017 09:08-0400 Respiratory Rate 18 /min Ledabrien Navarro [facility] Work Phone: 08-02-2017 09:08-0400 Weight 81.19 kg Ledabrien Navarro [facility] Work Phone: Encounters Encounter Date Encounter Type Care Provider Facility Start: 04-08-2025 ambulatory Pablito Aaron Facility:[facility] Start: 04-06-2025 End: 04-06-[address] Pablito Aaron MD Work Phone: [facility] Work Phone: Start: 04-06-2025 End: 04-06-[address] Pablito Aaron MD -Ultrasound [facility] Work Phone: Start: 04-06-2025 End: 04-06-2025 ambulatory Pablito Aaron Facility:[facility] Start: 01-23-2025 ambulatory Ben Berman lity:[facility] Start: 01-16-2025 End: 01-16-[address] Pablito Aaron MD Work Phone: [facility] Work Phone: Start: 01-16-2025 End: 01-16-[address] Cheryl Rivera MD -Outpatient Breast Imaging Work Phone: Start: 01-15-2025 End: 01-16-[address] Pablito Aaron MD Work Phone: [facility] Work Phone: Start: 01-15-2025 End: 01-15-2025 Patient encounter procedure Latricia Jerry MARKETING TECHNOLOGIST-C -Laboratory, [place] Work Phone: Start: 01-15-2025 End: 01-15-2025 ambulatory Latricia Jerry NP Facility:[facility] Start: 01-03-2025 End: 01-03-2025 Patient encounter procedure Meme Gates MARKETING TECHNOLOGIST-C -[facility] Work Phone: Start: 01-03-2025 End: 01-03-2025 ambulatory Pablito Aaron Facility:[facility] Start: 12-26-2024 End: 12-26-[address] Cheryl Rivera MD -[facility] Work Phone: Start: 12-26-2024 End: 12-26-[address] Cheryl Rivera MD [facility] Start: 12-26-2024 End: 12-26-2024 ambulatory Cheryl Rivera Facility:[facility] Start: 12-26-2024 Registered Referred Self Referred [facility] Work Phone: Start: 12-26-2024 ambulatory Self Referred Facility: [facility] Start: 10-24-2024 End: 10-24-[address] Pablito Aaron MD -Laboratory, [place] Work Phone: Start: 10-24-2024 End: 10-24-2024 ambulatory Pablito Aaron Facility:[facility] Start: 10-23-2024 End: 10-23-2024 Patient encounter procedure Devengurdeep Noel DO -[facility], [facility] Work Phone: Start: 10-23-2024 End: 10-23-2024 ambulatory Deven Sadie Facility:[facility] Start: 09-26-2024 End: 09-26-2024 Patient encounter procedure Deven Noel -[facility] Work Phone: Start: 09-26-2024 End: 09-26-2024 ambulatory Deven Sadie Facility:[facility] Start: 09-18-2024 ambulatory Deven Sadie Facility :[facility] Start: 08-07-2024 End: 08-07-2024 ambulatory Latricia Claritza MARKETING TECHNOLOGIST Facility:[facility] Start: 06-13-2024 End: 06-13-2024 ambulatory Latricia Claritza MARKETING TECHNOLOGIST Facility[facility] Start: 05-08-2024 End: 05-08-2024 ambulatory Latricia Claritza MARKETING TECHNOLOGIST Facility:[facility] Start: 01-31-2024 End: 01-31-[address] Tiana Raymundo Work Phone: [facility] Work Phone: Start: 01-31-2024 End: 01-31-[address] Tiana Raymundo Work Phone: [facility] Work Phone: Start: 01-25-2024 End: 01-25-[address] Tiana Raymundo Work Phone: [facility] Work Phone: Start: 01-25-2024 End: 01-25-[address] Tiana Raymundo Work Phone: [facility] Work Phone: Start: 01-18-2024 End: 01-18-[address] Tiana Raymundo Work Phone: [facility] Work Phone: Start: 01-18-2024 End: 01-18-[address] Tiana Raymundo Work Phone: [facility] Work Phone: Start: 01-15-2024 End: 01-15-[address] Tiana Raymundo Work Phone: [facility] Work Phone: Start: 01-15-2024 End: 01-15-[address] Tiana Raymundo Work Phone: [facility], [place] Work Phone: Start: 12-05-2023 Telephone encounter Liliam jose APRN.[facility] Work Phone: Dermatology Comment on above: Received Outside [facility] Start: 11-30-2023 End: 11-30-[address] Tiana Raymundo Work Phone: [facility] Work Phone: Start: 11-30-2023 End: 11-30-[address] Tiana Raymundo Work Phone: [facility]-Laboratory, Specimen Work Phone: Start: 11-30-2023 End: 11-30-[address] Tiana Raymundo Work Phone: [facility] Work Phone: Start: 03-23-2023 End: 03-23-[address] Tiana Raymundo Work Phone: [facility] Work Phone: Start: 03-23-2023 End: 03-23-[address] Tiana Raymundo Work Phone: [facility]-Outpatient Breast Imaging Start: 01-03-[address] Tiana Raymundo Work Phone: [facility] Start: 01-03-2023 End: 01-03-2023 Encounter for general adult medical examination without abnormal findings Dr. Tiana Raymundo Work Phone: [facility] Start: 01-03-2023 End: 01-03-[address] Tiana Raymundo Work Phone: [facility] Start: 12-04-2022 End: 12-04-2022 Patient encounter procedure Liliam Cnotreras APRN.CNP Work Phone: Dermatology Comment on above: Pilar cyst (Primary Dx); Milia; Seborrheic keratosis; Multiple benign nevi; Levy angioma Start: 07-19-2022 End: 07-19-[address] Tiana Raymundo Work Phone: [facility] Work Phone: Start: 07-19-2022 End: 07-19-[address] Tiana Raymundo Work Phone: [facility]-Laboratory, Specimen Start: 07-19-2022 End: 07-19-[address] Tiana Raymundo Work Phone: [facility] Start: 07-05-2022 End: 07-05-[address] Tiana Raymundo Work Phone: [facility] Start: 03-15-2022 End: 03-15-[address] Tiana Raymundo Work Phone: [facility]-Outpatient Breast Imaging Start: 01-02-2022 End: 01-02-[address] Tiana Raymundo Work Phone: [facility] Start: 11-08-2021 End: 11-08-[address] Tiana Raymundo Work Phone: [facility] Start: 11-02-2021 End: 11-02-[address] Tiana Raymundo Work Phone: [facility]-Radiology, [place] Start: 10-17-2021 End: 10-17-[address] Tiana Raymundo Work Phone: [facility] Start: 10-11-2021 End: 10-11-[address] Tiana Raymundo Work Phone: [facility] Start: 10-05-2021 End: 10-05-[address] Tiana Raymundo Work Phone: [facility] Start: 09-23-[address] Tiana Raymundo Work Phone: [facility] Start: 12-28-2020 End: 12-28-2020 Patient encounter procedure EBONIE NAVARRO [facility] Procedures Date Procedure Procedure Detail Performing Clinician Start: 04-06-2025 US scan of thyroid Dr. Pablito Aaron MD Work Phone: Start: 01-16-[address] Pablito Aaron MD Work Phone: Start: 01-16-[address] Pablito currie MD Work Phone: Start: 10-23-[address] Pablito currie MD Work Phone: Start: 01-31-2024 Ultrasonography of t hyroid and parathyroid Dr. Tiana Raymundo Work Phone: Start: 01-18-[address] Tiana Raymundo Work Phone: Start: 01-18-[address] Radha Raymundo Work Phone: Start: 03-23-2023 Screening mammograph y of right breast Dr. Tiana Raymundo Work Phone: Start: 03-15-2022 Screening mammograph y of right breast Dr. Tiana Raymundo Work Phone: Start: 11-02-2021 X-ray of lumbar spin e, two or three views Dr. Tiana Raymundo Work Phone: Start: 09-23-[address] Tiana Raymundo Work Phone: Start: 03-29-2018 Mammography Liliam jose APRN.[facility] Work Phone: Start: 08-02-2017 End: 08-03-2017 *BMP Tiana Agosto Work Phone: Start: 08-02-2017 End: 08-03-2017 *CBC with Differential Tiana chan MD Work Phone: Start: 08-02-2017 End: 08-10-2017 Lipid 1996 panel - Serum or Plasma Tiana Raymundo MD Work Phone: Start: 07-29-2012 Colonoscopy Liliam jose APRN.[employer] [facility] Work Phone: Plan of Treatment Date Care Activity Detail Author Start: 01-20-2026 Urine microalbumin profile DTaP,Tdap,Td Vaccine (2 - Td or Tdap) [facility] Start: 12-26-2024 Patient referral [facility] Work Phone: Start: 01-18-2024 Pelvic echography Pelvic (Non ) [facility] Start: 01-18-2024 US Pelvis [facility] Start: 10-15-2023 Depression Assessment Depression Assessment [facility] Start: 06-15-2023 Covid-19 Vaccine ( season) Covid-19 Vaccine ( season) [facility] Start: 06-15-2023 Influenza vaccination Influenza Vaccine (#1) [facility] Start: 10-15-2022 DEPRESSION ASSESSMENT DEPRESSION ASSESSMENT [facility] Start: 2022 RSV Vaccine (1 - 1-dose 60+ series) RSV Vaccine (1 - 1-dose 60+ series) [facility] Start: 08-10-2022 LIPID SCREEN LIPID SCREEN [facility] Start: 08-02-2022 Lipid panel Lipid Screening [facility] Start: 07-29-2022 Colonoscopy COLONOSCOPY [facility] Start: 07-29-2022 COLORECTAL CANCER SCREENING COLORECTAL CANCER SCREENING [facility] Start: 07-29-2022 Screening for malignant neoplasm of colon [facility] Start: 01-02-2022 Patient referral [facility] Work Phone: Start: 11-08-2021 Patient referral [facility] Work Phone: Start: 10-07-2019 DIABETES SCREEN DIABETES SCREEN [facility] Start: 10-07-2019 Diabetes Screening Diabetes Screening [facility] Start: 06-09-2019 HPV TESTING HPV TESTING [facility] Start: 06-09-2019 PAP TESTING PAP TESTING [facility] Start: 06-09-2019 Screening for malignant neoplasm of cervix [facility] Start: 03-29-2019 Mammography MAMMOGRAM [facility] Start: 03-29-2019 Screening for malignant neoplasm of breast Mammogram Screening [facility] Start: 09-10-2017 End: 09-10-2017 Appointment Appointment [facility] Work Phone: Start: 08-23-2017 End: 08-23-2017 Appointment Appointment [facility] Work Phone: Start: 08-02-2017 End: 08-03-2017 *BMP *BMP [facility] Work Phone: Start: 08-02-2017 End: 08-03-2017 *CBC with Differential *CBC with Differential [facility] Work Phone: Start: 08-02-2017 End: 08-02-2017 Follow Up Appt 1 year Follow Up Appt 1 year [facility] Work Phone: Start: 08-02-2017 End: 08-02-2017 Follow-up visit Follow Up as needed [facility] Work Phone: Start: 08-02-2017 End: 08-10-2017 Lipid panel [AGGREGATE] *Lipid Profile [facility] Work Phone: Start: 08-02-2017 End: 08-02-2017 Appointment Appointment [facility] Work Phone: Start: 2012 SHINGRIX VACCINE (1 of 2) SHINGRIX VACCINE (1 of 2) [facility] Start: 2007 COLOGUARD (FIT-DNA) COLOGUARD (FIT-DNA) [facility] Start: [address] COLONOGRAPHY [facility] Start: 2007 FECAL OCCULT BLOOD FECAL OCCULT BLOOD [facility] Start: 2007 Screening for malignant neoplasm of colon [facility] Start: 2007 SIGMOIDOSCOPY SIGMOIDOSCOPY [facility] Start: 1981 Urine microalbumin profile DTAP,TDAP,TD (1 - Tdap) [facility] Start: 1980 HEPATITIS C SCREENING HEPATITIS C SCREENING [facility] Start: 1980 Hepatitis C screening Hepatitis C Screening [facility] Start: 1980 HIV SCREENING HIV SCREENING [facility] Start: 1980 HIV screening HIV Screening [facility] MG Breast - left Screening [facility] Patient referral [facility] Work Phone: US Pelvis [facility] Pelvis transvaginal [facility] Work Phone: [facility] Immunizations Immunization Date Immunization Notes Care Provider Fa cility 08-18-2022 influenza virus vacc ine, unspecified formulation Liliam Contreras VOICE STUDIES DIRECTOR.[employer] Work Phone: [facility] Payers Date Payer Category Payer Self-pay [id number] 2024 Private Health Insurance [id number] 2024 Self-pay [id number] 2024 Unknown [id number] 2022 Unknown MMO MMO SUPER[employer] PPO [id number] 2022-Present [phone] [address] [place] [address] PPO [id number] 1960 Unknown [id number] 51 Private Health Insurance [employer] [id number] Unknown [id number] Unknown [id number] [id number] 64 Unknown [id number] 2.16.840.1.908976.3.579.2.4 64 Unknown [id number] 2.16.840.1.668986.3.579.2.4 64 Unknown [id number] 2.16.840.1.328696.3.579.2.4 62 Unknown [id number] 2.16.840.1.754147.3.579.2.4 62 Unknown [id number] 2.16.840.1.371481.3.579.2.4 62 Unknown [id number] 2.16.840.1.328715.3.579.2.4 62 Unknown [id number] 2.16.840.1.450871.3.579.2.4 62 Unknown [id number] 2.16.840.1.447479.3.579.2.4 62 Unknown [id number] 2.16.840.1.850231.3.579.2.4 62 Unknown [id number] 2.16.840.1.268510.3.579.2.4 62 Unknown [id number] 2.16.840.1.587431.3.579.2.4 62 Unknown [id number] 2.16.840.1.896866.3.579.2.4 62 Unknown [id number] 2.16.840.1.356873.3.579.2.4 64 Unknown [id number] 2.16.840.1.509873.3.579.2.4 64 Social History Date Type Detail Facility Start: 01-02-2022 End: 11-30-2023 Tobacco smoking status ORIS Unknown if ever smoked [facility] Start: 1960 Sex Assigned At Female W [facility] Start: 05-03-2011 End: 12-26-2024 Tobacco smoking status ORIS Never smoked tobacco [facility] Start: 05-03-2011 Tobacco use and exposure Smokeless tobacco non-user [facility] Start: 10-01-2020 Alcohol intake Current drinke r of alcohol (finding) [facility] Start: 07-26-2015 Alcohol Comment Socially [facility] Start: 1960 Sex Assigned At Not on file [facility] Start: 10-01-2020 End: 12-04-2022 History of Social function [facility] Start: 10-01-2020 End: 12-04-2022 Tobacco use panel [facility] Adult Depression Screening Assessment 0 [facility] Start: 01-21-2025 End: 01-22-2025 Sex Female (finding) [facility] Clinical Notes 07-23-2006 to 04-06-2025 Note Date & Type Note Facility 04-06-2025 Radiology Diagnostic study note [facility] Imaging Services [address] [place], [place] [address] Thyroid MR#: [id number] Acct: [id number] Name: LEAH VASQUEZ Rep #: [id number] : 1960 F 64 From: Bebe Farah MD PCP: Dr. Pablito Aaron MD Status: REG C MARTHA Study:Thyroid Date of Exam: 04/06/25 Exam# [id number] Ordering Dr: Pablito Aaron MD PROCEDURE: THYROID 04/06/2025 REASON FOR EXAM: NONTOXIC GOITER, UNSPECIFIED TECHNIQUE: THYROID COMPARISON: Thyroid ultrasound on 01/31/2024 FINDINGS: Right thyroid lobe size: 3.9 x 1.1 x 1.4 cm Left thyroid lobe size: 3.5 x 1.0 x 1.2 cm Isthmus: 0.1 cm Background parenchymal echotexture is heterogeneous Nodules: 1. Lobe: Left, Location: Mid, Size: 0.6 x 0.3 x 0.4 cm, Stability: New Composition: Solid or almost completely solid (+2) Echogenicity: Very hypoechoic (+3) Margin: Smooth (+0) Shape: Wider than tall (+0) Echogenic Foci: None (+0) TI-RADS: 4 US/Thyroid IMPRESSION: 1. Solitary nodule in the left thyroid lobe, which does not require follow-up or FNA per ACR TI-RADS guidelines. 2. Heterogeneous thyroid parenchyma, suggestive of underlying thyroid disease. Reading Location: [id number] CC: Dr. Pablito Aaron MD ~ Vocational Instructor: Signed [facility] 01-16-2025 Radiology Diagnostic study note [facility] Imaging Services [address] [place] [id number] Breast Limited Unilateral MR#: [id number] Acct: [id number] Name: LEAH VASQUEZ Rep #: [id number] : 1960 F 64 From: Holli Bond MD PCP: Dr. Pablito Aaron MD Status: REG C MARTHA Study:Breast Limited Unilateral Date of Exam: 01/16/25 Exam# [id number] Ordering Dr: Cheryl Chen MD PROCEDURE: DIAG MAMM W/CAD, UNILAT; RT BRST UNILAT TAVON ADD-ON; BREAST LIMITED UNILATERAL REASON FOR EXAM: F, Age 64 y/o , BREAST PAIN, LUMP OF RIGHT BREAST; LUMP; RIGHT BREAST PAIN Personal history of left breast cancer in 2011 status post mastectomy with transflap reconstruction. COMPARISON: 03/24/2024, 03/23/2023. TECHNIQUE: Right diagnostic digital breast tomosynthesis with 2D and 3D images. Computer aided detection. Also, targeted right breast ultrasound was performed. FINDINGS: TISSUE DENSITY: There are scattered areas of fibroglandular density. MAMMOGRAM: The patient presents with area of concern in the lateral right breast. There are no suspicious mammographic findings in the lateral right breast. There are no suspicious masses, grouped calcifications or architectural distortions. ULTRASOUND: Targeted right breast ultrasound performed as the area of interest in the lateral right breast. The ultrasound demonstrates no suspicious masses, abnormal cystic elements or other suspicious findings in the lateral right breast. US/Breast Limited Unilateral IMPRESSION: There are no suspicious mammographic or sonographic findings in the area of patient's concern in the lateral right breast. There is no evidence of malignancy in the right breast. BI-RADS 1: NEGATIVE. RECOMMEND ANNUAL MAMMOGRAPHIC SCREENING. Reading Location: [id number] CC: Dr. Pablito Aaron MD; Dr. Cheryl Rivera MD ~ Vocational Instructor: Signed [facility] 12-26-2024 Evaluation note Diagnosis Onset Date Resolution Lump of right breast acute Dar h 2024 11:04am Mastalgia acute December 26 11:04am Breast cancer chronic December 26, 2024 11:04am Lichen sclerosus chronic December 262024 11:04am Encounter for routine gynecological examination noneactive December 26, 2024 11:04am Nasal congestion acute January 032024 9:40am Rhinorrhea acute January 03 9:40am Viral URI with cough acute Dar h 2024 9:40am [facility] Work Phone: 1(220) 865-567012-13-2024 Evaluation note* Diagnosis Onset Date Resolution Status Admit Date Dysphagia acute September 26, 2024 9:51am GERD (gastroesophageal reflu x disease) acute September 26, 024 9:51am Lump of right breast acute Dar h 2024 11:04am Mastalgia acute December 26 11:04am Breast cancer chronic December 26, 2024 11:04am Lichen sclerosus chronic December 262024 11:04am Encounter for routine gynecological examination noneactive December 26, 2024 11:04am Nasal congestion acute January 032024 9:40am Rhinorrhea acute January 03 9:40am Viral URI with cough acute Dar h 2024 9:40am [facility] Work Phone: 1(295) 741-295602-22-2024 Miscellaneous Notes* Telephone Encounter - Mary Albert RN - 12/06/2023 11:58 AM EST Records sent to medical records for scanning. * Telephone Encounter - Liliam Contreras APRN.CNP - 12/06/2023 10:49 AM EST Records reviewed. Of note, pathology report from 11/30/2023 shows she had a cutaneous horn removed from the umbilicus,negative for malignancy. Please scan into EMR. Handed to nursing staff. Liliam Contreras APRN.CNP * Telephone Encounter - Mary Albert RN - 12/05/2023 11:13 AM EST Received outside medical records from [facility] via fax. Records placed on Liliam Contreras CNP desk for review. documented in this encounterAcmc [facility] System02-20-2023 Instructions* Patient Instructions* Yvonne Petersno LPN - 12/04/2022 3:14 PM EST GENERAL SUN SAFETY Thank you for allowing me to examine you for signs of skin cancer today. We had an opportunity to discuss my findings and any treatments I recommended. I believe that there are several steps that a person can do to help prevent skin cancers and to detect them at an early, treatable stage: 1. I highly recommend that once a month you perform your own complete skin check looking for changing or unusual spots. Use a wall-mounted mirror and a hand mirror to assist in seeing body areas thatare difficult to see otherwise. If you have a family member that can assist, this is often helpful.Additional information can be obtained at: www.skincancer.org/pkyu-nlomyw-etdmxjdedej/early-detection 2. In many cases, skin cancer can be prevented. The best way to protect yourself is to avoid too much sun and sunburns. Health care providers believe that ultraviolet rays (UV rays) from the sun damage the skin and over time lead to skin cancer. Here are ways to protect yourself: -Don't spend long periods of time in direct sunlight. -Wear hats with brims to protect your face and ears. -Wear long-sleeved shirts and pants to protect your arms and legs. -Use broad spectrum sunscreens with a SPF (skin protection factor) of 30 or higher that protect against burning and tanning rays. Apply the lotion 30 minutes before you go outside. (Broad-spectrum sunscreens protect against UV-B and UV-A rays.) -Wear sunglasses to protect your eyes. -Use a lip balm with sunscreen. -Avoid the sun between 10am and 4pm. -Show any changing mole to your health care provider. documented in this encounterAcmc Healthcare System02-20-2023 History of Present illness Narrative* Liliam Contreras APRN.PROJECT ASST - 12/04/2022 3:11 PM EST Images from the original note were not included. Department of Dermatology Liliam Contreras APRN.PROJECT ASST 12/04/2022 Last visit in Dermatology: 02/22/2021 Objective/Assessment/Plan 1. Pilar cyst Scalp Cystic nodule Observational course. Monitor for growth and changes. 2. Milia Head - Anterior (Face) White dome shaped 1-2mm papules. Observational course. Monitor for growth and changes. 3. Seborrheic keratosis Stuck-on verrucous, variably pigmented papules and plaques. Scattered to the trunk, bilateral upperextremities, bilateral lower extremities. Observational course. Monitor for growth and changes. 4. Multiple benign nevi Multiple scattered pink papules with flaccid epidermis and small, symmetric eli to brown macules with uniform pigmentation over the trunk and extremities. Observational course. Monitor for growth and changes. 5. Levy angioma Levy-red papule(s). Scattered to the trunk, bilateral upper extremities, bilateral lower extremities. Observational course. Monitor for growth and changes. The nature of sun-induced photo-aging and skin cancers is discussed. Sun avoidance, protective clothing, and the use of 30-SPF sunscreens is advised. Patient is instructed to perform regular self exams. Observe for changing, symptomatic, or new skin lesions and seek care with the patient's primary care provider or with dermatology if any lesions of concern are noted. Follow-up as noted below or as needed. Liliam Contreras APRN.CNP Chief Complaint: Patient presents with: Full Body Skin Check Subjective and Objective HPI: Leah Vasquez is a 62 year old female who presents for: Skin check. Desires: Total body skin check in female excluding genitals (patient has periodic examination by PCP and declines this exam) History of skin cancer?: No Areas of particular concern?: Yes: Patient has x4 areas of concern: Moles to back and back of head that are increasing in size. Small growth above right eye brow. Bilateral great toe nails are thickened, seen by podiatry. Past medical history is reviewed. Medication list is reviewed. Physical Exam included: Scalp, face, ears, neck, chest, back, abdomen, bilateral upper extremities, bilateral lower extremities, buttocks, hands, feet, nails and hair The documentation for this note was completed by Chana Madrid MA acting as scribe for Liliam Contreras APRN.CNP. December 04, 2022 3:30 PM Intake completed by Yvonne Peterson LPN I agree with the Chief Complaint, ROS, and Past Histories independently gathered by the clinical family readiness support assistant and the remaining scribed note accurately describes my personal service to the patient. Liliam Contreras APRN.CNP documented in this encounterAcmc Healthcare System10-09-2006 History of Past illness Narrative* Problem Noted Date Resolved Date Abnormal mammogram, unspecified 07/23/2006 11/22/2011 documented as of this encounter (statuses as of 12/11/2022) [facility] History of Past illness Narrative* Problem Noted Date Diagnosed Date Resolved Date Abnormal mammogram, unspecified 07/23/2006 11/22/2011 documented as of this encounter (statuses as of 12/06/2023) [facility]* Diagnosis Onset Date Resolution Status Lump of breast, right resolv ed Recurrent UTI acute Lichen sclerosus chronic Sciatica of right side chron ic [facility] Work Phone: Evaluation noteNo assessment information available [facility] Work Phone: Evaluation note* Diagnosis Onset Date Resolution Status Lump of breast, right resolv ed Skin lesion acute [facility] Work Phone: Evaluation note* Diagnosis Pilar cyst- Primary Milia Sebaceous cyst Seborrheic keratosis Other seborrheic keratosis Multiple benign nevi Benign neoplasm of skin, site unspecified Levy angioma Nevus, non-neoplastic documented in this encounter [facility]* Diagnosis Onset Date Resolution Status Encounter for preventative adult health care examinati on acute [facility] Work Phone: Evaluation note* Diagnosis Onset Date Resolution Status Bloating acute Encounter for routine gynecological examination noneactive [facility]: Summary Purpose Family History No Family History Records Found Relationship Condition Age at Onset Recorded Date/T jared mother Malignant neoplasm Unknown father Hypertension Unknown Malignant neoplasm Unknown Chronic obstructive pulmonary disease Unk nown uncle Cardiac disease Unknown grandmother Diabetes mellitus Unknown Advance Directives No Advanced Directives Records FoundNo Advanced Directives Records FoundNo Advanced Directives Records Found Chief Complaint and Reason for Visit Chief Complaint RIGHT BREAST ABNORMA L MAMMO 6 MONTHS MAMMO F/U, IMAGING 09/23 Annual (BOOTH USHER) sciatic nerve pain EORDER- LUMBAR SPINE- LEG AND BACK PAIN PAIN, WANTS MORE TESTING AND PAIN MEDS WELLNESS VISIT Reason for Visit Lump of breast, righ t Recurrent UTI Lichen sclerosus Sciatica of right side Chief Complaint WELLNESS VISIT SCREENING Chief Complaint LUMP IN RIGHT BREAST ENLARGED excision right breast granuloma R BREASTGRANULOMA Reason for Visit Lump of breast, righ t Skin lesion Chief Complaint YEARLY SCREENING Reason for Visit Encounter for preven tative adult health care examination Chief Complaint Annual (BOOTH USHER) UMBILICAL LESION Reason for Visit Bloating Encounter for routine gynecological examination Chief Complaint Annual (BOOTH USHER) UMBILICAL LESION E ORDER Abdominal distension (gaseous) Reason for Visit Bloating Encounter for routine gynecological examination Chief Complaint Annual (BOOTH USHER) UMBILICAL LESION E ORDER Abdominal distension (gaseous) EORDER Reason for Visit Bloating Encounter for routine gynecological examination Chief Complaint Annual (BOOTH USHER) UMBILICAL LESION E ORDER Abdominal distension (gaseous) EORDER ENLARGED THYROID Reason for Visit Bloating Encounter for routine gynecological examination Chief Complaint Admit Date Test Result September 26, 2024 9:51am DYSPHAGIA October 23, 2024 12 :42pm SCREENING/FRIENDS/COLLECTED $50 December 262024 9:07am Annual (BOOTH USHER) December 26, 2024 11: 04am cough January 03, 2025 9:4 0am E-ORDER January 15, 2025 8:46 am breast pain, lump of right breast January 16, 2025 2:22pm Reason for Visit Admit Date Dysphagia September 26, 2024 9:51am GERD (gastroesophageal reflux disease) D ecember 2023 9:51am Lump of right breast December 26, 2024 11 :04am Mastalgia December 26, 2024 11: 04am Breast cancer December 26, 2024 11: 04am Lichen sclerosus December 26, 2024 11: 04am Encounter for routine gynecological exam ination December 26, 2024 11:04am Nasal congestion January 03, 2025 9:4 0am Rhinorrhea January 03, 2025 9:4 0am Viral URI with cough January 03, 2025 9: 40am Chief Complaint Admit Date SCREENING/FRIENDS/COLLECTED $50 December 262024 9:07am Annual (BOOTH USHER) December 26, 2024 11: 04am cough January 03, 2025 9:4 0am E-ORDER January 15, 2025 8:46 am breast pain, lump of right breast January 16, 2025 2:22pm ENLARGED THYROID April 06, 2025 4:44 pm Reason for Visit Admit Date Lump of right breast December 26, 2024 11 :04am Mastalgia December 26, 2024 11: 04am Breast cancer December 26, 2024 11: 04am Lichen sclerosus December 26, 2024 11: 04am Encounter for routine gynecological exam ination December 26, 2024 11:04am Nasal congestion January 03, 2025 9:4 0am Rhinorrhea January 03, 2025 9:4 0am Viral URI with cough January 03, 2025 9: 40am Additional Source Comments INFORMATION SOURCE (unrecogn ized section and content) DATE CREATED AUTHOR [facility]/09/2021 [facility] DATE CREATED AUTHOR AUTHOR'S ORGANIZ ATION 12/14/2023 [facility] DATE CREATED AUTHOR AUTHOR'S ORGANIZ ATION 04/09/2025 [facility] Goals (unrecognized section and content) Goals may be documented in a n alternate sectionGoals may be documented in an alternate sectionGoals may be documented in an alternate sectionGoals may be documented in an alternate sectionGoals may be documented in an alternate sectionGoals may be documented in an alternate sectionGoals may be documented in an alternate sectionGoals may be documented in an alternate sectionGoals may be documented in an alternate sectionGoals may be documented in an alternate sectionGoals may be documented in an alternate sectionGoals may be documented in an alternate section Source Comments (unrecognize d section and content) In the event this informatio n is protected by the Federal Confidentiality of Alcohol and Drug Abuse Patient Records regulations: The Federal rules restrict any use of the information to criminally investigate or prosecute any alcohol or drug abuse patient.[facility] Healthcare SystemIn the event this information is protected by the Federal Confidentiality of Alcohol and Drug Abuse Patient Records regulations: The Federal rules restrict any use of the information to criminally investigate or prosecute any alcohol or drug abuse patient.[facility] Reason for Visit (unrecogniz ed section and content) Reason Comments Full Body Skin Check Reason Comments Received Outside Medical Records Care Teams (unrecognized sec tion and content) Team Status: Active Member Role Status Dates Dr. Pablito Aaron MD Primary Care Provider Active Team Status: Active Member Role Status Dates Dr. Pablito Aaron MD Primary Care Provider Active Start: December 26, 2024 Self Referred Attending Provider Active Start: [facility] 2024 Self Referred Referring Provider Active Start: [facility] 2024 Team Status: Inactive Member Role Status Dates Dr. Pablito Aaron MD Primary Care Provider Active Start: December 26, 2024 End: December 26, 2024 Dr. Pablito Aaron MD Referring Provider Active Start: December 26, 2024 End: December 26, 2024 Dr. Cheryl Rivera MD Attending Provider Active Start: December 26, 2024 End: December 26, 2024 Team Status: Inactive Member Role Status Dates Dr. Pablito Aaron MD Primary Care Provider Active Start: January 03, 2025 End: January 03, 2025 Dr. Pablito Aaron MD Referring Provider Active Start: January 03, 2025 End: January 03, 2025 SHABBIR RichardsC Attending Provider Active Start: January 03, 2025 End: January 03, 2025 Team Status: Inactive Member Role Status Dates Dr. Pablito Aaron MD Primary Care Provider Active Start: January 15, 2025 End: January 15, 2025 Latricia Jerry NP MARKETING TECHNOLOGIST-C Attending Provider Active S tart: January 15, 2025 End: January 15, 2025 Latricia Jerry NP MARKETING TECHNOLOGIST-C Referring Provider Active S tart: January 15, 2025 End: January 15, 2025 Team Status: Inactive Member Role Status Dates Dr. Pablito Aaron MD Primary Care Provider Active Start: January 16, 2025 End: January 16, 2025 Dr. Cheryl Rivera MD Attending Provider Active Start: January 16, 2025 End: January 16, 2025 Dr. Cheryl Rivera MD Referring Provider Active Start: January 16, 2025 End: January 16, 2025 Team Status: Inactive Member Role Status Dates Dr. Pablito Aaron MD Primary Care Provider Active Start: April 06, 2025 End: April 06, 2025 Dr. Pablito Aaron MD Attending Provider Active Start: April 06, 2025 End: April 06, 2025 Dr. Pablito Aaron MD Referring Provider Active Start: April 06, 2025 End: April 06, 2025 Global Project Manager Relationship Specialty Start Date End Date Tiana Raymundo MD PCP - General Internal Medicine 04/09/18 Team Status: Active Member Role Status Dates Dr. Tiana Raymundo MD Family Provider Active Dr. Tiana Raymundo MD Primary Care Provider Active Team Status: Inactive Member Role Status Dates Dr. Tiana Raymundo MD Primary Care Provider, Refer ring Provider Active Steve Cole MARKETING TECHNOLOGIST, MARKETING TECHNOLOGIST-C Attending Provider Active Team Status: Inactive Member Role Status Dates Dr. Tiana Raymundo MD Primary Care Provider Active Dr. Cheryl Rivera MD Attending Provider, Referr ing Provider Active Team Status: Inactive Member Role Status Dates Dr. Tiana Raymundo MD Primary Care Provider Active Steve Cole MARKETING TECHNOLOGIST, MARKETING TECHNOLOGIST-C Attending Provider, Referring Prov ider Active Team Status: Active Member Role Status Dates Dr. Tiana Raymundo MD Family Provider Active Tiff López DO Primary Care Provider Active Team Status: Inactive Member Role Status Dates Dr. Tiana Raymundo MD Primary Care Provider, Refer ring Provider Active Dr. Cheryl Rivera MD Attending Provider Active Global Project Manager Relationship Specialty Start Date End Date Tiana Raymundo MD PCP - General Internal Medicine 04/09/18 Team Status: Inactive Member Role Status Dates Tiff López DO Primary Care Provi mis, Attending Provider, Referring Provider Active Team Status: Active Member Role Status Dates Dr. Cheryl Rivera MD Attending Provider, Referr ing Provider Active Tiff López DO Primary Care Provider Active Team Status: Inactive Member Role Status Dates Dr. Cheryl Rivera MD Attending Provider, Referr ing Provider Active Tiff López DO Primary Care Provider Active Team Status: Inactive Member Role Status Dates Tiff López DO Primary Care Provider Active Latricia Jerry MARKETING TECHNOLOGIST, MARKETING TECHNOLOGIST-C Attending Provider, Referring Pro vider Active Team Status: Active Member Role Status Dates Dr. Tiana Raymundo MD Family Provider Active Latricia Jerry MARKETING TECHNOLOGIST, MARKETING TECHNOLOGIST-C Primary Care Provider Active Team Status: Inactive Member Role Status Dates Latricia Jerry MARKETING TECHNOLOGIST, MARKETING TECHNOLOGIST-C Primary Care Provid er, Attending Provider, Referring Provider Active Team Status: Inactive Member Role Status Dates Dr. Pabilto Aaron MD Primary Care Provider Active Start: September 26, 2024 End: September 26, 2024 Dr. Pablito Aaron MD Referring Provider Active Start: September 26, 2024 End: September 26, 2024 Dr. Deven Noel DO Attending Provider Active Start: September 26, 2024 End: September 26, 2024 Team Status: Inactive Member Role Status Dates Dr. Pablito Aaron MD Primary Care Provider Active Start: October 23, 2024 End: October 23, 2024 Dr. Deven Noel DO Attending Provider Active Start: October 23, 2024 End: October 23, 2024 Dr. Deven Noel DO Referring Provider Active Start: October 23, 2024 End: October 23, 2024 Team Status: Inactive Member Role Status Dates Dr. Pablito Aaron MD Primary Care Provider Active Start: October 24, 2024 End: October 24, 2024 Dr. Pablito Aaron MD Attending Provider Active Start: October 24, 2024 End: October 24, 2024 Dr. Pablito Aaron MD Referring Provider Active Start: October 24, 2024 End: October 24, 2024 Team Status: Active Member Role Status Dates Dr. Pablito Aaron MD Primary Care Provider Active Start: January 16, 2025 Dr. Cheryl Rivera MD Attending Provider Active Start: January 16, 2025 Dr. Cheryl Rivera MD Referring Provider Active Start: January 16, 2025 FOR RECORDS PERTAINING TO PATIENTS WHO ARE OR HAVE BEEN ENROLLED IN A CHEMICAL DEPENDENCY/SUBSTANCEABUSE PROGRAM, SOME INFORMATION MAY BE OMITTED. This clinical summary was aggregated from multiple sources. Caution should be exercised in using it in the provision of clinical care. This summary normalizes information from multiple sources, and as a consequence, information in this document may materially change the coding, format and clinical context of patient data. In addition, data may be omitted in some cases. CLINICAL DECISIONS SHOULD BE BASED ON THE PRIMARY CLINICAL RECORDS. [email or web address] provides no warranty or guarantee of the accuracy or completeness of information in this document.
[2025-05-01 11:11] LABS: AST(SGOT) 27 U/L (<=31); Alanine Aminotransfer ALT/SGPT 20 U/L (<=34); Albumin, Serum 4.5 g/dL (3.4-4.8); Alkaline Phosphatase 96 U/L (35-104); Anion Gap 9 (5-15); BUN 15 mg/dL (4-19); BUN/Creat Ratio 18.4 RATIO (10-20); Calcium,Total 9.7 mg/dL (7.6-11.0); Carbon Dioxide 26.6 mmol/L (21.0-32.0); Chloride 105 mmol/L (98-108); Free T3 3.0 pg/mL (2.18-3.98); Globulin 2.5 g/dL (2.2-4.2); Glucose 77 mg/dL (70-99); Potassium 4.4 mmol/L (3.3-5.1)
== END | disposition home or self-care (01) ==
LOC: MTLAB 08:28
PROVIDERS: PCP Family Medicine; Referring Provider Family Medicine; Visit Provider Family Medicine
DX: R79.89 Other specified abnormal findings of blood chemistry (principal); E04.9 Nontoxic goiter, unspecified
CPT/HCPCS: 36415; 80053; 84439; 84443; 84481

== ENCOUNTER → 2025-05-06 | Outpatient (CLI) | payer OTHER, SELFPAY | END | disposition home or self-care (01) | LOC: LABSPEC 16:58 | PROVIDERS: PCP Family Medicine; Visit Provider Physician Assistant | DX: R30.0 Dysuria (principal) | CPT/HCPCS: 87077; 87086; 87088; 87186 ==

== ENCOUNTER → 2025-08-07 | Outpatient (CLI) | payer OTHER, SELFPAY ==
[2025-08-07 15:27] LABS: Free T3 2.8 pg/mL (2.18-3.98)
== END | disposition home or self-care (01) ==
LOC: MFPLAB 11:45
PROVIDERS: PCP Family Medicine; Visit Provider Family Medicine
DX: E03.9 Hypothyroidism, unspecified (principal)
CPT/HCPCS: 36415; 84439; 84443; 84481